=== PATIENT | female | born 1955 | race Caucasian/White ===

== ENCOUNTER 2024-05-06 12:58 | Inpatient (IN) | payer BC, MEDICARE, SELFPAY ==
--- NOTE | 2024-05-06 13:06 | HMH.PHAINT1 ---
Pharmacy Intervention Comments: MEDICATION RECONCILIATION COMPLETED ON PATIENT USING EXTERNAL FILL HISTORY FROM PHARMACY. -KARIE LUGO, STEPHANYD
[2024-05-06 13:08] VITALS: BP 187/74; PULSE 75; RESP 18; TEMP 36.5; O2SAT 98; BMI 35.5
--- NOTE | 2024-05-06 13:08 | ECG_ITS ---
APPROVED REPORT Exam: Resting ECG HR:74 bpm ECG Measurements Heart Rate 74 AXES NV 166 P 22 QRSd 88 QRS 24 QT 392 T 15 QTc 419 Conclusion SINUS RHYTHM LOW QRS VOLTAGE IN PRECORDIAL LEADS [QRS DEFLECTION < 1.0 mV IN CHEST LEADS] BORDERLINE ECG UNCONFIRMED REPORT Electronically signed by : Steve Husain MD 05/06/2024 21:12:06
--- NOTE | 2024-05-06 13:12 | P.HP_ITS ---
History of Present Illness *Admission Date: 05/06/24 *Reason for visit:: chf exacerbation *History of present illness: Ms. Reyes is a 68-year-old female with history of diabetes and hypertension who originally presented to [facility] with shortness of breath that is worsened over the past week. States she has been having increased swelling in her legs over the past few months. Increased dyspnea with exertion. Recently saw cardiology in [place] and had an echo that showed a leaky valve but she does not know any further results. She has had weight gain of at least 20 pounds in the past few months. Denies nausea, vomiting, diarrhea. Feels like her belly has been a little bit more bloated. Normally has stable blood pressure and stable on room air. On arrival to the hospital at [place] her sats were in the 70s. Necessitated supplemental oxygen. Kidney function slightly abnormal with creatinine of 1.5. Reportedly her diabetes is well-controlled with normal A1c and medications have been discontinued over the past year. Troponin with no delta on the labs. Chest x-ray was obtained showing large effusion on the right side. Medicine was consulted for admission and transfer for cardiology evaluation and workup. On arrival to our facility. Patient sats are in the mid 90s on 4 L oxygen. She has 3+ edema in her legs all the way up to her lower abdomen. She is alert and oriented x 4. Remains mildly hypertensive. Received 10 mg of hydralazine and 5 mg of Lopressor at [facility] along with 40 mg IV once of Lasix. Has voided once but unknown exact volume. Denies chest pain at this time. Currently has Nitropaste on her chest. EKG obtained on arrival showing low voltage sinus rhythm. [facility] Disclaimer: The information contained in this section may have been updated after the patient was seen, as this information can be updated by other users. Medical History (Updated 05/06/24 @ 16:00 by Jaziel Hancock MD) Edema Asthma Pneumonia Blind right eye Hyperlipidemia Diabetes mellitus CHF (congestive heart failure) Hypertension Surgical History History of tubal ligation History of ERCP H/O: History of left knee replacement Family History Other AD (Alzheimer's disease) Colorectal cancer Social History (Updated 05/06/24 @ 16:06 by Jaziel Hancock MD) Smoking Status: Never smoker alcohol intake: never current occupational status: employed Travel in the last 8 weeks: None Review of Systems Review of Systems Review of systems (narrative): 14 point review of systems performed, pertinent positives and negatives as per HPI Meds Home Medications and Allergies Home Medications ?Medication ?Instructions ?Recorded ?Confirmed ?Type atorvastatin 40 mg tablet 40 mg PO HS 05/06/24 05/06/24 History bumetanide 1 mg tablet 1 mg PO DAILY 05/06/24 05/06/24 History potassium chloride 10 mEq 10 meq PO DAILY 05/06/24 05/06/24 History tablet,extended release triamterene 37.5 1 tab PO DAILY 05/06/24 05/06/24 History mg-hydrochlorothiazide 25 mg tablet New Prescriptions to Start Prescriptions: Allergies Allergy/AdvReac Type Severity Reaction Status Date / Time pentazocine (From [employer]) Allergy Dizziness Verified 05/06/24 13:39 Exam Constitutional Constitutional: mild distress, obese, chronically ill appearing and cooperative *Routine HEENT Exam Head: Present normocephalic Eye: Present EOMI and PERRL ENT: Present mucous membranes moist *Routine Neck Exam Neck: Present supple; Absent lymphadenopathy *Routine Respiratory Exam Respiratory: Present prolonged expiratory phase, crackles and diminished air movement (in right lower lung field); Absent rhonchi or wheezes *Routine Cardiovascular Exam Cardiovascular: Present RRR *Routine Abdominal Exam Abdominal: Present soft and normoactive bowel sounds; Absent tenderness *Routine Rectal Exam Rectal:: deferred *Routine Genitalia Exam Genitalia:: deferred *Routine Extremities Exam Extremities: Present edema (3+ to lower abdomen); Absent cyanosis or clubbing *Routine Skin Exam Skin: Present warm; Absent rash *Routine Neurological Exam Neurological: Present alert, oriented X3 and moving all extremities; Absent altered mental status Assessment and Plan *Assessment and plan (1) Acute heart failure: Status: Acute Category: Medical Code(s): I50.9 - Heart failure, unspecified (2) Diabetes mellitus: Status: Chronic Category: Medical Code(s): E11.9 - Type 2 diabetes mellitus without complications (3) Hyperlipidemia: Status: Acute Category: Medical Code(s): E78.5 - Hyperlipidemia, unspecified (4) Hypertension: Status: Acute Category: Medical Code(s): I10 - Essential (primary) hypertension (5) Obesity (BMI 30-39.9): Status: Chronic Category: Medical Code(s): E66.9 - Obesity, unspecified Plan 68-year-old female admitted as transfer from [facility] due to acute CHF with development of effusion. Discussed case with ER physician at [facility], request admission for cardiology evaluation and further treatment of her effusion and volume overload. I agreed to admit for further care. Admitted to [facility] with telemetry due to unstable suspected heart failure that is acute and poses significant threat to function. Initiating aggressive diuresis. Given 2 mg Bumex on arrival, if not responding well will initiate Bumex drip. Continue supplemental oxygen as needed for goal sats greater 90%. Currently on 4 L. Remains hypertensive, will administer 37.5 mg once of irbesartan, Mr. Home medications today. Will initiate 75 mg irbesartan daily in the morning. Bumex 2 mg IV twice daily Initiate spironolactone 25 mg twice daily CBC, CMP, magnesium ordered for the morning Serial troponin pending Repeat BMP this evening to monitor kidney function A1c, TSH pending for the morning CT of the chest without contrast due to unknown kidney function and concern for KRIS. Will evaluate extent of effusion and other thoracic pathology. Echo ordered for the morning Cardiology consulted Reviewed chest x-ray results from [facility], shows effusion on right side. Full code Due to inability to obtain CTA, risk for PE, will therapeutically anticoagulate with 1 mg/kg Lovenox Cardiac diet Surrogate decision maker is her
[2024-05-06 14:09] LABS: NT Pro Brain Natriuretic Pep. 1610 pg/mL (0-125)
[2024-05-06 14:12] LABS: Troponin I < 0.01 ng/ml (0.00-0.034)
[2024-05-06 15:03] LABS: Coronavirus 19, PCR Not Detected (NotDetected); Influenza A, PCR Not Detected (NotDetected); Influenza B, PCR Not Detected (NotDetected)
[2024-05-06] MEDS: SPIRONOLACTONE 25MG TABLET 25 MG PO (15:18)
[2024-05-06] MEDS: BUMETANIDE 1MG/4ML VIAL 2 MG IV ×2 (15:19→21:03)
[2024-05-06] MEDS: humaLOG 100 UNITS/ML 10ML VIAL (SSI) SUBCUT ×2 (15:29→21:02)
[2024-05-06 15:33] LABS: POC Glucose,Bedside 201 (70-110)
--- NOTE | 2024-05-06 15:55 | CT_ITS ---
PROCEDURE INFORMATION: Exam: CT Chest Without Contrast; Diagnostic Exam date and time: 05/06/2024 5:34 PM Age: 68 years old Clinical indication: Dyspnea; Additional info: Effusion, dyspnea TECHNIQUE: Imaging protocol: Diagnostic computed tomography of the chest without contrast. Radiation optimization: All CT scans at this facility use at least one of these dose optimization techniques: automated exposure control; mA and/or kV adjustment per patient size (includes targeted exams where dose is matched to clinical indication); or iterative reconstruction. COMPARISON: No relevant prior studies available. FINDINGS: Lungs: Severe compressive right pulmonary atelectasis. Pleural spaces: Small left pleural effusion. Heart: Tiny pericardial effusion. Coronary arteries: Atherosclerotic calcification of left anterior descending coronary artery. Lymph nodes: Calcified mediastinal and hilar lymph nodes. No enlarged lymph nodes. Vasculature: Mild atherosclerotic calcification of thoracic aorta. No aneurysm. Bones/joints: Unremarkable. No acute fracture. Soft tissues: Unremarkable. Other findings: Near-complete opacification of right chest. IMPRESSION: 1. Very large right pleural effusion with severe compressive atelectasis. Small left pleural effusion. 2. Pericardial effusion.
[2024-05-06 16:00] VITALS: BP 159/76; PULSE 75; PULSE 80; RESP 16; TEMP 36.4; O2SAT 98
[2024-05-06] MEDS: ENOXAPARIN 100MG/ML SYRINGE 100 MG SUBCUT (17:00)
[2024-05-06] MEDS: IRBESARTAN 75MG TABLET 37.5 MG PO (17:00)
[2024-05-06 17:11] LABS: Troponin I < 0.01 ng/ml (0.00-0.034)
[2024-05-06 19:31] LABS: Troponin I 0.02 ng/ml (0.00-0.034)
[2024-05-06 19:37] LABS: Chloride 102 mmol/L (98-107); Potassium 4.4 mmoL/L (3.5-5.1); Sodium 133 mmol/L (136-145)
[2024-05-06 19:40] LABS: Anion Gap 6.4 mEq/L (5-15); Blood Urea Nitrogen 24 mg/dl (7-17); Carbon Dioxide 29 mmol/L (22.0-30.0); Creatinine Clearance Estimated 71 mL/min (50-200); Estimated Glomerular Filt Rate 45 ml/min (>60); GFR (African American) 54 ML/MIN (>60)
[2024-05-06 19:41] LABS: Calcium 8.3 mg/dl (8.4-10.2); Glucose 192 mg/dl (74-100)
[2024-05-06 20:00] VITALS: BP 160/82; PULSE 80; PULSE 82; RESP 18; TEMP 36.8; O2SAT 99
[2024-05-06 20:52] LABS: POC Glucose,Bedside 193 (70-110)
[2024-05-06] MEDS: ATORVASTATIN 40MG TABLET 40 MG PO (21:02)
[2024-05-07] VITALS (8 sets, daily range): BP systolic 148–163; BP diastolic 56–89; PULSE 60–86; RESP 16–20; TEMP 36.6–36.7; O2SAT 96–100; BMI 34.7
[2024-05-07] MEDS: ENOXAPARIN 100MG/ML SYRINGE 100 MG SUBCUT (04:00)
--- NOTE | 2024-05-07 05:06 | PC.NURSE ---
V/s, ox4. NPO at midnight for Echo in AM. Pt denied SOB, tolerating 4LNC satting in the 90's. No acute events to report, plan of care ongoing.
[2024-05-07 05:30] LABS: POC Glucose,Bedside 125 (70-110)
[2024-05-07 06:36] LABS: Basophils % 0.7 % (0.1-2.0); Eosinophils % 0.5 % (0.1-12.0); Hematocrit 33.2 % (37.0-47.0); Hemoglobin 11.1 g/dL (12.2-16.2); Lymphocytes % 18.1 % (10-50); Mean Corpuscular HGB Conc 33.4 g/dL (31.8-35.4); Mean Corpuscular Hemoglobin 29.6 pg (27.0-31.2); Mean Corpuscular Volume 88.5 fl (81-99); Mean Platelet Volume 11.5 fl (7.4-10.4); Monocytes # 0.5 K/mm3 (0.1-1.0); Monocytes % 8.3 % (1.7-9.3); Neutrophils # 4.1 K/mm3 (1.8-7.8); Neutrophils % 72.2 % (37.0-80.0); Platelet Count 99 K/mm3 (142-424); Red Blood Count 3.75 M/mm3 (4.20-5.40); Red Cell Distribution Width 12.7 % (11.5-17.5); White Blood Count 5.7 K/mm3 (4.8-10.8)
[2024-05-07 06:42] LABS: Alanine Aminotransferase 19 U/L (12-78); Albumin Level 3.2 g/dl (3.5-5.0); Albumin/Globulin Ratio 1.3 (1.1-1.8); Alkaline Phosphatase 117 U/L (38-126); Aspartate Amino Transferase 42 U/L (14-36); Bilirubin,Total 0.7 mg/dl (0.2-1.3); Blood Urea Nitrogen 23 mg/dl (7-17); Calcium 9.3 mg/dl (8.4-10.2); Carbon Dioxide 30 mmol/L (22.0-30.0); Chloride 104 mmol/L (98-107); Chol/HDL Ratio 2.7 (1-3.5); Cholesterol 156 mg/dl (140-200); Creatinine Clearance Estimated 70 mL/min (50-200); Estimated Glomerular Filt Rate 45 ml/min (>60); GFR (African American) 54 ML/MIN (>60); Globulin 2.5 g/dL (1.3-3.2); Glucose 127 mg/dl (74-100); HDL Cholesterol 57 mg/dl (40-60); Magnesium 1.6 mg/dl (1.6-2.3); Sodium 137 mmol/L (136-145); Total Protein,Serum 5.7 g/dl (6.3-8.2); Triglycerides 72 mg/dl (30-150); VLDL Cholesterol 14 mg/dL (0-40)
[2024-05-07 06:43] LABS: Hemoglobin A1C 5.4 % (4.0-6.0)
[2024-05-07 07:04] LABS: Anion Gap 7.1 mEq/L (5-15); Potassium 4.1 mmoL/L (3.5-5.1)
[2024-05-07 07:49] LABS: Thyroid Stimulating Hormone 2.69 uIU/mL (0.465-4.68)
--- NOTE | 2024-05-07 07:49 | P.PN_ITS ---
Subjective *Date: 05/07/24 *Time: 22:04 Interval history: Responding to diuretic but slowly. Still on 4 L oxygen on morning rounds. Pulmonology to see today. -1 L since admission. Afebrile. Reports feeling comfortable. Complains of right chest/lung pain when she takes a deep breath. No nausea or vomiting. Medical Exam Vital signs and Labs for Last 24 Hours: Vital Signs Temp Pulse Pulse Resp BP Pulse Ox O2 Del Method 05/07/24 06:32 Nasal Cannula 05/07/24 04:54 Nasal Cannula 05/07/24 04:00 98.0 F 84 16 162/89 H 98 Nasal Cannula 05/07/24 04:00 80 05/07/24 03:00 Nasal Cannula 05/07/24 01:00 Nasal Cannula 05/07/24 00:00 60 05/07/24 00:00 98.0 F 82 16 161/80 H 98 Nasal Cannula 05/06/24 23:00 Nasal Cannula 05/06/24 21:00 Nasal Cannula 05/06/24 20:00 Nasal Cannula 05/06/24 20:00 98.2 F 82 18 160/82 H 99 Room Air 05/06/24 20:00 80 05/06/24 18:31 Nasal Cannula 05/06/24 18:22 Nasal Cannula 05/06/24 17:00 Nasal Cannula 05/06/24 16:00 80 05/06/24 16:00 97.5 F L 75 16 159/76 H 98 Nasal Cannula 05/06/24 15:00 Nasal Cannula 05/06/24 13:08 97.7 F 75 18 187/74 H 98 Nasal Cannula 05/06/24 13:04 Nasal Cannula O2 Flow Rate 05/07/24 06:32 4 05/07/24 04:54 4 05/07/24 04:00 4 05/07/24 04:00 05/07/24 03:00 4 05/07/24 01:00 4 05/07/24 00:00 05/07/24 00:00 4 05/06/24 23:00 4 05/06/24 21:00 4 05/06/24 20:00 4 05/06/24 20:00 05/06/24 20:00 05/06/24 18:31 4 05/06/24 18:22 4 05/06/24 17:00 4 05/06/24 16:00 05/06/24 16:00 4 05/06/24 15:00 4 05/06/24 13:08 4 05/06/24 13:04 4 Intake and Output 05/06/24 05/06/24 05/07/24 15:59 23:59 07:59 Intake Total 270 / 270 0 / 0 Output Total 500 / 900 775 / 775 Balance -230 / -630 -775 / -775 Intake: Intake, Oral Amount 270 / 270 0 / 0 Output: Output, Urine Amount 500 / 900 775 / 775 Other: Weight 99.932 kg 98.203 kg Patient Weight 05/07/24 23:59 Weight 98.203 kg Laboratory Results - last 24 hr 05/06/24 13:45: Troponin I < 0.01, NT-Pro-B Natriuret Pep 1610 H 05/06/24 13:57: SARS-CoV-2 (PCR) Not detected, Influenza A Untype (PCR) Not detected, Influenza Type B (PCR) Not detected 05/06/24 15:26: POC Glucose 201 H 05/06/24 16:20: Troponin I < 0.01 05/06/24 19:02: Sodium 133 L, Potassium 4.4, Chloride 102, Carbon Dioxide 29, Anion Gap 6.4, BUN 24 H, Creatinine 1.20 H, Estimated Creat Clear 71, Estimated GFR 45 L, Est GFR ( Amer) 54 L, Glucose 192 H, Calcium 8.3 L, Troponin I 0.02 05/06/24 20:46: POC Glucose 193 H 05/07/24 05:22: POC Glucose 125 H 05/07/24 05:49: WBC 5.7, RBC 3.75 L, Hgb 11.1 L, Hct 33.2 L, MCV 88.5, MCH 29.6, MCHC 33.4, RDW 12.7, Plt Count 99 L, MPV 11.5 H, Neut % (Auto) 72.2, Lymph % (Auto) 18.1, [place] % (Auto) 8.3, Eos % (Auto) 0.5, Baso % (Auto) 0.7, Neut # (Auto) 4.1, Lymph # (Auto) 1.0, [place] # (Auto) 0.5, Eos # (Auto) 0.0, Baso # (Auto) 0.0, Sodium 137, Potassium 4.1, Chloride 104, Carbon Dioxide 30, Anion Gap 7.1, BUN 23 H, Creatinine 1.20 H, Estimated Creat Clear 70, Estimated GFR 45 L, Est GFR ( Amer) 54 L, Glucose 127 H D, Hemoglobin A1c 5.4, Calcium 9.3, Magnesium 1.6, Total Bilirubin 0.7, AST 42 H, ALT 19, Alkaline Phosphatase 117, Total Protein 5.7 L, Albumin 3.2 L, Globulin 2.5, Albumin/Globulin Ratio 1.3, Triglycerides 72, Cholesterol 156, LDL Cholesterol Direct 62.50 L, VLDL Cholesterol 14, HDL Cholesterol 57, Cholesterol/HDL Ratio 2.7, TSH 2.69 I & O for Labs for Last 24 Hours: Intake & Output 05/04/24 05/05/24 05/06/24 05/07/24 23:59 23:59 23:59 23:59 Intake Total 270 / 270 0 / 0 Output Total 500 / 900 775 / 775 Balance -230 / -630 -775 / -775 Weight 99.932 kg 98.203 kg Constitutional: Present mild distress, obese, chronically ill appearing and cooperative Head: Present atraumatic and normocephalic ENT: Present normal exam Respiratory: Present accessory muscle use and diminished air movement (Right lung field); Absent rhonchi, wheezes or crackles Cardiac: Present Reg Rate and Rhythm GI: Present soft and normal bowel sounds; Absent distention or tenderness Extremities: Present normal inspection, full ROM and edema (3+ to thighs) Skin: Present intact; Absent erythema Neuro: Present Grossly Intact, alert, awake, oriented x 3 and moves all extremities Assessment and Plan *Assessment and plan (1) Acute heart failure: Status: Acute Qualifiers: Heart failure type: unspecified Qualified Code(s): I50.9 - Heart failure, unspecified Category: Medical Code(s): I50.9 - Heart failure, unspecified (2) Diabetes mellitus: Status: Chronic Qualifiers: Diabetes mellitus complication status: without complication Diabetes mellitus intermission coordinator insulin use: without intermission coordinator use Diabetes mellitus type: type 2 Qualified Code(s): E11.9 - Type 2 diabetes mellitus without complications Category: Medical Code(s): E11.9 - Type 2 diabetes mellitus without complications (3) Hyperlipidemia: Status: Acute Qualifiers: Hyperlipidemia type: mixed hyperlipidemia Qualified Code(s): E78.2 - Mixed hyperlipidemia Category: Medical Code(s): E78.5 - Hyperlipidemia, unspecified (4) Hypertension: Status: Acute Qualifiers: Hypertension type: primary hypertension Qualified Code(s): I10 - Essential (primary) hypertension Category: Medical Code(s): I10 - Essential (primary) hypertension (5) Obesity (BMI 30-39.9): Status: Chronic Category: Medical Code(s): E66.9 - Obesity, unspecified Plan 68-year-old female admitted as transfer from [facility] due to acute CHF with development of effusion. Discussed case with ER physician at [facility], request admission for cardiology evaluation and further treatment of her effusion and volume overload. I agreed to admit for further care. Admitted to [facility] with telemetry due to unstable suspected heart failure that is acute and poses significant threat to function. Initiating aggressive diuresis. Given 2 mg Bumex on arrival. Response inadequate. Initiate Bumex drip today. Cardiology evaluating. Pulmonology consulted for thoracentesis. Continue supplemental oxygen as needed for goal sats greater 90%. Currently on 4 L. Continues to require inpatient management. Acute HFpEF Pleural effusion -Continue irbesartan 75 mg daily. Continue diuretics with Bumex drip. Strict I's and O's. -Echo obtained showing preserved EF, elevated RVSP. Consistent with HFpEF. -White count normal at 5.7, BUN 23, creatinine 1.2, magnesium 1.6 and potassium 4.1. Repeat CBC, CMP, magnesium ordered for the morning. Close monitoring of electrolytes with diuresis. -Continue spironolactone 25 mg twice daily -Discussed case with pulmonology, plan for thoracentesis today and will leave pigtail in place for drainage of large effusion. Wean oxygen as tolerated for goal sats greater 90%. Anticipate improvement as effusion drains and lung expands. -Serial troponins were negative. A1c obtained at 5.4. -Reviewed CT chest from yesterday, per my review has very large right sided pleural effusion, small pericardial effusion. Compressive atelectasis of right middle and lower lobe -Will consider further ischemic eval pending response to diuresis and medical optimization of her heart failure; cardiology assisting with care. Full code Cardiac diet Lovenox 40 mg subcu daily Surrogate decision maker is her
[2024-05-07] MEDS: POTASSIUM CHLORIDE 10MEQ CAPSULE.ER 10 MEQ PO (08:36)
[2024-05-07] MEDS: BUMETANIDE 10 MG in 0.9 % SODIUM CHLORIDE 60 ML 5 MG IV (08:36)
[2024-05-07] MEDS: IRBESARTAN 75MG TABLET 75 MG PO (08:36)
[2024-05-07] MEDS: SPIRONOLACTONE 25MG TABLET 25 MG PO ×2 (08:36→16:21)
--- NOTE | 2024-05-07 08:45 | P.CONCA_ITS ---
History of Present Illness History of Present Illness Consult date: 05/07/24 Requesting physician: Jaziel Hancock Consult reason: congestive heart failure Chief complaint: CHF, Right Pleural Effusion Additional Medical History:: 1. Left surgery, 2023 2. HTN 3. DM, treated for years A. 50-60 lb wt loss due to dental work in 2023 B. DM meds stopped due to hypoglycemia, 02/2024 4. Obesity 5. CHF with large right pleural effusion and partial lung collapse, 04/2024 History of present illness: Ms. Reyes is a 68-year-old female with history of diabetes and hypertension who originally presented to [facility] with shortness of breath that is worsened over the past week. States she has been having increased swelling in her legs over the past few months. Increased dyspnea with exertion. Recently saw cardiology in [place] and had an echo that showed a leaky valve but she does not know any further results. She has had weight gain of at least 20 pounds in the past few months. Denies nausea, vomiting, diarrhea. Feels like her belly has been a little bit more bloated. Normally has stable blood pressure and stable on room air. On arrival to the hospital at [place] her sats were in the 70s. Necessitated supplemental oxygen. Kidney function slightly abnormal with creatinine of 1.5. Reportedly her diabetes is well-controlled with normal A1c and medications have been discontinued over the past year. Troponin with no delta on the labs. Chest x-ray was obtained showing large effusion on the right side. Medicine was consulted for admission and transfer for cardiology evaluation and workup. On arrival to our facility. Patient sats are in the mid 90s on 4 L oxygen. She has 3+ edema in her legs all the way up to her lower abdomen. She is alert and oriented x 4. Remains mildly hypertensive. Received 10 mg of hydralazine and 5 mg of Lopressor at [facility] along with 40 mg IV once of Lasix. Has voided once but unknown exact volume. Denies chest pain at this time. Currently has Nitropaste on her chest. EKG obtained on arrival showing low voltage sinus rhythm. The above per Dr. Hancock H&P. Events above confirmed with the patient. She denies any prior cardiac issues except for the aforementioned leaky valve on recent echo in [place]. Hypertension has been treated for many years. Diabetes mellitus, treated for many years but recently due to 50 to 60 pound weight loss related to inability to eat from dental work resulted in hypoglycemic episodes and subsequent discontinuation of diabetes medications in the last few months. Non-smoker [facility] Disclaimer: The information contained in this section may have been updated after the patient was seen, as this information can be updated by other users. Medical History (Updated 05/07/24 @ 12:59 by GEOVANNY Bush) Pleural effusion, bilateral Acute respiratory failure with hypoxia Edema Asthma Pneumonia Blind right eye Hyperlipidemia Diabetes mellitus CHF (congestive heart failure) Hypertension Surgical History History of tubal ligation History of ERCP H/O: History of left knee replacement Family History Other AD (Alzheimer's disease) Colorectal cancer Social History (Updated 05/06/24 @ 16:06 by Jaziel Hancock MD) Smoking Status: Never smoker alcohol intake: never current occupational status: employed Travel in the last 8 weeks: None Have you lived/traveled outside US in past 30 days?: No Contact w/someone who lives/traveled outside US past 30 days?: No Exposure to someone with infectious disease in past 14 days?: No Do you have a fever (greater than 100.4 F or 38 C)?: No Have you tested positive for COVID-19: No Exposed to someone with COVID-19 in past 14 days?: No Do you have a sore throat?: No Do you have a cough?: No Do you have any weakness?: No Do you have any diarrhea?: No Are you experiencing any unusual bleeding?: No Do you have any muscle aches/pain?: No Do you have any abdominal pain?: No Are you experiencing loss of taste or smell?: No Review of Systems Review of Systems Review of systems:: pertinent systems reviewed and negative unless documented below *Cardiovascular Cardiovascular: Denies chest pain, Reports dyspnea, Reports dyspnea on exertion and Reports leg edema *Respiratory Respiratory: Reports dyspnea and Reports dyspnea on exertion Exam Data for Last 24 hours Vital signs and Labs for Last 24 Hours: Temp Pulse Resp BP Pulse Ox O2 Del Method O2 Flow Rate 98.0 F 86 20 163/72 H 97 Nasal Cannula 4 05/07/24 08:00 05/07/24 08:00 05/07/24 08:00 05/07/24 08:00 05/07/24 08:00 05/07/24 08:00 05/07/24 08:00 Laboratory Results - last 24 hr 05/06/24 13:45: Troponin I < 0.01, NT-Pro-B Natriuret Pep 1610 H 05/06/24 13:57: SARS-CoV-2 (PCR) Not detected, Influenza A Untype (PCR) Not detected, Influenza Type B (PCR) Not detected 05/06/24 15:26: POC Glucose 201 H 05/06/24 16:20: Troponin I < 0.01 05/06/24 19:02: Sodium 133 L, Potassium 4.4, Chloride 102, Carbon Dioxide 29, Anion Gap 6.4, BUN 24 H, Creatinine 1.20 H, Estimated Creat Clear 71, Estimated GFR 45 L, Est GFR ( Amer) 54 L, Glucose 192 H, Calcium 8.3 L, Troponin I 0.02 05/06/24 20:46: POC Glucose 193 H 05/07/24 05:22: POC Glucose 125 H 05/07/24 05:49: WBC 5.7, RBC 3.75 L, Hgb 11.1 L, Hct 33.2 L, MCV 88.5, MCH 29.6, MCHC 33.4, RDW 12.7, Plt Count 99 L, MPV 11.5 H, Neut % (Auto) 72.2, Lymph % (Auto) 18.1, [place] % (Auto) 8.3, Eos % (Auto) 0.5, Baso % (Auto) 0.7, Neut # (Auto) 4.1, Lymph # (Auto) 1.0, [place] # (Auto) 0.5, Eos # (Auto) 0.0, Baso # (Auto) 0.0, Sodium 137, Potassium 4.1, Chloride 104, Carbon Dioxide 30, Anion Gap 7.1, BUN 23 H, Creatinine 1.20 H, Estimated Creat Clear 70, Estimated GFR 45 L, Est GFR ( Amer) 54 L, Glucose 127 H D, Hemoglobin A1c 5.4, Calcium 9.3, Magnesium 1.6, Total Bilirubin 0.7, AST 42 H, ALT 19, Alkaline Phosphatase 117, Total Protein 5.7 L, Albumin 3.2 L, Globulin 2.5, Albumin/Globulin Ratio 1.3, Triglycerides 72, Cholesterol 156, LDL Cholesterol Direct 62.50 L, VLDL Cholesterol 14, HDL Cholesterol 57, Cholesterol/HDL Ratio 2.7, TSH 2.69 I & O for Last 24 hours: Intake & Output 05/04/24 05/05/24 05/06/24 05/07/24 11:59 11:59 11:59 11:59 Intake Total 270 / 270 Output Total 1275 / 1275 Balance -1005 / -1005 Weight 216 lb 8 oz Constitutional Constitutional: mild distress *Routine Respiratory Exam Respiratory: Present decreased breath sounds (Right lung two thirds of the way up with tight expiration/wheezing noted) and wheezes *Routine Cardiovascular Exam Cardiovascular: Present RRR, murmur and tachycardia; Absent gallop or rubs *Routine Extremities Exam Extremities: Present edema *Routine Neurological Exam Neurological: Present alert, oriented X3 and CN II-XII intact Meds Home Medications and Allergies Home Medications ?Medication ?Instructions ?Recorded ?Confirmed ?Type atorvastatin 40 mg tablet 40 mg PO HS 05/06/24 05/06/24 History bumetanide 1 mg tablet 1 mg PO DAILY 05/06/24 05/06/24 History potassium chloride 10 mEq 10 meq PO DAILY 05/06/24 05/06/24 History tablet,extended release triamterene 37.5 1 tab PO DAILY 05/06/24 05/06/24 History mg-hydrochlorothiazide 25 mg tablet New Prescriptions to Start Prescriptions: Allergies Allergy/AdvReac Type Severity Reaction Status Date / Time pentazocine (From Shilpi) Allergy Dizziness Verified 05/06/24 13:39 Assessment and Plan *Assessment and plan (1) Acute heart failure: Status: Acute Qualifiers: Heart failure type: unspecified Qualified Code(s): I50.9 - Heart failure, unspecified Category: Medical Code(s): I50.9 - Heart failure, unspecified (2) Pleural effusion, right: Status: Acute Category: Medical Code(s): J90 - Pleural effusion, not elsewhere classified (3) Hypoxemia: Status: Acute Category: Medical Code(s): R09.02 - Hypoxemia (4) Diabetes mellitus: Status: Chronic Qualifiers: Diabetes mellitus complication status: without complication Diabetes mellitus mcc insulin use: without lobsterman use Diabetes mellitus type: type 2 Qualified Code(s): E11.9 - Type 2 diabetes mellitus without complication s Category: Medical Code(s): E11.9 - Type 2 diabetes mellitus without complications (5) Hyperlipidemia: Status: Acute Qualifiers: Hyperlipidemia type: mixed hyperlipidemia Qualified Code(s): E78.2 - Mixed hyperlipidemia Category: Medical Code(s): E78.5 - Hyperlipidemia, unspecified (6) Hypertension: Status: Acute Qualifiers: Hypertension type: primary hypertension Qualified Code(s): I10 - Essential (primary) hypertension Category: Medical Code(s): I10 - Essential (primary) hypertension (7) Obesity (BMI 30-39.9): Status: Chronic Category: Medical Code(s): E66.9 - Obesity, unspecified (8) Acute kidney injury: Status: Acute Category: Medical Code(s): N17.9 - Acute kidney failure, unspecified (9) Pericardial effusion without cardiac tamponade: Status: Acute Category: Medical Code(s): I31.39 - Other pericardial effusion (noninflammatory) (10) Pleural effusion, bilateral: Status: Acute Category: Medical Code(s): J90 - Pleural effusion, not elsewhere classified (11) Acute respiratory failure with hypoxia: Status: Acute Category: Medical Code(s): J96.01 - Acute respiratory failure with hypoxia (12) Coronary artery calcification seen on CT scan: Status: Acute Category: Medical Code(s): I25.10 - Atherosclerotic heart disease of [place] coronary artery without angina pectoris Plan 1. Large right pleural effusion with hypoxemia -Supplemental oxygen in place -Pulmonary consult pending -? need for thoracentesis 2. Acute diastolic heart failure with 3+ lower extremity edema -Bumex drip and oral spironolactone started -Echocardiogram shows normal LVEF -Troponins within normal limits 3. Diabetes mellitus -Defer to Dr. Hancock -Hemoglobin A1c 5.4 4. Hypertension -Patient has been started on irbesartan 5. Hyperlipidemia -Atorvastatin continued 6. Obesity -Prophylactic Lovenox therapy started for possible PE 7. Acute kidney injury -Follow with diuresis 8. Coronary artery calcification on CT -will need workup as outpatient -continue statin 9. Pericardial effusion without tamponade -follow clinically and with PRN echo Echo results: Technically difficult study due to poor acoustic windows. Normal biventricular systolic function. Grade 2 diastolic dysfunction. Mild RV dilation. Biatrial dilation. Systolic anterior motion (MARLEY) of the MV leaflets is present, without septal contact. Mild MR, mild TR. Elevated RVSP is 45-50 mmHg. Small sized, circumferential pericardial effusion present. The largest pocket measures 0.5 cm in diastole. No echo indications of tamponade. Pleural effusion and ascites are also present. Continue diuresis. Thoracentesis per Pulmonary.
[2024-05-07] MEDS: BUMETANIDE 1MG/4ML VIAL 2 MG IV (08:47)
--- NOTE | 2024-05-07 09:57 | P.CONS_ITS ---
History of Present Illness History of present illness: Ms. Malik is a 68-year-old female history of diabetes mellitus hypertension presented to the ER with worsening respiratory distress and pulmonary was called for further evaluation and management. Patient also admits worsening swelling in her lower extremities and weight gain. Patient admits she is a never smoker. Not using any oxygen supplementation or inhalers at baseline [facility] Disclaimer: The information contained in this section may have been updated after the patient was seen, as this information can be updated by other users. Medical History (Updated 05/07/24 @ 11:22 by Alexandre Arellano MD) Pleural effusion, bilateral Acute respiratory failure with hypoxia Edema Asthma Pneumonia Blind right eye Hyperlipidemia Diabetes mellitus CHF (congestive heart failure) Hypertension Surgical History History of tubal ligation History of ERCP H/O: History of left knee replacement Family History Other AD (Alzheimer's disease) Colorectal cancer Social History (Updated 05/06/24 @ 16:06 by Jaziel Hancock MD) Smoking Status: Never smoker alcohol intake: never current occupational status: employed Travel in the last 8 weeks: None Have you lived/traveled outside US in past 30 days?: No Contact w/someone who lives/traveled outside US past 30 days?: No Exposure to someone with infectious disease in past 14 days?: No Do you have a fever (greater than 100.4 F or 38 C)?: No Have you tested positive for COVID-19: No Exposed to someone with COVID-19 in past 14 days?: No Do you have a sore throat?: No Do you have a cough?: No Do you have any weakness?: No Do you have any diarrhea?: No Are you experiencing any unusual bleeding?: No Do you have any muscle aches/pain?: No Do you have any abdominal pain?: No Are you experiencing loss of taste or smell?: No Review of Systems Constitutional Constitutional: Reports anorexia, Reports body ache(s) and Reports fatigue Eyes Eyes: Denies eye discharge, Denies dry eyes, Denies irritation and Denies itchy eyes ENT Ears, Nose, Mouth, and Throat: Denies epistaxis, Denies facial pain, Denies lip swelling and Denies throat swelling *Cardiovascular Cardiovascular: Reports dyspnea, Reports dyspnea on exertion, Reports leg edema and Reports orthopnea *Respiratory Respiratory: Denies change in phlegm color, Reports chest congestion, Reports cough, Reports dyspnea, Reports dyspnea on exertion, Denies excessive phlegm production, Denies hemoptysis, Denies pain on inspiration, Denies pain with cough and Denies wheezing *Gastrointestinal Gastrointestinal: Denies abdominal pain, Denies belching and Denies cramping *Musculoskeletal Musculoskeletal: Reports back pain, Reports myalgias and Reports other (No small joint swelling or Pain) Psychiatric Psychiatric: Denies homicidal ideation and Denies suicidal ideation Endocrine Endocrine: Reports fatigue and Denies heat intolerance Hematologic/Lymphatic Hematologic/Lymphatic: Denies easy bleeding and Denies lymphadenopathy Allergic/Immunologic Allergic/Immunologic: Denies itchy eyes, Denies lip swelling, Denies throat swelling and Denies wheezing Pulmonology Exam Inpatient Vital signs and Labs for Last 24 Hours: Temp Pulse Resp BP Pulse Ox O2 Del Method O2 Flow Rate 98.0 F 86 20 163/72 H 97 Nasal Cannula 4 05/07/24 08:00 05/07/24 08:00 05/07/24 08:00 05/07/24 08:00 05/07/24 08:00 05/07/24 09:00 05/07/24 09:00 Laboratory Results - last 24 hr 05/06/24 13:45: Troponin I < 0.01, NT-Pro-B Natriuret Pep 1610 H 05/06/24 13:57: SARS-CoV-2 (PCR) Not detected, Influenza A Untype (PCR) Not detected, Influenza Type B (PCR) Not detected 05/06/24 15:26: POC Glucose 201 H 05/06/24 16:20: Troponin I < 0.01 05/06/24 19:02: Sodium 133 L, Potassium 4.4, Chloride 102, Carbon Dioxide 29, Anion Gap 6.4, BUN 24 H, Creatinine 1.20 H, Estimated Creat Clear 71, Estimated GFR 45 L, Est GFR ( Amer) 54 L, Glucose 192 H, Calcium 8.3 L, Troponin I 0.02 05/06/24 20:46: POC Glucose 193 H 05/07/24 05:22: POC Glucose 125 H 05/07/24 05:49: WBC 5.7, RBC 3.75 L, Hgb 11.1 L, Hct 33.2 L, MCV 88.5, MCH 29.6, MCHC 33.4, RDW 12.7, Plt Count 99 L, MPV 11.5 H, Neut % (Auto) 72.2, Lymph % (Auto) 18.1, [place] % (Auto) 8.3, Eos % (Auto) 0.5, Baso % (Auto) 0.7, Neut # (Auto) 4.1, Lymph # (Auto) 1.0, [place] # (Auto) 0.5, Eos # (Auto) 0.0, Baso # (Auto) 0.0, Sodium 137, Potassium 4.1, Chloride 104, Carbon Dioxide 30, Anion Gap 7.1, BUN 23 H, Creatinine 1.20 H, Estimated Creat Clear 70, Estimated GFR 45 L, Est GFR ( Amer) 54 L, Glucose 127 H D, Hemoglobin A1c 5.4, Calcium 9.3, Magnesium 1.6, Total Bilirubin 0.7, AST 42 H, ALT 19, Alkaline Phosphatase 117, Total Protein 5.7 L, Albumin 3.2 L, Globulin 2.5, Albumin/Globulin Ratio 1.3, Triglycerides 72, Cholesterol 156, LDL Cholesterol Direct 62.50 L, VLDL Cholesterol 14, HDL Cholesterol 57, Cholesterol/HDL Ratio 2.7, TSH 2.69 I & O for Labs for Last 24 Hours: Intake & Output 05/04/24 05/05/24 05/06/24 05/07/24 23:59 23:59 23:59 23:59 Intake Total 270 / 270 0 / 0 Output Total 500 / 900 925 / 925 Balance -230 / -630 -925 / -925 Weight 220 lb 5 oz 216 lb 8 oz Constitutional: Present moderate distress Head: Present normocephalic and atraumatic ENT: Present normal exam, normal oropharynx and mucous membranes moist Neck: Present normal inspection and full ROM Respiratory: Present respiratory distress, crackles, diminished air movement and able to speak in complete sentences; Absent prolonged expiratory phase, rhonchi or wheezes Cardiac: Present S1/S2, Tachycardia and radial pulses present GI: Present soft and distention; Absent tenderness or guarding Rectal (female): Present deferred (female): Present deferred Skin: Present intact; Absent cyanosis or jaundice Neuro: Present alert, awake and oriented x 3 Extremities: Present normal inspection and edema; Absent clubbing or cyanosis Psychiatric: Present normal affect and cooperative Meds Home Medications and Allergies Home Medications ?Medication ?Instructions ?Recorded ?Confirmed ?Type atorvastatin 40 mg tablet 40 mg PO HS 05/06/24 05/06/24 History bumetanide 1 mg tablet 1 mg PO DAILY 05/06/24 05/06/24 History potassium chloride 10 mEq 10 meq PO DAILY 05/06/24 05/06/24 History tablet,extended release triamterene 37.5 1 tab PO DAILY 05/06/24 05/06/24 History mg-hydrochlorothiazide 25 mg tablet New Prescriptions to Start Prescriptions: Allergies Allergy/AdvReac Type Severity Reaction Status Date / Time pentazocine (From Shilpi) Allergy Dizziness Verified 05/06/24 13:39 Results Laboratory Findings 05/07/24 05:49 05/07/24 05:49 Abnormal lab findings: Abnormal Labs 05/06/24 05/06/24 05/06/24 13:45 15:26 19:02 RBC Hgb Hct Plt Count MPV Sodium 133 L BUN 24 H Creatinine 1.20 H Estimated GFR 45 L Est GFR ( Amer) 54 L Glucose 192 H POC Glucose 201 H Calcium 8.3 L AST NT-Pro-B Natriuret Pep 1610 H Total Protein Albumin LDL Cholesterol Direct 05/06/24 05/07/24 05/07/24 20:46 05:22 05:49 RBC 3.75 L Hgb 11.1 L Hct 33.2 L Plt Count 99 L MPV 11.5 H Sodium BUN 23 H Creatinine 1.20 H Estimated GFR 45 L Est GFR ( Amer) 54 L Glucose 127 H D POC Glucose 193 H 125 H Calcium AST 42 H NT-Pro-B Natriuret Pep Total Protein 5.7 L Albumin 3.2 L LDL Cholesterol Direct 62.50 L Assessment and Plan *Assessment and plan (1) Acute respiratory failure with hypoxia: Status: Acute Category: Medical Code(s): J96.01 - Acute respiratory failure with hypoxia (2) Pleural effusion, bilateral: Status: Acute Category: Medical Code(s): J90 - Pleural effusion, not elsewhere classified Plan Ms. Malik is a 68-year-old female history of diabetes mellitus hypertension presented to the ER with worsening respiratory distress and pulmonary was called for further evaluation and management. Patient also admits worsening swelling in her lower extremities and weight gain. Patient admits she is a never smoker. Not using any oxygen supplementation or inhalers at baseline CT chest upon admission with large right pleural effusion along with adjacent atelectasis. Small left pleural effusion noted. No other airspace disease/consolidative changes noted Afebrile. Hemodynamically stable. No evidence of leukocytosis. Flu and COVID- 19 PCR panel negative Plan: Plan for right-sided thoracentesis Continue oxygen supplementation to maintain O2 saturation goal of 90% and above No need for antibiotics or steroids at this point of time. # Thank you for involving pulmonary in this patient care. Will continue to follow.
[2024-05-07] MEDS: SODIUM CHLORIDE 3% 15ML NEB 3 ML IH (10:04)
--- NOTE | 2024-05-07 10:06 | US_ITS ---
FINAL REPORT CLINICAL HISTORY: Pleural effusion - 1085 ml removed - rt side FINDINGS: ULTRASOUND-GUIDED THORACENTESIS HISTORY: Pleural effusion. TECHNIQUE: . Ultrasound was provided for the clinical service and performance of a thoracentesis. 1.08 L of fluid were reportedly obtained. IMPRESSION: Technically successful sonographic guided left-sided thoracentesis performed by clinical service. Reviewed, Interpreted and Dictated by Samantha Mckeon MD Transcribed by GEOVANNY Matos Authenticated and [facility]
[2024-05-07 10:24] LABS: Lactate Dehydrogenase 263 U/L (313-618)
[2024-05-07 12:01] LABS: POC Glucose,Bedside 147 (70-110)
--- NOTE | 2024-05-07 12:30 | PC.NURSE ---
mae and paul at bs for thoracentesis
--- NOTE | 2024-05-07 13:11 | CA_ITS ---
APPROVED REPORT EXAM: Comprehensive 2D, Doppler, and color-flow Echocardiogram Treasury Specialist: Debbi Laughlin CRT Ht: 5 ft 6 in Wt: 216lbs BSA: 2.07 BP: 122/78 mmHg Indications: Congestive Heart Failure, Shortness of Breath, Peripheral Edema, Hyperlipidemia, Pleural Effusion, Hypertension/HDD, 20 lb weight gain in few months M-Mode Dimensions RVDd 2.97 cm (0.9-2.6) LA Diam 3.80 cm (1.9-4.0) LVDd 4.72 cm (3.5-5.7) LVDs 2.04 cm (3.5-5.7) IVSd 1.32 cm (0.6-1.1) PWd 1.14 cm (0.6-1.1) EF (Teich) 87.00% FS 56.80% EDV (Teich) 103.40 mL TAPSE 3.07 (<1.7) ESV (Teich) 13.40 mL LV Diastology E Decel Time 130 (160-240 msec) E/A Ratio 1.18 MED A' 11.10 cm/s LAT A' 13.40 cm/s Aortic Valve HARINI Index 0.94 cm2/m2 AoV Peak Chivo. 210.0 (50-130 cm/s) AO Peak GR. 17.70 mmHg AO Mean GR. 8.10 (<5 mmHg) AO VTI 42.4 (18-25 cm) HARINI (VTI) 1.99 (2.5-4.5 cm2) Mitral Valve MV A Velocity 117.0 (40-130 cm/s) E/A Ratio 1.18 Pulmonary Valve PV Peak Velocity 189.0 (50-150 cm/s) Tricuspid Valve TR P. Velocity 378.00 cm/s RAP Estimate 10.00 mmHg RVSP 67.10 mmHg Left Ventricle The left ventricle is normal size. The left ventricular systolic function is normal. The left ventricular ejection fraction is within the normal range. There is increased LV wall thickness. There is normal LV segmental wall motion. Grade 2 diastolic dysfunction present. LVEF is 60%. Right Ventricle The right ventricle is not very well-visualized, but grossly appears at least mildly dilated with likely normal RV function. Atria The left atrium is moderately dilated. Right atrium is mildly dilated. There is no Doppler evidence of interatrial shunt. Aortic Valve The aortic valve is normal in structure. There is no hemodynamically significant aortic valvular stenosis. Trace aortic regurgitation. Mitral Valve Systolic anterior motion (MARLEY) is present, with no evidence of septal contact. The mitral valve leaflets are mildly thickened. Mild mitral regurgitation. No evidence of mitral valve stenosis. Tricuspid Valve Tricuspid valve is grossly normal in structure and function. Mild tricuspid regurgitation. RVSP is 45-50 mmHg. Pulmonic Valve The pulmonary valve is normal in structure. Mild pulmonic regurgitation. Great Vessels The aortic root is normal in size. IVC is normal in size and collapses >50% with inspiration. Pericardium There is a small sized, circumferential pericardial effusion present. The largest pocket measures 0.5 cm in diastole. No echo indications of tamponade. Pleural effusion is present. Hepatic ascites is also present. Other Information Study Quality: Technically Difficult Conclusion Technically difficult study due to poor acoustic windows. Normal biventricular systolic function. Grade 2 diastolic dysfunction. Mild RV dilation. Biatrial dilation. Systolic anterior motion (MARLEY) of the MV leaflets is present, without septal contact. Mild MR, mild TR. Elevated RVSP is 45-50 mmHg. Small sized, circumferential pericardial effusion present. The largest pocket measures 0.5 cm in diastole. No echo indications of tamponade. Pleural effusion and ascites are also present. Electronically signed by : Rima Sellers MD 05/07/2024 12:21:14
--- NOTE | 2024-05-07 13:19 | HMH.PROCNOTE ---
[facility] Procedure Note Date: 05/07/24 Time: 13:19 Procedure Note:: Procedure: Right Thoracentesis Indication for procedure: Pleural Effusion, Hypoxic Respiratory failure A time out was performed, and the chest x-ray was reviewed, the appropriate side was confirmed and marked. My hands were washed immediately prior to the procedure. I wore a surgical cap, mask with protective eyewear, sterile gown, and sterile gloves throughout the procedure. The patient was prepped and draped in a sterile manner using chlorhexidine scrub after the appropriate level was percussed and confirmed by ultrasound. 1% lidocaine was used to anesthetize the skin, ?subcutaneous tissue, superior aspect of the rib periosteum and parietal pleura.? A finder needle was then introduced at the seventh intercoastal space posteriorly?to locate the pleural fluid; straw colored fluid was aspirated. A 10-blade scalpel was used to lois the skin at the insertion site. The Ewan-h-Zbknwose needle was then introduced through the skin incision into the pleural space using negative aspiration pressure and the red colorimetric indicator to confirm appropriate positioning of the needle. The thoracentesis catheter was then threaded without difficulty.? 1085 ml of straw-colored?fluid was removed without difficulty. The catheter was then left in place and connected to Pleur-evac to drain the rest of the fluid. Chest tube was connected to -20 cm water suction pressure. No immediate complications were noted during the procedure. A post-procedure chest X-ray is pending at the time of this note. The fluid will be sent for routine pleural studies, cultures along with cytopathology.? Patient tolerated the procedure well? Estimated blood loss is 5cc.
[2024-05-07 14:52] LABS: Appearance,Body Fld. Normal; Source, Body Fld. Thoracentesis Fluid; Volume,Body Fld. 1085 mL
[2024-05-07 14:53] LABS: TNC,Body Fluid 1413 cells/uL (< 1000)
[2024-05-07 14:55] LABS: RBC,Body Fluid < 10 cells/uL (< 10 X 10^3)
[2024-05-07 15:10] LABS: Mononuclear WBCs,Body Fluid 90 %; Polynuclear WBC,Body Fluid 10 %
--- NOTE | 2024-05-07 15:51 | XR_ITS ---
FINAL REPORT TECHNIQUE: Single view chest CLINICAL HISTORY: post thoracentesis FINDINGS: A single view of the chest was obtained. Heart is normal in size. There is right perihilar and right base airspace disease which is likely related to atelectasis or pneumonia with a small pleural effusion. There is no pneumothorax. IMPRESSION: Right perihilar and right base airspace disease likely related to atelectasis or pneumonia with small pleural effusion. Reviewed, Interpreted and Dictated by Samantha Mckeon MD Transcribed by Shahla Gregorio Authenticated and [facility]
[2024-05-07 17:03] LABS: POC Glucose,Bedside 132 (70-110)
[2024-05-07] MEDS: ATORVASTATIN 40MG TABLET 40 MG PO (21:57)
[2024-05-07 22:06] LABS: POC Glucose,Bedside 144 (70-110)
[2024-05-08] VITALS (8 sets, daily range): BP systolic 145–168; BP diastolic 62–77; PULSE 70–100; RESP 14–16; TEMP 36.7–36.9; O2SAT 93–98; BMI 34.7
[2024-05-08] MEDS: BUMETANIDE 10 MG in 0.9 % SODIUM CHLORIDE 60 ML 5 MG IV (04:13)
--- NOTE | 2024-05-08 05:18 | PC.NURSE ---
V/s, ox4, at bedside. RA tolerated. Thoracenthesis site clean, dry and intact. Drainage monitored. Plan of care ongoing.
[2024-05-08 05:58] LABS: POC Glucose,Bedside 113 (70-110)
--- NOTE | 2024-05-08 06:00 | XR_ITS ---
PROCEDURE INFORMATION: Exam: XR Chest Exam date and time: 05/08/2024 5:29 AM Age: 68 years old Clinical indication: Other: Eval pleural effusion TECHNIQUE: Imaging protocol: Radiologic exam of the chest. Views: 1 view. COMPARISON: CR XR CHEST PORTABLE 05/07/2024 3:54 PM FINDINGS: Lungs: Right basilar atelectasis.. No consolidation. Pleural spaces: Unremarkable. No pleural effusion. No pneumothorax. Stable elevation of the right hemidiaphragm. Heart/Mediastinum: Unremarkable. No cardiomegaly. Bones/joints: Unremarkable. IMPRESSION: Stable right basilar atelectasis. Elevated right hemidiaphragm unchanged.
[2024-05-08 06:34] LABS: Basophils % 0.9 % (0.1-2.0); Eosinophils % 1.2 % (0.1-12.0); Hematocrit 30.3 % (37.0-47.0); Hemoglobin 10.2 g/dL (12.2-16.2); Lymphocytes # 0.8 K/mm3 (0.7-4.5); Lymphocytes % 23.1 % (10-50); Mean Corpuscular HGB Conc 33.7 g/dL (31.8-35.4); Mean Corpuscular Hemoglobin 29.7 pg (27.0-31.2); Mean Corpuscular Volume 88.1 fl (81-99); Mean Platelet Volume 11.7 fl (7.4-10.4); Monocytes # 0.3 K/mm3 (0.1-1.0); Monocytes % 8.5 % (1.7-9.3); Neutrophils # 2.2 K/mm3 (1.8-7.8); Neutrophils % 66.3 % (37.0-80.0); Platelet Count 86 K/mm3 (142-424); Red Blood Count 3.44 M/mm3 (4.20-5.40); Red Cell Distribution Width 12.9 % (11.5-17.5); White Blood Count 3.3 K/mm3 (4.8-10.8)
[2024-05-08 06:39] LABS: Alanine Aminotransferase 16 U/L (12-78); Albumin Level 2.7 g/dl (3.5-5.0); Albumin/Globulin Ratio 1.2 (1.1-1.8); Alkaline Phosphatase 98 U/L (38-126); Anion Gap 2.9 mEq/L (5-15); Aspartate Amino Transferase 36 U/L (14-36); Bilirubin,Total 0.7 mg/dl (0.2-1.3); Blood Urea Nitrogen 25 mg/dl (7-17); Calcium 8.4 mg/dl (8.4-10.2); Carbon Dioxide 33 mmol/L (22.0-30.0); Chloride 103 mmol/L (98-107); Creatinine Clearance Estimated 60 mL/min (50-200); Estimated Glomerular Filt Rate 37 ml/min (>60); GFR (African American) 45 ML/MIN (>60); Globulin 2.3 g/dL (1.3-3.2); Glucose 108 mg/dl (74-100); Magnesium 1.4 mg/dl (1.6-2.3); Potassium 3.9 mmoL/L (3.5-5.1); Sodium 135 mmol/L (136-145)
[2024-05-08] MEDS: SPIRONOLACTONE 25MG TABLET 25 MG PO ×2 (08:57→16:50)
[2024-05-08] MEDS: ENOXAPARIN 40MG/0.4ML SYRINGE 40 MG SUBCUT (08:57)
[2024-05-08] MEDS: POTASSIUM CHLORIDE 10MEQ CAPSULE.ER 10 MEQ PO (08:57)
[2024-05-08] MEDS: IRBESARTAN 75MG TABLET 75 MG PO (08:57)
[2024-05-08 09:15] LABS: INR 1.09 (0.9-1.1); Prothrombin Time 12.1 seconds (10.1-12.5)
--- NOTE | 2024-05-08 09:45 | EXP.CARD.PN ---
Subjective Subjective Date: 05/08/24 Time: 09:45 Principal diagnosis: SOA, pleural effusion, pericardial effusion Interval history: 68-year-old white female lying in bed in no acute distress. States breathing has significantly improved after thoracentesis yesterday with 1085 mL of fluid removed. She has diuresed 3-1/2 L since yesterday. Exam Data for Last 24 hours Vital signs and Labs for Last 24 Hours: Temp Pulse Resp BP Pulse Ox O2 Del Method O2 Flow Rate 98.0 F 89 16 157/77 H 96 Room Air 4 05/08/24 08:00 05/08/24 08:00 05/08/24 08:00 05/08/24 08:00 05/08/24 08:00 05/08/24 08:00 05/07/24 13:00 Laboratory Results - last 24 hr 05/07/24 05:49: Lactate Dehydrogenase 263 L 05/07/24 11:54: POC Glucose 147 H 05/07/24 16:12: POC Glucose 132 H 05/07/24 21:58: POC Glucose 144 H 05/07/24 : Fluid Source Thoracentesis fluid, Fluid Volume 1085, Fluid Appearance Normal, Fluid RBC (Auto) < 10, Fld Tot Nucleated Cell 1413, Fld Polynuclear WBCs % 10, Fld Mononuclear WBCs % 90 05/08/24 05:30: WBC 3.3 L D, RBC 3.44 L, Hgb 10.2 L, Hct 30.3 L, MCV 88.1, MCH 29.7, MCHC 33.7, RDW 12.9, Plt Count 86 L, MPV 11.7 H, Neut % (Auto) 66.3, Lymph % (Auto) 23.1, [place] % (Auto) 8.5, Eos % (Auto) 1.2, Baso % (Auto) 0.9, Neut # (Auto) 2.2, Lymph # (Auto) 0.8, [place] # (Auto) 0.3, Eos # (Auto) 0.0, Baso # (Auto) 0.0, Sodium 135 L, Potassium 3.9, Chloride 103, Carbon Dioxide 33 H, Anion Gap 2.9 L, BUN 25 H, Creatinine 1.40 H, Estimated Creat Clear 60, Estimated GFR 37 L, Est GFR ( Amer) 45 L, Glucose 108 H, Calcium 8.4, Magnesium 1.4 L D, Total Bilirubin 0.7, AST 36, ALT 16, Alkaline Phosphatase 98, Total Protein 5.0 L, Albumin 2.7 L D, Globulin 2.3, Albumin/Globulin Ratio 1.2 05/08/24 05:46: POC Glucose 113 H 05/08/24 08:35: PT 12.1, INR 1.09 I & O for Last 24 hours: Intake & Output 05/05/24 05/06/24 05/07/24 05/08/24 11:59 11:59 11:59 11:59 Intake Total 270 / 270 818.083 / 818.083 Output Total 1625 / 1625 3030 / 3030 Balance -1355 / -1355 -2211.917 / -2211.917 Weight 216 lb 8 oz 216 lb 7.903 oz Microbiology Reports for the Last 24 Hours: Microbiology 05/07/24 Unknown Pleural Fluid Gram Stain - Final Constitutional Constitutional: no acute distress *Routine Respiratory Exam Comments: Improving breath sounds on the right side *Routine Cardiovascular Exam Cardiovascular: Present RRR; Absent murmur, gallop or rubs Progress Note: A&P Assessment and plan (1) Acute heart failure: Status: Acute (2) Pleural effusion, right: Status: Acute (3) Pericardial effusion without cardiac tamponade: Status: Acute (4) Coronary artery calcification seen on CT scan: Status: Acute (5) Diabetes mellitus: Status: Chronic (6) Hyperlipidemia: Status: Acute (7) Hypertension: Status: Acute (8) Obesity (BMI 30-39.9): Status: Chronic Assessment and Plan Assessment and Plan for All Diagnoses:: 1. Large right pleural effusion with hypoxemia -Supplemental oxygen in place -Pulmonary consulted with resultant thoracentesis removal of 1085 ml 2. Acute diastolic heart failure with 3+ lower extremity edema -Bumex drip and oral spironolactone, diuresing well -Echocardiogram shows normal LVEF -Troponins within normal limits -ARB started -Add Farxiga and monitor glucose 3. Diabetes mellitus -Defer to Dr. Hancock/Gretchen -Hemoglobin A1c 5.4 4. Hypertension -Patient has been started on irbesartan 5. Hyperlipidemia -Atorvastatin continued -LDL 62 6. Obesity -Prophylactic Lovenox 7. Acute kidney injury -Follow with diuresis -BUN 25, Cr 1.4 8. Coronary artery calcification on CT -will need workup as outpatient -continue statin 9. Pericardial effusion without tamponade -follow clinically and with PRN echo 10. Hypomagnesemia at 1.4 -replace 11. Pancytopenia -Hgb 11.1 on admission -plt 99K -WBC 3.3 Monitor renal functions while diuresis continues. Consider limited echo prior to discharge if symptoms worsen. Try adding Farxiga for both CHF and DM.
[2024-05-08] MEDS: DAPAGLIFLOZIN PROPANEDIOL 10 MG TABLET PO (10:45)
[2024-05-08] MEDS: MAGNESIUM SULFATE IN WATER 2 GM/50 ML PIGGYBACK IV (10:47)
[2024-05-08 11:01] LABS: POC Glucose,Bedside 120 (70-110)
--- NOTE | 2024-05-08 11:42 | US_ITS ---
FINAL REPORT TECHNIQUE: Sonographic images of the right upper quadrant were obtained. CLINICAL HISTORY: Suspected FERNANDO COMPARISON: None FINDINGS: PANCREAS: Not well-visualized. LIVER: Homogeneous. No focal hepatic lesion. No intrahepatic biliary ductal dilatation. The portal vein is patent. GALLBLADDER: The gallbladder has been surgically resected. COMMON DUCT: 3 mm. Normal for age. There may be a calcified stone in the common bile duct. RIGHT KIDNEY: The right kidney measures 10.6 cm. There is no hydronephrosis, mass, or stone. A right pleural effusion is present. IMPRESSION: Gallbladder surgically absent, and no biliary ductal dilatation is identified. There is a questionable hyperechoic focus that may represent a nonobstructing retained gallbladder stone. Would consider MRCP for further evaluation if clinically indicated. K right pleural effusion remains present. Reviewed, Interpreted and Dictated by Samantha Mckeon MD Transcribed by Minerva Santacruz Authenticated and [facility]
--- NOTE | 2024-05-08 12:21 | EXP.PULM.PN ---
Subjective *Date: 05/08/24 *Time: 15:48 Interval history: No acute respiratory vents overnight. Patient admits significant improvement in her respiratory symptoms. Pulmonology Exam Inpatient Vital signs and Labs for Last 24 Hours: Temp Pulse Resp BP Pulse Ox O2 Del Method O2 Flow Rate 98.0 F 89 16 157/77 H 96 Room Air 4 05/08/24 08:00 05/08/24 08:00 05/08/24 08:00 05/08/24 08:00 05/08/24 08:00 05/08/24 11:00 05/07/24 13:00 Laboratory Results - last 24 hr 05/07/24 16:12: POC Glucose 132 H 05/07/24 21:58: POC Glucose 144 H 05/07/24 : Fluid Source Thoracentesis fluid, Fluid Volume 1085, Fluid Appearance Normal, Fluid RBC (Auto) < 10, Fld Tot Nucleated Cell 1413, Fld Polynuclear WBCs % 10, Fld Mononuclear WBCs % 90 05/08/24 05:30: WBC 3.3 L D, RBC 3.44 L, Hgb 10.2 L, Hct 30.3 L, MCV 88.1, MCH 29.7, MCHC 33.7, RDW 12.9, Plt Count 86 L, MPV 11.7 H, Neut % (Auto) 66.3, Lymph % (Auto) 23.1, [place] % (Auto) 8.5, Eos % (Auto) 1.2, Baso % (Auto) 0.9, Neut # (Auto) 2.2, Lymph # (Auto) 0.8, [place] # (Auto) 0.3, Eos # (Auto) 0.0, Baso # (Auto) 0.0, Sodium 135 L, Potassium 3.9, Chloride 103, Carbon Dioxide 33 H, Anion Gap 2.9 L, BUN 25 H, Creatinine 1.40 H, Estimated Creat Clear 60, Estimated GFR 37 L, Est GFR ( Amer) 45 L, Glucose 108 H, Calcium 8.4, Magnesium 1.4 L D, Total Bilirubin 0.7, AST 36, ALT 16, Alkaline Phosphatase 98, Total Protein 5.0 L, Albumin 2.7 L D, Globulin 2.3, Albumin/Globulin Ratio 1.2 05/08/24 05:46: POC Glucose 113 H 05/08/24 08:35: PT 12.1, INR 1.09 05/08/24 10:53: POC Glucose 120 H Temp Pulse Resp BP Pulse Ox O2 Del Method O2 Flow Rate 98.0 F 86 20 163/72 H 97 Nasal Cannula 4 05/07/24 08:00 05/07/24 08:00 05/07/24 08:00 05/07/24 08:00 05/07/24 08:00 05/07/24 09:00 05/07/24 09:00 Laboratory Results - last 24 hr 05/06/24 13:45: Troponin I < 0.01, NT-Pro-B Natriuret Pep 1610 H 05/06/24 13:57: SARS-CoV-2 (PCR) Not detected, Influenza A Untype (PCR) Not detected, Influenza Type B (PCR) Not detected 05/06/24 15:26: POC Glucose 201 H 05/06/24 16:20: Troponin I < 0.01 05/06/24 19:02: Sodium 133 L, Potassium 4.4, Chloride 102, Carbon Dioxide 29, Anion Gap 6.4, BUN 24 H, Creatinine 1.20 H, Estimated Creat Clear 71, Estimated GFR 45 L, Est GFR ( Amer) 54 L, Glucose 192 H, Calcium 8.3 L, Troponin I 0.02 05/06/24 20:46: POC Glucose 193 H 05/07/24 05:22: POC Glucose 125 H 05/07/24 05:49: WBC 5.7, RBC 3.75 L, Hgb 11.1 L, Hct 33.2 L, MCV 88.5, MCH 29.6, MCHC 33.4, RDW 12.7, Plt Count 99 L, MPV 11.5 H, Neut % (Auto) 72.2, Lymph % (Auto) 18.1, [place] % (Auto) 8.3, Eos % (Auto) 0.5, Baso % (Auto) 0.7, Neut # (Auto) 4.1, Lymph # (Auto) 1.0, [place] # (Auto) 0.5, Eos # (Auto) 0.0, Baso # (Auto) 0.0, Sodium 137, Potassium 4.1, Chloride 104, Carbon Dioxide 30, Anion Gap 7.1, BUN 23 H, Creatinine 1.20 H, Estimated Creat Clear 70, Estimated GFR 45 L, Est GFR ( Amer) 54 L, Glucose 127 H D, Hemoglobin A1c 5.4, Calcium 9.3, Magnesium 1.6, Total Bilirubin 0.7, AST 42 H, ALT 19, Alkaline Phosphatase 117, Total Protein 5.7 L, Albumin 3.2 L, Globulin 2.5, Albumin/Globulin Ratio 1.3, Triglycerides 72, Cholesterol 156, LDL Cholesterol Direct 62.50 L, VLDL Cholesterol 14, HDL Cholesterol 57, Cholesterol/HDL Ratio 2.7, TSH 2.69 I & O for Labs for Last 24 Hours: Intake & Output 05/05/24 05/06/24 05/07/24 05/08/24 23:59 23:59 23:59 23:59 Intake Total 270 / 270 480 / 480 338.083 / 338.083 Output Total 500 / 900 2805 / 3405 1350 / 1350 Balance -230 / -630 -2325 / -2925 -1011.917 / -1011.917 Weight 220 lb 5 oz 216 lb 7.903 oz 216 lb 7.903 oz Intake & Output 05/04/24 05/05/24 05/06/24 05/07/24 23:59 23:59 23:59 23:59 Intake Total 270 / 270 0 / 0 Output Total 500 / 900 925 / 925 Balance -230 / -630 -925 / -925 Weight 220 lb 5 oz 216 lb 8 oz Microbiology Reports for the Last 24 Hours: Microbiology 05/07/24 Unknown Pleural Fluid Gram Stain - Final Constitutional: Present moderate distress Head: Present normocephalic and atraumatic ENT: Present normal exam, normal oropharynx and mucous membranes moist Neck: Present normal inspection and full ROM Respiratory: Present able to speak in complete sentences; Absent prolonged expiratory phase, respiratory distress, rhonchi, wheezes or diminished air movement Cardiac: Present S1/S2, Tachycardia and radial pulses present GI: Present soft and distention; Absent tenderness or guarding Rectal (female): Present deferred (female): Present deferred Skin: Present intact; Absent cyanosis or jaundice Neuro: Present alert, awake and oriented x 3 Extremities: Present normal inspection and edema; Absent clubbing or cyanosis Psychiatric: Present normal affect and cooperative Assessment and Plan *Assessment and plan (1) Acute respiratory failure with hypoxia: Status: Acute Category: Medical Code(s): J96.01 - Acute respiratory failure with hypoxia (2) Pleural effusion, bilateral: Status: Acute Category: Medical Code(s): J90 - Pleural effusion, not elsewhere classified Plan Ms. Malik is a 68-year-old female history of diabetes mellitus hypertension presented to the ER with worsening respiratory distress and pulmonary was called for further evaluation and management. Patient also admits worsening swelling in her lower extremities and weight gain. Patient admits she is a never smoker. Not using any oxygen supplementation or inhalers at baseline CT chest upon admission with large right pleural effusion along with adjacent atelectasis. Small left pleural effusion noted. No other airspace disease/consolidative changes noted Afebrile. Hemodynamically stable. No evidence of leukocytosis. Flu and COVID-19 PCR panel negative. Interval update: No acute respiratory vents overnight. Improving oxygen requirements, weaned to room air Chest x-ray from this morning near complete resolution of the noted right pleural effusion. Elevated right hemidiaphragm noted. Continue to show right lower lobe atelectasis. Chest tube removed today. Total of 750 output since yesterday, pleural fluid studies transudative effusion. Plan: Incentive spirometry and flutter valve Follow with final pleural fluid studies # Thank you for involving pulmonary in this patient care. Will continue to follow.
[2024-05-08 14:11] LABS: Albumin, Body Fluid 1.2 g/dL (Not Estab.); Glucose, Body Fluid 155 mg/dL (.); LD, Body Fluid 156 IU/L (.)
[2024-05-08 17:43] LABS: POC Glucose,Bedside 137 (70-110)
--- NOTE | 2024-05-08 17:49 | PC.NURSE ---
Addendum entered by Dinorah Goldsmith RN 05/08/24 17:59: unable to collect sputum from patient. Original Note: patient is a/ox4 remains on RA, tolerating well. chest tube removed today per MD. no c/o pain this shift. Bumex drip infusing. call light within reach, family at bedside.
[2024-05-08 20:45] LABS: POC Glucose,Bedside 153 (70-110)
--- NOTE | 2024-05-08 21:15 | EXP.PN ---
Subjective *Date: 05/08/24 *Time: 21:15 Interval history: Patient doing much better today. Pulmonology remove chest tube, patient on room air with appropriate saturations. Creatinine bumped, will transition IV Bumex drip to p.o. Bumex as edema at this time seems to be more lymphedema rather than volume overload. Will consult wound care to establish care with lymphedema clinic. Exam Data for Last 24 hours Vital signs and Labs for Last 24 Hours: Temp Pulse Resp BP Pulse Ox O2 Del Method O2 Flow Rate 98.5 F 80 16 150/69 H 97 Room Air 4 05/08/24 19:35 05/08/24 20:00 05/08/24 19:35 05/08/24 19:35 05/08/24 19:35 05/08/24 19:35 05/07/24 13:00 Laboratory Results - last 24 hr 05/07/24 21:58: POC Glucose 144 H 05/07/24 : Fluid Glucose 155, Fluid Albumin 1.2, Fluid LDH 156 05/08/24 05:30: WBC 3.3 L D, RBC 3.44 L, Hgb 10.2 L, Hct 30.3 L, MCV 88.1, MCH 29.7, MCHC 33.7, RDW 12.9, Plt Count 86 L, MPV 11.7 H, Neut % (Auto) 66.3, Lymph % (Auto) 23.1, [place] % (Auto) 8.5, Eos % (Auto) 1.2, Baso % (Auto) 0.9, Neut # (Auto) 2.2, Lymph # (Auto) 0.8, [place] # (Auto) 0.3, Eos # (Auto) 0.0, Baso # (Auto) 0.0, Sodium 135 L, Potassium 3.9, Chloride 103, Carbon Dioxide 33 H, Anion Gap 2.9 L, BUN 25 H, Creatinine 1.40 H, Estimated Creat Clear 60, Estimated GFR 37 L, Est GFR ( Amer) 45 L, Glucose 108 H, Calcium 8.4, Magnesium 1.4 L D, Total Bilirubin 0.7, AST 36, ALT 16, Alkaline Phosphatase 98, Total Protein 5.0 L, Albumin 2.7 L D, Globulin 2.3, Albumin/Globulin Ratio 1.2 05/08/24 05:46: POC Glucose 113 H 05/08/24 08:35: PT 12.1, INR 1.09 05/08/24 10:53: POC Glucose 120 H 05/08/24 16:51: POC Glucose 137 H 05/08/24 20:21: POC Glucose 153 H I & O for Last 24 hours: Intake & Output 05/05/24 05/06/24 05/07/24 05/08/24 23:59 23:59 23:59 23:59 Intake Total 270 / 270 480 / 480 938.083 / 938.083 Output Total 500 / 900 2805 / 3405 2350 / 2350 Balance -230 / -630 -2325 / -2925 -1411.917 / -1411.917 Weight 99.932 kg 98.2 kg 98.2 kg Microbiology Reports for the Last 24 Hours: Microbiology 05/07/24 Unknown Pleural Fluid Gram Stain - Final Constitutional Constitutional: no acute distress *Routine HEENT Exam Head: Present normocephalic Eye: Present EOMI and PERRL ENT: Present mucous membranes moist *Routine Neck Exam Neck: Present supple; Absent lymphadenopathy *Routine Respiratory Exam Respiratory: Present CTA bilaterally *Routine Cardiovascular Exam Cardiovascular: Present RRR *Routine Abdominal Exam Abdominal: Present soft and normoactive bowel sounds; Absent tenderness *Routine Extremities Exam Extremities: Present edema; Absent cyanosis or clubbing *Routine Skin Exam Skin: Present warm; Absent rash *Routine Neurological Exam Neurological: Present alert and oriented X3 Assessment and Plan *Assessment and plan (1) Acute heart failure: Status: Acute Qualifiers: Heart failure type: unspecified Qualified Code(s): I50.9 - Heart failure, unspecified Category: Medical Code(s): I50.9 - Heart failure, unspecified (2) Diabetes mellitus: Status: Chronic Qualifiers: Diabetes mellitus type: type 2 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 Diabetes mellitus complication status: without complication Qualified Code(s): E11.9 - Type 2 diabetes mellitus without complications Category: Medical Code(s): E11.9 - Type 2 diabetes mellitus without complications (3) Hyperlipidemia: Status: Acute Qualifiers: Hyperlipidemia type: mixed hyperlipidemia Qualified Code(s): E78.2 - Mixed hyperlipidemia Category: Medical Code(s): E78.5 - Hyperlipidemia, unspecified (4) Hypertension: Status: Acute Qualifiers: Hypertension type: primary hypertension Qualified Code(s): I10 - Essential (primary) hypertension Category: Medical Code(s): I10 - Essential (primary) hypertension (5) Obesity (BMI 30-39.9): Status: Chronic Category: Medical Code(s): E66.9 - Obesity, unspecified Plan Frances Reyes 68-year-old female admitted as transfer from [facility] due to acute CHF with development of effusion. Acute HFpEF Pleural effusion #Lymphedema - Echo obtained showing preserved EF, elevated RVSP. Consistent with HFpEF. Diuresed well with IV Bumex, approximately net -4 L output. ? Patient seems euvolemic this afternoon, on room air. Lower extremity edema seems to be lymphedema at this time. Will consult wound care to establish care. ? Transitioned IV Bumex drip to oral Bumex 1 mg daily, creatinine bumped today. Pending further cardiology recommendations in regards to dosing. - Continue spironolactone 25 mg twice daily - Following, removed right-sided chest tube. On room air. Saturating appropriately. Will follow-up on pleural studies. - Serial troponins were negative. A1c obtained at 5.4. Full code Cardiac diet Lovenox 40 mg subcu daily Surrogate decision maker is her
[2024-05-08] MEDS: ATORVASTATIN 40MG TABLET 40 MG PO (21:58)
[2024-05-08 22:06] LABS: Chloride 100 mmol/L (98-107)
[2024-05-08 22:07] LABS: Sodium 135 mmol/L (136-145)
[2024-05-08 22:10] LABS: Blood Urea Nitrogen 27 mg/dl (7-17); Calcium 8.2 mg/dl (8.4-10.2); Carbon Dioxide 36 mmol/L (22.0-30.0); Creatinine Clearance Estimated 52 mL/min (50-200); Estimated Glomerular Filt Rate 32 ml/min (>60); GFR (African American) 39 ML/MIN (>60); Glucose 130 mg/dl (74-100)
[2024-05-09] VITALS: BP 159/82; PULSE 87; PULSE 90; RESP 14; TEMP 36.9; O2SAT 93
[2024-05-09 04:00] VITALS: BP 160/69; PULSE 70; PULSE 80; RESP 16; TEMP 36.5; O2SAT 94; BMI 32.1
--- NOTE | 2024-05-09 04:19 | PC.NURSE ---
V/s, Ox4, RA. pt denies sob and pain. No acute events to report. Plan of care ongoing.
[2024-05-09 06:15] LABS: POC Glucose,Bedside 108 (70-110)
[2024-05-09 07:52] VITALS: BP 163/83; PULSE 79; RESP 16; TEMP 36.8; O2SAT 98
[2024-05-09 08:00] VITALS: PULSE 80
[2024-05-09] MEDS: BUMETANIDE 1 MG TABLET PO (08:53)
[2024-05-09] MEDS: IRBESARTAN 75MG TABLET 75 MG PO (08:53)
[2024-05-09] MEDS: SPIRONOLACTONE 25MG TABLET 25 MG PO (08:53)
[2024-05-09] MEDS: POTASSIUM CHLORIDE 10MEQ CAPSULE.ER 10 MEQ PO (08:53)
[2024-05-09] MEDS: DAPAGLIFLOZIN PROPANEDIOL 10 MG TABLET PO (08:53)
[2024-05-09 09:00] LABS: Basophils % 0.6 % (0.1-2.0); Eosinophils % 1.3 % (0.1-12.0); Hematocrit 31.8 % (37.0-47.0); Hemoglobin 10.8 g/dL (12.2-16.2); Lymphocytes # 0.9 K/mm3 (0.7-4.5); Mean Corpuscular Volume 88.3 fl (81-99); Mean Platelet Volume 11.1 fl (7.4-10.4); Monocytes # 0.4 K/mm3 (0.1-1.0); Monocytes % 11.3 % (1.7-9.3); Neutrophils # 1.9 K/mm3 (1.8-7.8); Neutrophils % 58.5 % (37.0-80.0); Platelet Count 86 K/mm3 (142-424); Red Cell Distribution Width 12.8 % (11.5-17.5); White Blood Count 3.2 K/mm3 (4.8-10.8)
[2024-05-09 09:16] LABS: Alanine Aminotransferase 22 U/L (12-78); Albumin Level 2.8 g/dl (3.5-5.0); Albumin/Globulin Ratio 1.2 (1.1-1.8); Alkaline Phosphatase 105 U/L (38-126); Anion Gap 6.8 mEq/L (5-15); Aspartate Amino Transferase 42 U/L (14-36); Bilirubin,Total 0.7 mg/dl (0.2-1.3); Blood Urea Nitrogen 25 mg/dl (7-17); Calcium 8.7 mg/dl (8.4-10.2); Carbon Dioxide 35 mmol/L (22.0-30.0); Chloride 101 mmol/L (98-107); Creatinine Clearance Estimated 51 mL/min (50-200); Estimated Glomerular Filt Rate 35 ml/min (>60); GFR (African American) 42 ML/MIN (>60); Globulin 2.4 g/dL (1.3-3.2); Glucose 147 mg/dl (74-100); Potassium 3.8 mmoL/L (3.5-5.1); Sodium 139 mmol/L (136-145); Total Protein,Serum 5.2 g/dl (6.3-8.2)
[2024-05-09 09:48] LABS: Magnesium 1.8 mg/dl (1.6-2.3)
--- NOTE | 2024-05-09 10:42 | EXP.CARD.PN ---
Subjective Subjective Date: 05/09/24 Time: 10:42 Principal diagnosis: SOA, pleural effusion, pericardial effusion Interval history: 68 yo WF in chair in NAD. Feeling much better and is ready to go home. Results of echo reviewed. Recommend repeating in 2-4 wks to see if pericardial effusion, RV dilation has improved with thoracentesis and diuresis. Technically difficult study due to poor acoustic windows. Normal biventricular systolic function. Grade 2 diastolic dysfunction. Mild RV dilation. Biatrial dilation. Systolic anterior motion (MAR[place]) of the MV leaflets is present, without septal contact. Mild MR, mild TR. Elevated RVSP is 45-50 mmHg. Small sized, circumferential pericardial effusion present. The largest pocket measures 0.5 cm in diastole. No echo indications of tamponade. Pleural effusion and ascites are also present. Electronically signed by : Rima Sellers MD 05/07/2024 12:21:14 Exam Data for Last 24 hours Vital signs and Labs for Last 24 Hours: Temp Pulse Resp BP Pulse Ox O2 Del Method O2 Flow Rate 98.2 F 80 16 163/83 H 98 Room Air 4 05/09/24 07:52 05/09/24 08:00 05/09/24 07:52 05/09/24 07:52 05/09/24 07:52 05/09/24 08:00 05/07/24 13:00 Laboratory Results - last 24 hr 05/07/24 : Fluid Glucose 155, Fluid Albumin 1.2, Fluid LDH 156 05/08/24 10:53: POC Glucose 120 H 05/08/24 16:51: POC Glucose 137 H 05/08/24 20:21: POC Glucose 153 H 05/08/24 21:55: Sodium 135 L, Potassium 4.0, Chloride 100, Carbon Dioxide 36 H, Anion Gap 3.0 L, BUN 27 H, Creatinine 1.60 H, Estimated Creat Clear 52, Estimated GFR 32 L, Est GFR ( Amer) 39 L, Glucose 130 H D, Calcium 8.2 L 05/09/24 06:08: POC Glucose 108 05/09/24 08:40: WBC 3.2 L, RBC 3.60 L, Hgb 10.8 L, Hct 31.8 L, MCV 88.3, MCH 30.0, MCHC 34.0, RDW 12.8, Plt Count 86 L, MPV 11.1 H, Neut % (Auto) 58.5, Lymph % (Auto) 28.0, [place] % (Auto) 11.3 H, Eos % (Auto) 1.3, Baso % (Auto) 0.6, Neut # (Auto) 1.9, Lymph # (Auto) 0.9, [place] # (Auto) 0.4, Eos # (Auto) 0.0, Baso # (Auto) 0.0, Sodium 139, Potassium 3.8, Chloride 101, Carbon Dioxide 35 H, Anion Gap 6.8, BUN 25 H, Creatinine 1.50 H, Estimated Creat Clear 51, Estimated GFR 35 L, Est GFR ( Amer) 42 L, Glucose 147 H, Calcium 8.7, Magnesium 1.8 D, Total Bilirubin 0.7, AST 42 H, ALT 22 D, Alkaline Phosphatase 105, Total Protein 5.2 L, Albumin 2.8 L, Globulin 2.4, Albumin/Globulin Ratio 1.2 I & O for Last 24 hours: Intake & Output 05/06/24 05/07/24 05/08/24 05/09/24 11:59 11:59 11:59 11:59 Intake Total 270 / 270 818.083 / 673.184 4397 / 1080 Output Total 1625 / 1625 3030 / 3030 5000 / 5000 Balance -1355 / -1355 -2211.917 / -2211.917 -3920 / -3920 Weight 216 lb 8 oz 216 lb 7.903 oz 199 lb 8 oz Microbiology Reports for the Last 24 Hours: Microbiology 05/07/24 Unknown Pleural Fluid Gram Stain - Final 05/07/24 Unknown Pleural Fluid Body Fluid Culture - Preliminary NO GROWTH AFTER 24 HOURS Constitutional Constitutional: no acute distress *Routine Respiratory Exam Respiratory: Present CTA bilaterally *Routine Cardiovascular Exam Cardiovascular: Present RRR Progress Note: A&P Assessment and plan (1) Acute heart failure: Status: Acute (2) Diabetes mellitus: Status: Chronic (3) Hyperlipidemia: Status: Acute (4) Hypertension: Status: Acute (5) Obesity (BMI 30-39.9): Status: Chronic (6) Pleural effusion, right: Status: Acute (7) Pericardial effusion without cardiac tamponade: Status: Acute (8) Coronary artery calcification seen on CT scan: Status: Acute Assessment and Plan Assessment and Plan for All Diagnoses:: 1. Large right pleural effusion with hypoxemia, s/p thoracentesis -now on room air -pleural drain removed yesterday (total fluid removed about [id number]) -gram stain negative, remaining results pending 2. Acute diastolic heart failure with 3+ lower extremity edema -Bumex and oral spironolactone, diuresing well -Echocardiogram shows normal LVEF -Troponins within normal limits -ARB started -Add Farxiga and monitor glucose 3. Diabetes mellitus -Defer to Dr. Hancock/Gretchen -Hemoglobin A1c 5.4 4. Hypertension -Patient has been started on irbesartan 5. Hyperlipidemia -Atorvastatin continued -LDL 62 6. Obesity -Prophylactic Lovenox 7. Acute kidney injury -Follow with diuresis -BUN 25, Cr 1.5 8. Coronary artery calcification on CT -will need workup as outpatient -continue statin 9. Pericardial effusion without tamponade -follow clinically and with PRN echo 10. Hypomagnesemia at 1.4 -replace 11. Pancytopenia -Hgb 11.1 on admission -plt 99K -WBC 3.3 Clinically stable from cardiac standpoint for discharge. Follow up in 2 wks with echo prior to visit to follow up on RV size, pericardial effusion and mitral valve Home med recs: Atorvastatin 40 mg daily Spironolactone 25 mg twice daily Bumex 1 mg daily Avapro 75 mg daily Farxiga 10 mg daily Stop triamterene and potassium
--- NOTE | 2024-05-09 10:59 | HMH.PTWOUND ---
Rehab Inpt Wound Evaluation Rehab IP Wound Evaluation Start: 05/08/24 21:21 Freq: ONCE Status: Active Protocol: Document 05/09/24 10:53 ROSEMARY (Rec: 05/09/24 10:59 ROSEMARY [id number]) Rehab PT Wound Assessment Subjective Subjective 68-year-old female with history of diabetes and hypertension who originally presented to [facility] with shortness of breath that is worsened over the past week. States she has been having increased swelling in her legs over the past few months. Increased dyspnea with exertion. Recently saw cardiology in [place] and had an echo that showed a leaky valve but she does not know any further results. She has had weight gain of at least 20 pounds in the past few months. Denies nausea, vomiting, diarrhea. Feels like her belly has been a little bit more bloated. Normally has stable blood pressure and stable on room air. On arrival to the hospital at [facility] her sats were in the 70s. Necessitated supplemental oxygen. Kidney function slightly abnormal with creatinine of 1.5. Reportedly her diabetes is well-controlled with normal A1c and medications have been discontinued over the past year. Troponin with no delta on the labs. Chest x-ray was obtained showing large effusion on the right side. Medicine was consulted for admission and transfer for cardiology evaluation and workup. Pt reports she lives with , 2-3 DOMINGO the home , and she is generally independent with all mobility without an AD. She reports increased B LE edema for ~ 3 mos with insidious onset of symptoms. She presents with 3+ pitting edema to L foot and 2 + pitting edema throughout the rest of B lower legs. MILD fibrotic edema noted to B lower legs from the knees distally. She also reports she works from home and remains seated throughout most of the day. Plan/Recommendation Comment No current wounds noted to B LE. Edema has pitting and fibrotic component which is likely worsened by increasingly sedentary lifestyle. Pt wound benefit from outpatient lymphedema treatment and home compression garment use. No current acute inpatient therapy needs at this time. Eval Complexity Eval Charge Codes 65367 - High Complexity PHYSICIAN CERTIFICATION: I certify the specified therapy services for Frances Reyes are required, authorized, and reviewed every 30 days.
[2024-05-09 11:02] LABS: POC Glucose,Bedside 121 (70-110)
[2024-05-09 12:00] VITALS: BP 167/76; PULSE 70; PULSE 78; RESP 16; TEMP 36.6; O2SAT 99
--- NOTE | 2024-05-09 12:13 | EXP.DC.SUM ---
General Admission date:: 05/06/24 HPI HPI HPI: Ms. Reyes is a 68-year-old female with history of diabetes and hypertension who originally presented to [facility] with shortness of breath that is worsened over the past week. States she has been having increased swelling in her legs over the past few months. Increased dyspnea with exertion. Recently saw cardiology in [place] and had an echo that showed a leaky valve but she does not know any further results. She has had weight gain of at least 20 pounds in the past few months. Denies nausea, vomiting, diarrhea. Feels like her belly has been a little bit more bloated. Normally has stable blood pressure and stable on room air. On arrival to the hospital at [place] her sats were in the 70s. Necessitated supplemental oxygen. Kidney function slightly abnormal with creatinine of 1.5. Reportedly her diabetes is well-controlled with normal A1c and medications have been discontinued over the past year. Troponin with no delta on the labs. Chest x-ray was obtained showing large effusion on the right side. Medicine was consulted for admission and transfer for cardiology evaluation and workup. On arrival to our facility. Patient sats are in the mid 90s on 4 L oxygen. She has 3+ edema in her legs all the way up to her lower abdomen. She is alert and oriented x 4. Remains mildly hypertensive. Received 10 mg of hydralazine and 5 mg of Lopressor at [facility] along with 40 mg IV once of Lasix. Has voided once but unknown exact volume. Denies chest pain at this time. Currently has Nitropaste on her chest. EKG obtained on arrival showing low voltage sinus rhythm. Hospital Course Hospital Course Hospital Course: Frances Reyes is a 68-year-old female admitted as transfer from [facility] due to new acute CHF with development of right-sided pleural effusion. #Acute HFpEF, new diagnosis #Right pleural effusion #Lymphedema #Hypertension - ECHO obtained showing preserved EF, elevated RVSP. Consistent with HFpEF. Diuresed well with IV Bumex drip, approximately net -7.2 L output. ? Pulmonology consulted for right-sided pleural effusion, s/p chest tube with resolution of effusion. Chest tube removed. ? Lower extremity edema seems to be early lymphedema as well at this time. Referred to wound care for further management of lymphedema. ? Cardiology consulted, transitioned to Bumex 1 mg, spironolactone 25 mg twice daily, Farxiga 10 mg, irbesartan 75 mg. - Serial troponins were negative. A1c obtained at 5.4. - Will follow-up with cardiology and pulmonary within 2 weeks. Exam Data for Last 24 hours Vital signs and Labs for Last 24 Hours: Temp Pulse Resp BP Pulse Ox O2 Del Method O2 Flow Rate 98.2 F 80 16 163/83 H 98 Room Air 4 05/09/24 07:52 05/09/24 08:00 05/09/24 07:52 05/09/24 07:52 05/09/24 07:52 05/09/24 08:00 05/07/24 13:00 Laboratory Results - last 24 hr 05/07/24 : Fluid Glucose 155, Fluid Albumin 1.2, Fluid LDH 156 05/08/24 16:51: POC Glucose 137 H 05/08/24 20:21: POC Glucose 153 H 05/08/24 21:55: Sodium 135 L, Potassium 4.0, Chloride 100, Carbon Dioxide 36 H, Anion Gap 3.0 L, BUN 27 H, Creatinine 1.60 H, Estimated Creat Clear 52, Estimated GFR 32 L, Est GFR ( Amer) 39 L, Glucose 130 H D, Calcium 8.2 L 05/09/24 06:08: POC Glucose 108 05/09/24 08:40: WBC 3.2 L, RBC 3.60 L, Hgb 10.8 L, Hct 31.8 L, MCV 88.3, MCH 30.0, MCHC 34.0, RDW 12.8, Plt Count 86 L, MPV 11.1 H, Neut % (Auto) 58.5, Lymph % (Auto) 28.0, [place] % (Auto) 11.3 H, Eos % (Auto) 1.3, Baso % (Auto) 0.6, Neut # (Auto) 1.9, Lymph # (Auto) 0.9, [place] # (Auto) 0.4, Eos # (Auto) 0.0, Baso # (Auto) 0.0, Sodium 139, Potassium 3.8, Chloride 101, Carbon Dioxide 35 H, Anion Gap 6.8, BUN 25 H, Creatinine 1.50 H, Estimated Creat Clear 51, Estimated GFR 35 L, Est GFR ( Amer) 42 L, Glucose 147 H, Calcium 8.7, Magnesium 1.8 D, Total Bilirubin 0.7, AST 42 H, ALT 22 D, Alkaline Phosphatase 105, Total Protein 5.2 L, Albumin 2.8 L, Globulin 2.4, Albumin/Globulin Ratio 1.2 05/09/24 10:54: POC Glucose 121 H I & O for Last 24 hours: Intake & Output 05/06/24 05/07/24 05/08/24 05/09/24 23:59 23:59 23:59 23:59 Intake Total 270 / 270 480 / 480 938.083 / 1058.083 480 / 480 Output Total 500 / 900 2805 / 3405 4350 / 5350 1999 Balance -230 / -630 -2325 / -2925 -3411.917 / -4291.917 -1520 / -1520 Weight 99.932 kg 98.2 kg 98.2 kg 90.492 kg Microbiology Reports for the Last 24 Hours: Microbiology 05/07/24 Unknown Pleural Fluid Gram Stain - Final 05/07/24 Unknown Pleural Fluid Body Fluid Culture - Preliminary NO GROWTH AFTER 24 HOURS Constitutional Constitutional: no acute distress and obese *Routine HEENT Exam Head: Present normocephalic Eye: Present EOMI and PERRL ENT: Present mucous membranes moist *Routine Neck Exam Neck: Present supple; Absent lymphadenopathy *Routine Respiratory Exam Respiratory: Present CTA bilaterally *Routine Cardiovascular Exam Cardiovascular: Present RRR *Routine Abdominal Exam Abdominal: Present soft and normoactive bowel sounds; Absent tenderness *Routine Extremities Exam Extremities: Present edema; Absent cyanosis or clubbing *Routine Skin Exam Skin: Present warm; Absent rash *Routine Neurological Exam Neurological: Present alert and oriented X3 Results Data Completed and Pending Labs on day of discharge: Labs from last 24 hours 05/09/24 05/09/24 05/09/24 10:54 08:40 06:08 WBC 3.2 L RBC 3.60 L Hgb 10.8 L Hct 31.8 L MCV 88.3 MCH 30.0 MCHC 34.0 RDW 12.8 Plt Count 86 L MPV 11.1 H Neut % (Auto) 58.5 Lymph % (Auto) 28.0 [place] % (Auto) 11.3 H Eos % (Auto) 1.3 Baso % (Auto) 0.6 Neut # (Auto) 1.9 Lymph # (Auto) 0.9 [place] # (Auto) 0.4 Eos # (Auto) 0.0 Baso # (Auto) 0.0 Sodium 139 Potassium 3.8 Chloride 101 Carbon Dioxide 35 H Anion Gap 6.8 BUN 25 H Creatinine 1.50 H Estimated Creat Clear 51 Estimated GFR 35 L Est GFR ( Amer) 42 L Glucose 147 H POC Glucose 121 H 108 Calcium 8.7 Magnesium 1.8 D Total Bilirubin 0.7 AST 42 H ALT 22 D Alkaline Phosphatase 105 Total Protein 5.2 L Albumin 2.8 L Globulin 2.4 Albumin/Globulin Ratio 1.2 Fluid Glucose Fluid Albumin Fluid LDH 05/08/24 05/08/24 05/08/24 21:55 20:21 16:51 WBC RBC Hgb Hct MCV MCH MCHC RDW Plt Count MPV Neut % (Auto) Lymph % (Auto) [place] % (Auto) Eos % (Auto) Baso % (Auto) Neut # (Auto) Lymph # (Auto) [place] # (Auto) Eos # (Auto) Baso # (Auto) Sodium 135 L Potassium 4.0 Chloride 100 Carbon Dioxide 36 H Anion Gap 3.0 L BUN 27 H Creatinine 1.60 H Estimated Creat Clear 52 Estimated GFR 32 L Est GFR ( Amer) 39 L Glucose 130 H D POC Glucose 153 H 137 H Calcium 8.2 L Magnesium Total Bilirubin AST ALT Alkaline Phosphatase Total Protein Albumin Globulin Albumin/Globulin Ratio Fluid Glucose Fluid Albumin Fluid LDH 05/07/24 Unknown WBC RBC Hgb Hct MCV MCH MCHC RDW Plt Count MPV Neut % (Auto) Lymph % (Auto) [place] % (Auto) Eos % (Auto) Baso % (Auto) Neut # (Auto) Lymph # (Auto) [place] # (Auto) Eos # (Auto) Baso # (Auto) Sodium Potassium Chloride Carbon Dioxide Anion Gap BUN Creatinine Estimated Creat Clear Estimated GFR Est GFR ( Amer) Glucose POC Glucose Calcium Magnesium Total Bilirubin AST ALT Alkaline Phosphatase Total Protein Albumin Globulin Albumin/Globulin Ratio Fluid Glucose 155 Fluid Albumin 1.2 Fluid LDH 156 Preliminary micro results at discharge 05/07/24 Unknown Body Fluid Culture - Preliminary Pleural Fluid NO GROWTH AFTER 24 HOURS DS: Diagnosis Discharge Diagnosis (1) Acute heart failure: Status: Acute Code(s): I50.9 - Heart failure, unspecified Qualifiers: Heart failure type: unspecified Qualified Code(s): I50.9 - Heart failure, unspecified (2) Diabetes mellitus: Status: Chronic Code(s): E11.9 - Type 2 diabetes mellitus without complications Qualifiers: Diabetes mellitus complication status: without complication 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 use: without penitentiary use Diabetes mellitus type: type 2 Qualified Code(s): E11.9 - Type 2 diabetes mellitus without complications (3) Hyperlipidemia: Status: Acute Code(s): E78.5 - Hyperlipidemia, unspecified Qualifiers: Hyperlipidemia type: mixed hyperlipidemia Qualified Code(s): E78.2 - Mixed hyperlipidemia (4) Hypertension: Status: Acute Code(s): I10 - Essential (primary) hypertension Qualifiers: Hypertension type: primary hypertension Qualified Code(s): I10 - Essential (primary) hypertension (5) Obesity (BMI 30-39.9): Status: Chronic Code(s): E66.9 - Obesity, unspecified (6) Pleural effusion, right: Status: Acute Code(s): J90 - Pleural effusion, not elsewhere classified (7) Pericardial effusion without cardiac tamponade: Status: Acute Code(s): I31.39 - Other pericardial effusion (noninflammatory) (8) Coronary artery calcification seen on CT scan: Status: Acute Code(s): I25.10 - Atherosclerotic heart disease of [place] coronary artery without angina pectoris Meds Home Medications and Allergies Home Medications ?Medication ?Instructions ?Recorded ?Confirmed ?Type atorvastatin 40 mg tablet 40 mg PO HS 05/06/24 05/06/24 History bumetanide 1 mg tablet 1 mg PO DAILY 05/06/24 05/06/24 History dapagliflozin propanediol 10 mg 10 mg PO DAILY 30 days #30 tabs 05/09/24 Rx tablet (Farxiga) irbesartan 75 mg tablet 75 mg PO DAILY 30 days #30 tabs 05/09/24 Rx spironolactone 25 mg tablet 25 mg PO BIDL 30 days #60 tabs 05/09/24 Rx New Prescriptions to Start Prescriptions: dapagliflozin propanediol [Farxiga] Kel Godinez irbesartan Kel Godinez spironolactone Kel Godinez Allergies Allergy/AdvReac Type Severity Reaction Status Date / Time pentazocine (From [place]) Allergy Dizziness Verified 05/06/24 13:39 Discharge Plan Disposition Patient Disposition: Home, Self-Care Condition: Fair Discharge Order Discharge Orders: Discharge Order (Routine); Ordered 05/09/24 Ordered By: Kel Godinez Follow up Plan Follow up with: Prashanth Rocha PA [Physician Plasma Specialist] - 05/21/24 10:30 am Alexandre Arellano MD [Physician] - 06/20/24 1:00 pm Prescriptions/Medication Reconciliation: New spironolactone 25 mg Tablet 25 mg PO BIDL 30 Days Qty: 60 0RF dapagliflozin propanediol [Farxiga] 10 mg Tablet 10 mg PO DAILY 30 Days Qty: 30 0RF irbesartan 75 mg Tablet 75 mg PO DAILY 30 Days Qty: 30 0RF Continued atorvastatin 40 mg tablet 40 mg PO HS Patient Comments: TAKE 1 TABLET BY MOUTH EVERYDAY AT BEDTIME bumetanide 1 mg tablet 1 mg PO DAILY Patient Comments: TAKE 1 TABLET BY MOUTH EVERY DAY . TAKE 1 EXTRA TABLET IF WEIGHT GAIN OF 3 POUNDS IN 24 HOURS Discontinued potassium chloride 10 mEq tablet extended release 10 meq PO DAILY Patient Comments: TAKE 1 TABLET BY MOUTH TAKE DIRECTED. TAKE POTASSIUM ONLY WHEN TAKING BUMEX (BUMETANIDE) triamterene-hydrochlorothiazid 37.5-25 mg tablet 1 tab PO DAILY Patient Comments: TAKE 1 TABLET BY MOUTH EVERY DAY Other Ambulatory Orders: Rehab Eval, OP (Routine) Timeframe: 1 Month Facility: [facility] - Location: Physical Therapy Ordered By: Kel Godinez Problem Reconciliation Problems Reviewed?: Yes Patient Discharge Instructions Patient Instructions: Heart-Healthy Diet, DI for Thoracentesis, DI for Pleural Effusion Print Language: Bel[place]ian Providers Primary Care Provider: Catherine Morales Admit Provider: Jaziel Hancock Attending Provider: Jaziel Hancock
--- NOTE | 2024-05-10 15:18 | SW/DCPLANNER ---
Spoke with patient on the phone. Patient stated that she is doing great. Patient stated that she is aware of her upcoming appointments. Patient stated that she was able to get her medicine from clinic pharmacy. Patient stated that she got excellent care while she was here. She said everyone was great and the nurse sure did answer her questions. Patient stated that she has no concerns or questions at this time. Cheryle Lima
== END 2024-05-09 14:37 | disposition home or self-care (01) | DRG 291 ==
PROVIDERS: Internal Medicine Pulmonary Disease; Student in an Organized Health Care Education/Training Program; Admitting Provider Internal Medicine Adolescent Medicine; PCP Nurse Practitioner; Visit Provider Internal Medicine Adolescent Medicine
DX: I11.0 Hypertensive heart disease with heart failure (principal); I50.31 Acute diastolic (congestive) heart failure; J96.01 Acute respiratory failure with hypoxia; J91.8 Pleural effusion in other conditions classified elsewhere; I31.39 Other pericardial effusion (noninflammatory); D61.818 Other pancytopenia; N17.9 Acute kidney failure, unspecified; R18.8 Other ascites; Z80.0 Family history of malignant neoplasm of digestive organs; Z84.89 Family history of other specified conditions; Z96.652 Presence of left artificial knee joint; Z98.890 Other specified postprocedural states; E11.649 Type 2 diabetes mellitus with hypoglycemia without coma; E78.5 Hyperlipidemia, unspecified; H54.61 Unqualified visual loss, right eye, normal vision left eye; Z79.899 Other long term (current) drug therapy; Z88.6 Allergy status to analgesic agent; I89.0 Lymphedema, not elsewhere classified; E83.42 Hypomagnesemia; J45.909 Unspecified asthma, uncomplicated; E66.9 Obesity, unspecified; Z68.32 Body mass index [BMI] 32.0-32.9, adult; I25.10 Atherosclerotic heart disease of native coronary artery without angina pectoris
CPT/HCPCS: 32555; 36415; 71045; 71250; 76705; 80048; 80053; 80061; 82042; 82945; 82962; 83036; 83615; 83735; 83880; 84443; 84484; 85025; 85610; 87070; 87205; 87636; 89051; 93005; 93306; 94760; J1650; J1939; J3475

== ENCOUNTER 2024-05-21 11:00 | Outpatient (CLI) | payer BC, MEDICARE, SELFPAY ==
[2024-05-21 11:28] LABS: Basophils # 0.1 K/mm3 (0-0.2); Basophils % 0.8 % (0.1-2.0); Eosinophils # 0.1 K/mm3 (0.0-0.4); Eosinophils % 1.5 % (0.1-12.0); Hematocrit 41.9 % (37.0-47.0); Hemoglobin 13.7 g/dL (12.2-16.2); Lymphocytes # 1.6 K/mm3 (0.7-4.5); Lymphocytes % 21.8 % (10-50); Mean Corpuscular HGB Conc 32.7 g/dL (31.8-35.4); Mean Corpuscular Hemoglobin 29.4 pg (27.0-31.2); Mean Corpuscular Volume 89.9 fl (81-99); Mean Platelet Volume 12.3 fl (7.4-10.4); Monocytes # 0.6 K/mm3 (0.1-1.0); Monocytes % 7.3 % (1.7-9.3); Neutrophils # 5.1 K/mm3 (1.8-7.8); Neutrophils % 68.5 % (37.0-80.0); Platelet Count 116 K/mm3 (142-424); Red Blood Count 4.66 M/mm3 (4.20-5.40); Red Cell Distribution Width 13.3 % (11.5-17.5); White Blood Count 7.5 K/mm3 (4.8-10.8)
[2024-05-21 12:14] LABS: Alanine Aminotransferase 23 U/L (12-78); Albumin Level 3.6 g/dl (3.5-5.0); Alkaline Phosphatase 153 U/L (38-126); Anion Gap 12.3 mEq/L (5-15); Aspartate Amino Transferase 38 U/L (14-36); Bilirubin,Direct 0.3 mg/dl (0.0-0.4); Bilirubin,Indirect 0.8 mg/dL (0.0-0.9); Bilirubin,Total 1.1 mg/dl (0.2-1.3); Bilirubin,Unconjugated 0.8 mg/dL (0.0-1.1); Blood Urea Nitrogen 26 mg/dl (7-17); Calcium 9.2 mg/dl (8.4-10.2); Carbon Dioxide 31 mmol/L (22.0-30.0); Chloride 102 mmol/L (98-107); Chol/HDL Ratio 2.6 (1-3.5); Cholesterol 179 mg/dl (140-200); Estimated Glomerular Filt Rate 30 ml/min (>60); GFR (African American) 36 ML/MIN (>60); Glucose 112 mg/dl (74-100); HDL Cholesterol 68 mg/dl (40-60); Magnesium 1.4 mg/dl (1.6-2.3); Potassium 4.3 mmoL/L (3.5-5.1); Sodium 141 mmol/L (136-145); Total Protein,Serum 6.5 g/dl (6.3-8.2); Triglycerides 106 mg/dl (30-150); VLDL Cholesterol 21 mg/dL (0-40)
[2024-05-21 12:24] LABS: Direct LDL Cholesterol 68.62 mg/dL (100-129)
[2024-05-21 12:29] LABS: Free T4 (Free Thyroxine) 1.44 ng/dl (0.78-2.19)
[2024-05-21 12:47] LABS: Thyroid Stimulating Hormone 5.48 uIU/mL (0.465-4.68)
== END 2024-05-21 23:59 | disposition home or self-care (01) ==
PROVIDERS: PCP Nurse Practitioner; Visit Provider Physician Assistant
DX: I07.1 Rheumatic tricuspid insufficiency (principal); I34.0 Nonrheumatic mitral (valve) insufficiency; I10 Essential (primary) hypertension; E78.2 Mixed hyperlipidemia; E11.9 Type 2 diabetes mellitus without complications
CPT/HCPCS: 36415; 80048; 80061; 80076; 83735; 84439; 84443; 85025

== ENCOUNTER 2024-06-11 08:26 | Outpatient (CLI) | payer BC, MEDICARE, SELFPAY ==
--- OUTSIDE RECORDS SUMMARY | 2024-06-11 08:29 | XMS_ITS | Continuity of Care Document ---
Author Organization [facility] Phone Care Team Providers Care Arranger Assembler Name Role Phone THOMAS, AMY Mazariegos Primary Care KINGSLEY ALEGRE Unavailable KINGSLEY ALEGRE Admitting KINGSLEY ALEGRE Primary Attending ALLERGIES AND ADVERSE REACTIONS ALLERGIES AND ADVERSE REACTIONS Code System Allergy Substance Adverse Reaction Date Reaction (Severity) Comment Status Reported By Updated By Shilpi (Free Text Allergy) Adverse reaction to substance Not Specified active [id number] on May 06, 2024 1:26:46 PM UT FAMILY HISTORY RELATION: Father Status: Cause of : Multiple malignancy Age at : 84 SNOMED-CT Diagnosis Age At Onset Information not available RELATION: Mother Status: Cause of : Transient cerebral ischemia Age at : 77 SNOMED-CT Diagnosis Age At Onset [id number] Alzheimer's disease RESULTS Patient: SONIA AGN Date of : [birth year] LABORATORY RESULTS ORDER 200: COMP METABOLIC PA ALYSSA (LOINC: 21711-8) ORDER DATE: May 06, 2024 1:20:00 PM UT Specimen Source: Plasma Specimen Type: Plasma specim en PERFORMING LAB: [address] [id number] Result Comment: Final Result Date: May 06, 2024 1:59:00 PM UT (TECH: KSM) LOINC TEST FLAG RESULT REFERENCE RANGE UPDA DARLEEN BY 2951-2 Sodium [Moles/volume ] in Serum or Plasma N 138 mmol/L 136 mmol/L - 145 mmol/L May 06, 2024 1:59:00 PM UTC (TECH: KSM) 2823-3 Potassium [Moles/volume] in Serum or Plasma N 3.7 mmol/L 3.5 mmol/L - 5.1 mmol/L May 06, 2024 1:59:00 PM UTC (TECH: Replise) 5-0 Chloride [Moles/volu me] in Serum or Plasma N 104 mmol/L 98 mmol/L - 107 mmol/L May 06, 2024 1:59:00 PM UTC (TECH: Replise) 8-9 Carbon dioxide, tota l [Moles/volume] in Serum or Plasma N 27 mmol/L 21 mmol/L - 32 mmol/L May 06, 2024 1:59:00 PM UTC (TECH: Replise) 12130-9 Anion gap 3 in Serum or Plasma N 7.0 May 06, 2024 1:59:00 PM UTC (TECH: Replise) 2345-7 Glucose [Mass/volume ] in Serum or Plasma H 167 mg/dL 70 mg/dL - 110 mg/dL May 06, 2024 1:59:00 PM UTC (TECH: Replise) 3094-0 Urea nitrogen [Mass/volume] in Serum or Plasma H 23 mg/dL 7 mg/dL - 18 mg/dL May 06, 2024 1:59:00 PM UTC (TECH: Replise) 2160-0 Creatinine [Mass/volume] in Serum or Plasma H 1.5 mg/dL 0.6 mg/dL - 1.0 mg/dL May 06, 2024 1:59:00 PM UTC (TECH: Replise) 3097-3 Urea nitrogen/Creatinine [Mass Ratio] in Serum or Plasma N 15.3 9 - May 06, 2024 1:59:00 PM UTC (TECH: Replise) 28757-0 Glomerular filtratio n rate/1.73 sq M.predicted by Creatinine-based formula (MDRD) L 38 mL/min >60 May 06, 2024 1:59:00 PM UTC (TECH: Replise) 35686-2 Osmolality of Serum or Plasma by calculated by sum of electrolytes N 295 mosm/kg 275 mosm/kg - 301 mosm/kg May 06, 2024 1:59:00 PM UTC (TECH: Replise) 4275-2 Protein [Mass/volume ] in Serum or Plasma N 6.9 g/dL 6.4 g/dL - 8.2 g/dL May 06, 2024 1:59:00 PM UT (TECH: Replise) 1751-7 Albumin [Mass/volume ] in Serum or Plasma L 3.1 g/dL 3.4 g/dL - 5.0 g/dL May 06, 2024 1:59:00 PM UT (FanChatter: Replise) 36799-9 Calcium [Mass/volume ] in Serum or Plasma N 8.7 mg/dL 8.5 mg/dL - 10.1 mg/dL May 06, 2024 1:59:00 PM UT (TECH: Replise) 10041-3 Calcium [Mass/volume ] corrected for total protein in Serum or Plasma N 9.4 mg/dL 8.5 mg/dL - 10.1 mg/dL May 06, 2024 1:59:00 PM UT (TECH: Replise) 1975-2 Bilirubin.total [Mass/volume] in Serum or Plasma N 0.7 mg/dL 0.4 mg/dL - 1.5 mg/dL May 06, 2024 1:59:00 PM UT (TECH: Replise) 1920-8 Aspartate aminotransferase [Enzymatic activity/volume] in Serum or Plasma N 37 U/L 15 U/L - 37 U/L May 06, 2024 1:59:00 PM UT (TECH: Replise) 1742-6 Alanine aminotransferase [Enzymatic activity/volume] in Serum or Plasma N 20 U/L 12 U/L - 78 U/L May 06, 2024 1:59:00 PM UT (TECH: Replise) 6768-6 Alkaline phosphatase [Enzymatic activity/volume] in Serum or Plasma H 191 U/L 53 U/L - 141 U/L May 06, 2024 1:59:00 PM UT (TECH: Replise) ORDER 300: CBC AUTO W DIFF ( LOINC: 12327-6) ORDER DATE: May 06, 2024 1:20:00 PM UT Specimen Source: Whole Blood Specimen Type: Whole blood s ample PERFORMING LAB: [address] [id number] Result Comment: Final Result Date: May 06, 2024 1:35:00 PM UT (TECH: Replise) LOINC TEST FLAG RESULT REFERENCE RANGE UPDA DARLEEN BY 6690-2 Leukocytes [#/volume] in Blood by Automated count N 6.4 10^3/uL 4.5 10^3/uL - 11.5 10^3/uL May 06, 2024 1:35:00 PM UTC (TECH: Replise) 789-8 Erythrocytes [#/volume] in Blood by Automated count N 4.40 10^6/uL 4.25 10^6/uL - 5.57 10^6/uL May 06, 2024 1:35:00 PM UTC (TECH: Replise) 718-7 Hemoglobin [Mass/volume] in Blood N 12.9 g/dL 12.0 g/dL - 15.7 g/dL May 06, 2024 1:35:00 PM UTC (TECH: Replise) 87209-7 Hematocrit [Volume Fraction] of Blood N 39.4 % 36.0 % - 47.0 % May 06 1:35:00 PM UTC (TECH: Replise) 787-2 Erythrocyte mean corpuscular volume [Entitic volume] by Automated count N 89.5 fl 80 fl - 95 fl May 06, 2024 1:35:00 PM UTC (TECH: Replise) 35390-2 Erythrocyte mean corpuscular hemoglobin [Entitic mass] in Blood from [place]etus by Automated count N 29.3 pg 27.0 pg - 34.0 pg May 06, 2024 1:35:00 PM UTC (TECH: Replise) 87128-4 Erythrocyte mean corpuscular hemoglobin concentration [Mass/volume] in Blood from Fetus by Automated count N 32.7 g/dL 32.0 g/dL - 36.0 g/dL May 06, 2024 1:35:00 PM UTC (TECH: Replise) 86498-3 Platelets [#/volume] in Blood L 117 10^3/uL 150 10^3/uL - 450 10^3/uL May 06, 2024 1:35:00 PM UTC (TECH: Replise) 81465-4 Erythrocyte distribution width [Ratio] N 12.9 % 12.3 % - 15.1 % May 06, 2024 1:35:00 PM UTC (TECH: Replise) 96170-2 Platelet mean volume [Entitic volume] in Blood by Automated count H 11.5 fl 7.4 fl - 10.4 fl May 06, 2024 1:35:00 PM UTC (TECH: Replise) 99661-1 Granulocytes/100 leukocytes in Blood by Automated count N 66.5 % 40 % - 75 % May 06 1:35:00 PM UTC (TECH: Replise) 736-9 Lymphocytes/100 leukocytes in Blood by Automated count N 23.8 % 15 % - 57 % May 06 1:35:00 PM UTC (TECH: Replise) 5905-5 Monocytes/100 leukocytes in Blood by Automated count N 7.0 % 4.0 % - 12.0 % May 06 1:35:00 PM UTC (TECH: Replise) 713-8 Eosinophils/100 leukocytes in Blood by Automated count N 1.7 % 0.0 % - 4.0 % May 06 1:35:00 PM UTC (TECH: Replise) 706-2 Basophils/100 leukocytes in Blood by Automated count N 0.5 % 0.0 % - 1.0 % May 06 1:35:00 PM UTC (TECH: Replise) 41559-5 Immature granulocytes [#/volume] in Blood N 0.5 % 0.0 % - 0.8 % May 06 1:35:00 PM UTC (TECH: Replise) 57101-9 Granulocytes [#/volume] in Blood by Automated count N 4.25 10^3/uL May 06 1:35:00 PM UTC (TECH: Replise) 731-0 Lymphocytes [#/volume] in Blood by Automated count N 1.52 10^3/uL May 06 1:35:00 PM UTC (TECH: Replise) 742-7 Monocytes [#/volume] in Blood by Automated count N 0.45 10^3/uL May 06, 2024 1:35:00 PM UTC (TECH: Replise) 711-2 Eosinophils [#/volume] in Blood by Automated count N 0.11 10^3/uL May 06 1:35:00 PM UTC (TECH: Replise) 704-7 Basophils [#/volume] in Blood by Automated count N 0.03 10^3/uL May 06, 2024 1:35:00 PM UTC (TECH: Replise) 85618-6 Immature granulocytes [#/volume] in Blood N 0.03 10^3/uL May 06 1:35:00 PM UTC (TECH: [email or web address]) 73566-4 Manual differential performed [Presence] in Blood N NO May 06, 2024 1:35:00 PM UTC (TECH: KSM) ORDER 700: TROPONIN I 1 HOUR PROTOCOL (LOINC: 79928-0) ORDER DATE: May 06, 2024 1:20:00 PM UTC Specimen Source: Plasma Specimen Type: Plasma specim en PERFORMING LAB: [place] [id number] Result Comment: Final Result Date: May 06, 2024 2:51:00 PM UTC (TECH: [email or web address]) LOINC TEST FLAG [place] [address]-7 Troponin I.cardiac panel - Serum or Plasma by High sensitivity method N 32 ng/L 0 ng/L - 51 ng/L May 06 2:51:00 PM UTC (TECH: [email or web address]) ORDER 800: TROPONIN QUANT (L OINC: 23461-6) ORDER DATE: May 06, 2024 1:20:00 PM UTC Specimen Source: Plasma Specimen Type: Plasma specim en PERFORMING LAB: [address] [id number] Result Comment: Final Result Date: May 06, 2024 1:59:00 PM UTC (TECH: KSM) LOINC TEST FLAG RESULT [place] [address]-4 Troponin I.cardiac panel - Serum or Plasma by High sensitivity method N 33 ng/L 0 ng/L - 51 ng/L May 06 1:59:00 PM UTC (TECH: KSM) ORDER 900: B-TYPE NATRIURETI C PEPTIDE BNP (LOINC: 60314-8) ORDER DATE: May 06, 2024 1:20:00 PM UTC Specimen Source: Whole Blood Specimen Type: Whole blood s ample PERFORMING LAB: [address] [id number] Result Comment: Final Result Date: May 06, 2024 1:59:00 PM UTC (TECH: KSM) LOINC TEST FLAG RESULT [place] [address]-0 Natriuretic peptide B [Mass/volume] in Serum or Plasma N 96.4 pg/mL 0.0 pg/mL - 100 pg/mL May 06, 2024 1:59:00 PM UTC (TECH: KSM) ORDER 1200: MAGNESIUM (LOINC : 68011-9) ORDER DATE: May 06, 2024 1:21:00 PM UTC Specimen Source: Serum/Plasm a Specimen Type: Acellular blo od (serum or plasma) specimen PERFORMING LAB: [address] [id number] Result Comment: Final Result Date: May 06, 2024 2:06:00 PM UTC (TECH: KSM) LOINC TEST FLAG RESULT [place] [address]-3 Magnesium [Mass/volume] in Serum or Plasma L 1.4 mg/dL 1.8 mg/dL - 2.4 mg/dL May 06, 2024 2:06:00 PM UTC (TECH: KSM) ORDER 1300: PT PROTHROMBIN T ALEXANDRO W INR (LOINC: 65632-5) ORDER DATE: May 06, 2024 1:30:00 PM UTC Specimen Source: Plasma Specimen Type: Plasma specim en PERFORMING LAB: [address] [id number] Result Comment: Final Result Date: May 06, 2024 2:01:00 PM UTC (TECH: KSM) LOINC TEST FLAG RESULT [place] [address]-2 INR in Platelet poor plasma or blood by Coagulation assay N 11.3 seconds 9.1 seconds - 12.0 seconds May 06, 2024 2:01:00 PM UTC (TECH: KSM) 6301-6 INR in Platelet poor plasma by Coagulation assay N 1.04 0.9 - 1.1 May 06, 2024 2:01:00 PM UTC (TECH: KSM) ORDER 1400: PTT PARTIAL THRO MB TIME (LOINC: 39088-1) ORDER DATE: May 06, 2024 1:30:00 PM UTC Specimen Source: Plasma Specimen Type: Plasma specim en PERFORMING LAB: [address] [id number] Result Comment: Final Result Date: May 06, 2024 2:01:00 PM UTC (TECH: KSM) LOINC TEST FLAG RESULT [place] [address]-0 Activated partial thromboplastin time (aPTT) in Platelet poor plasma by Coagulation assay L 22.7 seconds 24.5 seconds - 32.8 seconds May 06, 2024 2:01:00 PM UT (TECH: KSM) ORDER 1500: D-DIMER QUANTITA TIVE (LOINC: 7799-0) ORDER DATE: May 06, 2024 1:30:00 PM UTC Specimen Source: Plasma Specimen Type: Plasma specim en PERFORMING LAB: [address] [id number] Result Comment: Final Result Date: May 06, 2024 2:07:00 PM UTC (TECH: KSM) LOINC TEST FLAG RESULT REFERENCE RANGE UPDA DARLEEN BY 7799-0 Fibrin D-dimer [Units/volume] in Platelet poor plasma HH 1560 ng/mL 0 ng/mL - 500 ng/mL April 152024 2:07:00 PM UT (TECH: KSM) LABORATORY NARRATIVE RESULTS Information is not available RADIOLOGY RESULTS ORDER 1000: CHEST SINGLE VIE W/PORTABLE (LOINC: 22939-7) ORDER DATE: May 06, 2024 1:20:00 PM UT PERFORMING LAB: [address] [id number] Final Result Date: May 06, 2024 1:41:[address] [place] [address] Name: DONNA SCOTT Exam Date: 05/06/2024 : 1955 Age 68 years Gender: F Physician: Facility: [facility] Facility HSV: Outpatient Exam: CHEST SINGLE VIEW/PORTABLE EXAMINATION: XR CHEST 1 VIEW PORTABLE CLINICAL INDICATION: Female, 68 years old. Patient presents with chest pain, shortness of breath for 1 day. COMPARISON: XR Chest 08/29/2023. FINDINGS: 1 view. Support Devices: None. Heart: Cardiac silhouette is normal in size. Mediastinum: Mediastinal contours are normal. Lungs/Pleura: Large right pleural effusion and diffuse right lung airspace opacity with aeration of the right lung apex. Left lung is clear. No pneumothorax is present. Osseous Structures: Stable appearance of the osseous structures. IMPRESSION: Large right pleural effusion with right lung atelectasis and/or airspace opacity. Electronically signed by: Jose Rodriguez MD 05/06/2024 11:08 AM EDT RP Dictated By: Jose Rodriguez Transcribed By: Transcribed On: 05/06/2024 9:41 AM Electronically signed by: Jose Rodriguez 05/06/2024 Thank you for referring DONNA SCOTT to [facility]. Legally authenticated by LUIS ACUÑA MD 2024-05-06 09:41:17 PATHOLOGY NARRATIVE RESULTS Information is not available MICROBIOLOGY RESULTS No Micro Labs/Results Exist for Patient BLOOD ADMIN RESULTS Information is not available TREATMENT PLAN DISCHARGE MEDICATIONS Status RXNORM Medication Dose Route Frequency Dates Comments U pdated By Patient discharge medication information is not available. PATIENT OPEN ORDERS Code System Description Frequency Occurrences Priority [place] [address]-2 [facility] EKG study ONE TIME 0 Stat May 06, 2024 1:20:00 PM UT SIS Bolden MD [id number] on May 06, 2024 1:20:00 PM [facility] SCHEDULED PROCEDURES Code System Description Status Scheduled Date Upd ated By Patient scheduled procedure information is not available. MEDICATIONS HOME MEDICATIONS Status RXNORM NDC Medication Dose Route Frequency Dates Comments Reported By Updated By Drug Treatment Unknown DISCHARGE MEDICATIONS Status RXNORM NDC Medication Dose Route Frequency Dates Comments Physician Updated By No Discharge Medication Info rmation Available INPATIENT MEDICATIONS Status RXNORM NDC Medication Dose Route Frequency Rat e Quantity Dates Comments Physician Updated By Discont inued [id number] 4622 1032 608 nitroglycer in oint (NITRO-BID) 2 % OINT 1.0 IN ENTERA L ONE TIME ONLY Start: May 06, 2024 1:25:0 0 PM UTC End: May 06, 2024 1:25:0 0 PM UTC SIS Bolden MD INTERFAC ED on May 06, 2024 1:24:00 PM UT Discont inued [id number] 0040 9610 204 furosemide 40mg vial (LASIX) 10 MG/ML SOLN 40.0 MG INTRAV ENOUS ONE TIME ONLY Start: May 06, 2024 1:25:0 0 PM UTC End: May 06, 2024 1:25:0 0 PM UTC SIS Bolden MD INTERFAC ED on May 06, 2024 1:24:00 PM UT Discont inued 034162 3452 0003 310 metoprolol tartrate(LO PRESSOR) 1 MG/ML SOLN 5.0 MG INTRAV ENOUS ONE TIME ONLY Start: May 06, 2024 1:25:0 0 PM UTC End: May 06, 2024 1:25:0 0 PM UTC SIS Bolden MD INTERFAC ED on May 06, 2024 1:24:00 PM UT Discont inued 6498 0033 990 MAGNESIUM-O XIDE 400 (240 Mg) MG TABS 400.0 MG ORAL ONE TIME ONLY Start: May 06, 2024 2:54:0 0 PM UTC End: May 06, 2024 2:54:0 0 PM UTC SIS Bolden MD INTERFAC ED on May 06, 2024 2:52:00 PM UT Discont inued 058027 8474 3061 400 hydrALAZINE (APRESOLINE ) 20 MG/ML SOLN 20.0 MG INTRAV ENOUS ONE TIME ONLY Start: May 06, 2024 3:02:0 0 PM UTC End: May 06, 2024 3:02:0 0 PM UTC SIS Bolden MD INTERFAC ED on May 06, 2024 3:00:00 PM UT SOCIAL HISTORY SOCIAL HISTORY SNOMED-CT Social History Element Description Effective Dates Offered Cessation Comment UpdatedBy [id number] Current Tobacco smoking status Never Smoked [id number] on May 06, 2024 1:27:05 PM UT SOCIAL HISTORY - Gender Sex: Female SOCIAL HISTORY - Status : status i nformation is not available Intention in Next Year: intention information is not available SOCIAL HISTORY - Sexual Behavior Sexual Orientation Gender Identity SNOMED-CT Description SNO MED -CT Description Activity Level No of Partners Partner Type UpdatedBy Information is not available VITAL SIGNS PATIENT VITAL SIGNS This section displays the mo st recent value for each vital sign as of May 08, 2024 2:09:52 AM [facility] Loinc Code Vital Sign [place] [address]-1 Body weight Measured May 06 1:24:49 PM UT 95.5 kg (211.0 lb) [id number] on May 06, 2024 1:24:49 PM [facility] 8867-4 Heart rate May 06, 2024 4:16:00 PM UT 76 /min [id number] on May 06, 2024 4:35:36 PM [facility] 78094-6 Oxygen saturation in Arterial blood by Pulse oximetry May 06, 2024 4:16:00 PM UT 97.0 % [id number] on May 06, 2024 4:35:36 PM [facility] 8462-4 Diastolic blood pressure May 06, 2024 4:15:00 PM UTC 67.0 mm[Hg] [id number] on May 06, 2024 4:35:35 PM [facility] 9279-1 Respiratory rate May 06, 2024 1:18:00 PM UT 26 /min [id number] on May 06, 2024 1:24:49 PM [facility] 8480-6 Systolic blood pressure May 06, 2024 4:15:00 PM UT 151.0 mm[Hg] [id number] on May 06, 2024 4:35:35 PM [facility] PEDIATRIC GROWTH CHART - VITAL SIGNS This section displays Head C ircumference Percentile, Weight for Length Percentile and BMI Percentile Loinc Code Pediatric Measure Age (Months) Result Updat ed By No Pediatric Growth Chart Pe rcentile Information Available. HEALTH CONCERNS Problems Concern Status Health Concern problem infor mation not available. Smoking Status Status Years Used Consumed packs p er day Health Concern smoking histo ry information not available. Family History Concern Status Health Concern family histor y information not available. ENCOUNTERS ENCOUNTER INFORMATION Reason for Visit SHORTNESS OF BREATH Admission May 06, 2024 1:06:[address] [id number] Discharge May 06, 2024 4:37:00 PM [facility] AN OTHER [facility] ENCOUNTER DIAGNOSES Notes information is not queta ilable. Code System Diagnosis Onset Date Diagnosis information is not available. ABSTRACT DIAGNOSES Code System Diagnosis Updated By R06.02 ICD10 SHORTNESS OF BREATH [id number] on May 08, 2024 2:09:11 AM [facility] R07.89 ICD10 OTHER CHEST PAIN [id number] on May 08, 2024 2:09:11 AM [facility] R07.1 ICD10 CHEST PAIN ON BREATHING [id number] on May 08, 2024 2:09:11 AM [facility] I11.0 ICD10 HYPERTENSIVE HEA RT DISEASE WITH HEART FAILURE [id number] on May 08, 2024 2:09:11 AM [facility] I50.21 ICD10 ACUTE SYSTOLIC ( CONGESTIVE) HEART FAILURE [id number] on May 08, 2024 2:09:11 AM UT I16.0 ICD10 HYPERTENSIVE URGENCY [id number] on May 08, 2024 2:09:11 AM UT J90 ICD10 PLEURAL EFFUSION , NOT ELSEWHERE CLASSIFIED [id number] on May 08, 2024 2:09:11 AM UT R60.1 ICD10 GENERALIZED EDEMA [id number] on May 08, 2024 2:09:11 AM UTC E66.01 ICD10 MORBID (SEVERE) OBESITY DUE TO EXCESS CALORIES [id number] on May 08, 2024 2:09:11 AM UT Z68.33 ICD10 BODY MASS INDEX [BMI] 33.0-3 3.9, ADULT [id number] on May 08, 2024 2:09:11 AM UT Z90.49 ICD10 ACQUIRED ABSENCE OF OTHER SPECIFIED PARTS OF DIGESTIVE TRACT [id number] on May 08, 2024 2:09:11 AM UT Z88.5 ICD10 ALLERGY STATUS TO NARCOTIC A GENT [id number] on May 08, 2024 2:09:11 AM [facility] CARE TEAM Care Arranger Assembler Role AMY GUZMAN Primary Care KINGSLEY ALEGRE Referring KINGSLEY ALEGRE Admitting KINGSLEY ALEGRE Primary Attending CARE TEAM CARE maintainer central office Role on Team Status Start Date End Date Update d By SIS Bolden MD Referring normal May 06, 2024 1:43:47 PM UT May 06, 2024 4:37:00 PM UTC [id number] on May 06, 2024 1:43:47 PM UT SIS Bolden MD Attending normal May 06, 2024 1:43:47 PM UTC May 06, 2024 4:37:00 PM UTC [id number] on May 06, 2024 1:43:47 PM UT SIS Bolden MD Admitting normal May 06, 2024 1:43:47 PM UTC May 06, 2024 4:37:00 PM UTC [id number] on May 06, 2024 1:43:47 PM [facility] THOMAS REYES APRN PCP normal May 06, 2024 1:06:45 PM UTC May 06, 2024 4:37:00 PM UTC [id number] on May 06, 2024 1:43:47 PM UTC
--- OUTSIDE RECORDS SUMMARY | 2024-06-11 08:29 | XMS_ITS | Continuity of Care Document ---
Author Organization [facility] Phone Care Team Providers Care Freelance Writer Name Role Phone AMY GUZMAN Primary Care AMY GUZMAN Unavailable AMY GUZMAN Primary Attending AMY GUZMAN Admitting ALLERGIES AND ADVERSE REACTIONS ALLERGIES AND ADVERSE REACTIONS Code System Allergy Substance Adverse Reaction Date Reaction (Severity) Comment Status Reported By Updated By Shilpi (Free Text Allergy) Adverse reaction to substance Not Specified active [id number] on August 26, 2023 5:24:26 PM [facility] FAMILY HISTORY RELATION: Father Status: Cause of : Multiple malignancy Age at : 84 SNOMED-CT Diagnosis Age At Onset Information not available RELATION: Mother Status: Cause of : Transient cerebral ischemia Age at : 77 SNOMED-CT Diagnosis Age At Onset [id number] Alzheimer's disease RESULTS Patient: SONIA GAN Date of : November [birth year] LABORATORY RESULTS Information is not available LABORATORY NARRATIVE RESULTS Information is not available RADIOLOGY RESULTS ORDER 100: VENOUS DUPLEX LOW ER LEFT (LOINC: 26156-9) ORDER DATE: February 16, 2024 2:42:00 PM [facility] PERFORMING LAB: [address] [id number] Final Result Date: February 3:04:[address] [place] [address] Name: DONNA SCOTT Exam Date: 02/16/2024 : 1955 Age 68 years Gender: F Physician: AMY GUZMAN Facility: [facility] Facility HSV: Outpatient Exam: VENOUS DUPLEX LOWER LEFT EXAMINATION: US LOWER EXTREMITY VEINS LIMITED FOLLOW UP LEFT INDICATION: Diagnosed: Localized edema. TECHNIQUE: High resolution grayscale and venous duplex sonographic imaging of the deep veins of the left lower extremity was performed. Transverse imaging performed without and with compression. COMPARISON: None FINDINGS: Normal patency flow and compressibility of interrogated lower extremity deep veins. Nonspecific subcutaneous edema. IMPRESSION: 1. No sonographic evidence for deep venous thrombosis. 2. Nonspecific subcutaneous edema. Electronically signed by: Ridge Nicholson DO 02/16/2024 03:22 PM [facility] Dictated By: RIDGE NICHOLSON Transcribed By: Transcribed On: 02/16/2024 10:04 AM Electronically signed by: RIDGE NICHOLSON 02/16/2024 Thank you for referring DONNA SCOTT to [facility]. Legally authenticated by ALEJANDRO SABILLON DO 2024-02-16 10:04:57 PATHOLOGY NARRATIVE RESULTS Information is not available MICROBIOLOGY RESULTS No Micro Labs/Results Exist for Patient BLOOD ADMIN RESULTS Information is not available MEDICATIONS HOME MEDICATIONS Status RXNORM NDC Medication Dose Route Frequency Dates Comments Reported By Updated By Drug Treatment Unknown DISCHARGE MEDICATIONS Status RXNORM NDC Medication Dose Route Frequency Dates Comments Physician Updated By No Discharge Medication Info rmation Available INPATIENT MEDICATIONS Status RXNORM NDC Medication Dose Route Frequency Rat e Quantity Dates Comments Physician Updated By No Inpatient Medication Info rmation Available SOCIAL HISTORY SOCIAL HISTORY SNOMED-CT Social History Element Description Effective Dates Offered Cessation Comment UpdatedBy [id number] Historical Tobacco smoking status Never Smoked [id number] on September 01, 2023 8:51:49 PM [facility] SOCIAL HISTORY - Gender Sex: Female SOCIAL HISTORY - Status : status i nformation is not available Intention in Next Year: intention information is not available SOCIAL HISTORY - Sexual Behavior Sexual Orientation Gender Identity SNOMED-CT Description SNO MED -CT Description Activity Level No of Partners Partner Type UpdatedBy Information is not available HEALTH CONCERNS Problems Concern Status Health Concern problem infor mation not available. Smoking Status Status Years Used Consumed packs p er day Health Concern smoking histo ry information not available. Family History Concern Status Health Concern family histor y information not available. ENCOUNTERS ENCOUNTER INFORMATION Reason for Visit R60.0 Admission February 16, 2024 2:31:00 PM UTC B [facility] [address] [facility] [id number] Discharge February 16, 2024 2:31:00 PM UTC D ISCHARGED TO HOME OR SELF CARE ENCOUNTER DIAGNOSES Notes information is not queta ilable. Code System Diagnosis Onset Date Diagnosis information is not available. ABSTRACT DIAGNOSES Code System Diagnosis Updated By R60.0 ICD10 LOCALIZED EDEMA [id number] on D ecember 2023 4:07:44 PM UTC R60.0 ICD10 LOCALIZED EDEMA [id number] on J anuary 2024 9:18:45 AM UTC CARE TEAM Care Freelance Writer Role AMY GUZMAN Primary Care AMY GUZMAN Referring AMY GUZMAN Primary Attending AMY GUZMAN Admitting CARE TEAM CARE talent rep Role on Team Status Start Date End Date Update d By THOMAS REYES APRN PCP normal February 13, 2024 4:07:44 PM UTC February 16, 2024 2:31:00 PM UTC [id number] on February 13, 2024 4:07:44 PM UTC THOMAS REYES APRN Referring normal February 13, 2024 4:07:44 PM UTC February 16, 2024 2:31:00 PM UTC [id number] on February 13, 2024 4:07:44 PM UTC THOMAS REYES APRN Attending normal February 13, 2024 4:07:44 PM UTC February 16, 2024 2:31:00 PM UTC [id number] on February 13, 2024 4:07:44 PM UTC THOMAS REYES APRN Admitting normal February 13, 2024 4:07:44 PM UTC February 16, 2024 2:31:00 PM UTC [id number] on February 13, 2024 4:07:44 PM UTC
--- NOTE | 2024-06-11 08:45 | CA_ITS ---
APPROVED REPORT EXAM: Limited 2D and color flow Echocardiogram [employer] Manager: RT Giuliano(R) Ht: 5 ft 7 in Wt: 182lbs BSA: 1.94 BP: 189/76 mmHg Indications: RV dilation, mild MR, mild TR echo done 05/06/24. edema, HTN, DM, hyperlipidemia, CHF. Ordered as a limited to reassess MR and TR 2D Dimensions EF AP4 64.00 % GL Strain -20.0 % LV Diastology E Decel Time 250 (160-240 msec) E/A Ratio 1.1 Mitral Valve MV E Max Chivo. 112.0 (40-130 cm/s) MV A Velocity 103.0 (40-130 cm/s) E/A Ratio 1.09 MV PHT 73.0 ms Tricuspid Valve TR P. Velocity 258.00 cm/s Other Information Study Quality: Fair Conclusion This is a limited TTE to evaluate for MR and TR. Limited windows are obtained. The left ventricle is normal in size. There is increased LV wall thickness. There is normal global LV systolic function. LVEF is 55%. Mild MARLEY is noted, with no evidence of septal contact. Mild MR is present Mild TR is present. RVSP is 30-35 mmHg. Electronically signed by : Rima Sellers MD 06/12/2024 23:20:28
== END 2024-06-11 23:59 | disposition home or self-care (01) ==
LOC: RT 08:27
PROVIDERS: PCP Nurse Practitioner; Visit Provider Physician Assistant
DX: I42.2 Other hypertrophic cardiomyopathy (principal); I34.0 Nonrheumatic mitral (valve) insufficiency; I36.1 Nonrheumatic tricuspid (valve) insufficiency
CPT/HCPCS: 93308

== ENCOUNTER 2024-06-15 13:58 | Outpatient (CLI) | payer BC, MEDICARE, SELFPAY ==
--- NOTE | 2024-06-15 14:01 | XR_ITS ---
FINAL REPORT TECHNIQUE: Chest PA & Lateral CLINICAL HISTORY: Pleural effusion COMPARISON: 05/08/2024 FINDINGS: 2 views of the chest were performed. The heart size is normal. The mediastinum is within normal limits. The lungs are better inflated than on the prior exam. There is minimal scarring in the right lung base. There are no pleural effusions. There is no pneumothorax. The bony thorax appears intact. IMPRESSION: No acute cardiopulmonary process. Reviewed, Interpreted and Dictated by Anish Gutierrez MD Transcribed by Tawanna Lima Authenticated and [facility]
== END 2024-06-15 23:59 | disposition home or self-care (01) ==
LOC: RAD 14:00
PROVIDERS: PCP Nurse Practitioner; Visit Provider Internal Medicine Pulmonary Disease
DX: J90 Pleural effusion, not elsewhere classified (principal)
CPT/HCPCS: 71046

== ENCOUNTER 2024-07-05 12:13 | Outpatient (CLI) | payer BC, MEDICARE, SELFPAY ==
--- NOTE | 2024-07-05 | CA_ITS ---
APPROVED REPORT Exam: Pharmacologic Technologist: Miriam Faria Ht: 5 ft 7 in Wt: 190 lbs BSA: 1.98 m2 HR: 53 bpm BP: 199/71 mmHg Rhythm: Nsr Medical History Medical History: HTN, Hyperlipidemia, Diabetes Medications: Atorvastatin, Bumetanide, Dapagliflozin propanediol, Irbesartan, Spironolactone Allergies: Pentazocine Cardiac Risk Factors: HTN, Hyperlipidemia, Diabetes Stress Test Details Test: Lexiscan HR Resting HR: 53 bpm Max Heart Rate (APMHR): 152 bpm Target HR (85% APMHR): 129 bpm Recovery HR: 68 bpm BP Resting BP: 199.0/71.0 mmHg Max BP: 199.0/71.0 mmHg Recovery BP: 181.0/76.0 mmHg ECG Resting ECG: Nsr Stress ECG Conclusion <1.[address] segment changes Non-diagnostic lexiscan stress Electronically signed by : Rima Sellers MD 07/08/2024 21:26:34
--- OUTSIDE RECORDS SUMMARY | 2024-07-05 12:16 | XMS_ITS | Continuity of Care Document ---
Author Organization [facility] Phone Care Team Providers Care Test Specialist Name Role Phone YAYA KRAUS Unavailable YAYA KRAUS Primary Attending YAYA KRAUS Admitting DECLINED, PCP Primary Care Unavailable ALLERGIES AND ADVERSE REACTIONS ALLERGIES AND ADVERSE REACTIONS Code System Allergy Substance Adverse Reaction Date Reaction (Severity) Comment Status Reported By Updated By Shilpi (Free Text Allergy) Adverse reaction to substance Not Specified active [id number] on May 06, 2024 1:26:46 PM [facility] FAMILY HISTORY RELATION: Father Status: Cause of : Multiple malignancy Age at : 84 SNOMED-CT Diagnosis Age At Onset Information not available RELATION: Mother Status: Cause of : Transient cerebral ischemia Age at : 77 SNOMED-CT Diagnosis Age At Onset [id number] Alzheimer's disease RESULTS Patient: SONIA GAN Date of : November [birth year] LABORATORY RESULTS Information is not available LABORATORY NARRATIVE RESULTS Information is not available RADIOLOGY RESULTS ORDER 100: KNEE 2V LT (LOINC : 59218-0) ORDER DATE: June 16, 2024 3:30:00 PM [facility] PERFORMING LAB: [address] [id number] Final Result Date: June 16 3:38:[address] [place] [address] Name: DONNA SCOTT Exam Date: 06/16/2024 : 1955 Age 68 years Gender: F Physician: YAYA KRAUS Facility: [facility] Facility HSV: Outpatient Exam: KNEE 2V LT XR KNEE 2 VIEWS LEFT Reason For Study: . COMPARISON:11/24/2023 TECHNIQUE: 2 views AP and lateral views of the left knee were obtained. FINDINGS Knee replacement remains intact no surrounding fractures or loosening evident. No significant joint effusion. Alignment remains unchanged with minimal valgus deformity. IMPRESSION: Uncomplicated knee replacement. Electronically signed by: Jihan Sifuentes MD 06/18/2024 04:08 PM EDT Dictated By: JIHAN SIFUENTES Transcribed By: Transcribed On: 06/16/2024 11:38 AM Electronically signed by: JIHAN SIFUENTES 06/16/2024 Thank you for referring DONNA SCOTT to [facility]. Legally authenticated by BEAR BOBO MD 2024-06-16 11:38:50 PATHOLOGY NARRATIVE RESULTS Information is not available [...] Description Effective Dates Offered Cessation Comment UpdatedBy [id number] Historical Tobacco smoking status Never Smoked [id number] on May 06, 2024 1:27:05 PM [facility] SOCIAL HISTORY - Gender Sex: Female SOCIAL [...] available. ENCOUNTERS ENCOUNTER INFORMATION Reason for Visit Z47.1 Admission June 16, 2024 2:56:[address] [id number] Discharge June 16, 2024 2:56:00 PM [facility] DISCH ARGED TO HOME OR SELF CARE ENCOUNTER DIAGNOSES Notes information is not queta ilable. Code System Diagnosis Onset Date Diagnosis information is not available. 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 Role on Team Status Start Date End Date Update d By EFRA JAVIER MD Referring normal June 16, 2024 4:00:00 AM [facility] June 16, 2024 2:56:00 PM [facility] [id number] on June 16, 2024 3:01:13 PM [facility] EFRA JAVIER MD Attending normal June 16, 2024 4:00:00 AM [facility] June 16, 2024 2:56:00 PM [facility] [id number] on June 16, 2024 3:01:13 PM [facility] EFRA JAVIER MD Admitting normal June 16, 2024 4:00:00 AM [facility] June 16, 2024 2:56:00 PM [facility] [id number] on June 16, 2024 3:01:13 PM [facility] DECLINED PCP PCP normal June 16, 2024 4:00:00 AM [facility] June 16, 2024 2:56:00 PM [facility] [id number] on June 16, 2024 3:01:13 PM [facility]
--- NOTE | 2024-07-05 12:30 | NM_ITS ---
APPROVED REPORT Exam: Nuclear Stress Test Indication: Pre op, HTN, DM, High cholesterol Patient Location: Outpatient Stress Tech: Miriam Faria IN Tech:ELAINE Mehta RT(R)(N) Ht: 5 ft 6 in Wt: 172 lbs Bra Size: 40B HR: 54 bpm BP: 199/71 mmHg BSA: 1.88 m2 TID: 1.12 BMI: 27.7 History: Pre op, HTN, DM, High cholesterol Procedure: Patient received 0.4 mg of intravenous Lexiscan, resting heart rate 54 bpm, resting blood pressure 199/71 mmHg, with Lexiscan maximum heart rate achieved was 72 bpm which is % of the maximum predicted heart rate and blood pressure was 178/78 mmHg. With Lexiscan, patient denied any complaint of chest pain. Cardiac Stress and Resting SPECT Images: Cardiac Stress and Resting SPECT images were obtained using technetium 99m Myoview 30.7 mCi stress and 10.78 mCi at rest. Resting and stress imaging in supine and prone positions demonstrate no evidence of fixed or reversible perfusion defects. Gated imaging demonstrates normal global and regional LV systolic function. LVEF is calculated at 63%. Conclusion: No evidence of fixed or reversible perfusion defects. Gated imaging demonstrates normal global and regional LV systolic function. LVEF is calculated at 63%. Electronically signed by : Rima Sellers MD 07/08/2024 21:16:53
[2024-07-05] MEDS: REGADENOSON 0.4MG/5ML SYRINGE 0.4 MG IV (14:10)
[2024-07-05] MEDS: ISOTOPE MYOVIEW (PER STUDY) 1 DOSE IV (14:10)
[2024-07-05] MEDS: SODIUM CHLORIDE 0.9% 10ML SYR (RAD ONLY) 10 ML IV ×2 (14:10→14:11)
== END 2024-07-05 23:59 | disposition home or self-care (01) ==
LOC: RAD 12:14
PROVIDERS: PCP Nurse Practitioner; Visit Provider Physician Assistant
DX: Z01.810 Encounter for preprocedural cardiovascular examination (principal); I25.10 Atherosclerotic heart disease of native coronary artery without angina pectoris; I10 Essential (primary) hypertension; E11.9 Type 2 diabetes mellitus without complications; E78.00 Pure hypercholesterolemia, unspecified; R94.31 Abnormal electrocardiogram [ECG] [EKG]
CPT/HCPCS: 78452; 93017; 93018; A9502; J2785

== ENCOUNTER 2024-09-04 16:22 | Inpatient (IN) | payer BC, MEDICARE, SELFPAY ==
[2024-09-04] VITALS (9 sets, daily range): BP systolic 176–215; BP diastolic 61–131; PULSE 60–71; RESP 14–22; TEMP 36.6–36.8; O2SAT 95–98; BMI 34.0
--- NOTE | 2024-09-04 16:25 | ED_ITS ---
<Statement entered by Magdalene Lowe DO - 09/05/24 20:06> I was consulted by the VALDEMAR, and we discussed the complexity of problems being addressed. I approve the treatment and management plan for this patient's care in the emergency department, thus performing a substantial portion of the medical decision making. Magdalene Lowe DO Discharge Plan Disposition Patient Disposition: Admitted Condition: Fair Clinical Impressions Clinical Impression: CHF exacerbation Qualifiers: Heart failure type: diastolic Qualified Code(s): I50.33 - Acute on chronic diastolic (congestive) heart failure Discharge ED Provider: Magdalene Lowe HPI General Chief Complaint: Chest Pain Stated Complaint: blood pressure is high Time Seen by Provider: 09/04/24 16:25 History of Present Illness HPI narrative: Patient presents from cardiology clinic for chest pain headache and elevated blood pressure. Patient has a past medical history of morbid obesity with a BMI of 34, diastolic heart failure, hypertension hyperlipidemia diabetes mellitus. Patient was seen in the cardiology clinic today and was noted to be significantly hypertensive with a systolic blood pressure greater than 200. Patient recently had knee surgery done in [facility] on her left knee. In the perioperative period she was taken off her home medications including Bumex and spironolactone. Patient reports that she has gone from 172 pounds in July when she had her surgery to 211 pounds since. Patient reports dyspnea on exertion prolonged recovery but at baseline does not require oxygen and does not have home oxygen. She denies any fever chills hemoptysis hematochezia melena nausea vomiting diarrhea but reports her legs have been been significantly swollen. She has since restarted all of her home medications however she continues to have elevated blood pressure chest pain daily and a headache. Related Data Previous Rx's ?Medication ?Instructions ?Recorded atorvastatin 40 mg tablet 40 mg PO HS #30 tabs 5 dapagliflozin propanediol 10 mg 10 mg PO DAILY #30 tab s 08/30/24 tablet (Farxiga) spironolactone 25 mg tablet 25 mg PO BIDL #60 tabs bumetanide 1 mg tablet 1 mg PO BID #60 tabs 5 irbesartan 150 mg tablet 150 mg PO BID #60 tabs 09/04 metoprolol succinate 100 mg 100 mg PO DAILY #30 tabs 0 09/04/24 tablet,extended release 24 hr (Toprol XL) Allergies Allergy/AdvReac Type Severity Reaction Status Date / Time pentazocine (From [place]) Allergy Dizziness Verified 09/04/24 16:44 [facility] Disclaimer: The information contained in this section may have been updated after the patient was seen, as this information can be updated by other users. Medical History (Updated 09/04/24 @ 17:39 by GEOVANNY Atwood) Encounter for pre-operative cardiovascular clearance Elevated diaphragm Dyspnea on exertion Pleural effusion, bilateral Right ventricular dilation Tricuspid regurgitation Mitral regurgitation Hypoxemia Acute respiratory failure with hypoxia Edema Asthma Pneumonia Blind right eye Hyperlipidemia Diabetes mellitus CHF (congestive heart failure) Hypertension Surgical History History of tubal ligation History of ERCP H/O: History of left knee replacement Family History Other AD (Alzheimer's disease) Colorectal cancer Social History Smoking Status: Never smoker alcohol intake: never current occupational status: employed Travel in the last 8 weeks?: None Have you lived/traveled outside [place] in past 30 days?: No Contact w/someone who lives/traveled outside US past 30 days?: No Exposure to someone with infectious disease in past 14 days?: No Do you have a fever (greater than 100.4 F or 38 C)?: No Have you tested positive for COVID-19?: No Exposed to someone with COVID-19 in past 14 days?: No Do you have a sore throat?: No Do you have a cough?: No Do you have any weakness?: No Do you have any diarrhea?: No Are you experiencing any unusual bleeding?: No Do you have any muscle aches/pain?: No Do you have any abdominal pain?: No Are you experiencing loss of taste or smell?: No Other Medical History Have you received the Flu Vaccine for this season: No Have you received the Pneumonia Vaccine: Yes ROS Obtained: Yes Systems reviewed as appropriate & no additional complaints except as documented Physical Exam General General appearance: alert and in no apparent distress Respiratory Respiratory exam: Absent respiratory distress Cardiovascular Cardiovascular exam: Present regular rate Neurological Exam Neurological exam: Present alert and oriented X3 HEART Score HEART Score HEART Score assessment performed?: Yes History (anamnesis): Slightly suspicious ECG: Non-specific disturbance Age: >65 years Risk factors: Atherosclerosis history Troponin: </= normal limit HEART Score: 5 Critical Care Critical Care Time Critical Care Time: Yes Attestation: On 09/04/24, the high probability of a clinically significant, sudden or life threatening deterioration of the following system(s) required my full and direct attention, intervention and personal management. The time I documented below is in addition to time spent performing reported procedures but includes the following listed in this critical care notation. Total Time Total Critical Care Time: 30 Medical Decision Making Medical Records Medical records reviewed: Yes I reviewed the patient's medical records. Cole Inquiry Pt receiving controlled substance: No Vital Signs Vital Signs: 09/04/24 16:31 09/04/24 17:00 09/04/24 17:30 Temperature 97.9 F Temperature Source Oral Pulse Rate 63 70 Pulse Rate [Right Brachial] 65 Respiratory Rate 17 14 Blood Pressure 193/74 H 185/131 H Blood Pressure [Right Arm] 215/73 H Blood Pressure Mean [Right Arm] 120 Blood Pressure Source [Right Arm] Automatic Cuff Blood Pressure Position Blood Pressure Position [Right Arm] Sitting 02 Sat by Pulse Oximetry 98 97 95 Oxygen Delivery Method Room Air Room Air Room Air 09/04/24 18:04 09/04/24 19:00 09/04/24 19:31 Temperature Temperature Source Pulse Rate 71 60 62 Pulse Rate [Right Brachial] Respiratory Rate 22 18 20 Blood Pressure 184/64 H 195/74 H 198/76 H Blood Pressure [Right Arm] Blood Pressure Mean [Right Arm] Blood Pressure Source [Right Arm] Blood Pressure Position Blood Pressure Position [Right Arm] 02 Sat by Pulse Oximetry 96 96 96 Oxygen Delivery Method Room Air 09/04/24 20:17 Temperature 97.9 F Temperature Source Oral Pulse Rate 62 Pulse Rate [Right Brachial] Respiratory Rate 20 Blood Pressure 198/76 H Blood Pressure [Right Arm] Blood Pressure Mean [Right Arm] Blood Pressure Source [Right Arm] Blood Pressure Position Sitting Blood Pressure Position [Right Arm] 02 Sat by Pulse Oximetry Oxygen Delivery Method Room Air Lab Data Lab results reviewed: Yes I reviewed the patient's lab results. Labs: Lab Results 09/04/24 16:36: WBC 6.2, RBC 4.08 L, Hgb 12.2, Hct 36.8 L, MCV 90.2, MCH 29.9, MCHC 33.2, RDW 13.1, Plt Count 113 L, MPV 10.9 H, Neut % (Auto) 61.5, Lymph % (Auto) 28.0, [facility] % (Auto) 6.9, Eos % (Auto) 2.7, Baso % (Auto) 0.6, Neut # (Auto) 3.8, Lymph # (Auto) 1.8, [facility] # (Auto) 0.4, Eos # (Auto) 0.2, Baso # (Auto) 0.0, D-Dimer 1.25 H, Sodium 140, Potassium 3.6, Chloride 105, Carbon Dioxide 30, Anion Gap 8.6, BUN 17, Creatinine 1.50 H, Estimated Creat Clear 54, Estimated GFR 35 L, Est GFR ( Amer) 42 L, Glucose 134 H, Calcium 8.6, Total Bilirubin 1.2, AST 37 H, ALT 17, Alkaline Phosphatase 134 H, Troponin I < 0.01, C-Reactive Protein 1.4, NT-Pro-B Natriuret Pep 5020 H 09/04/24 16:36: NT-Pro-B Natriuret Pep 4820 H, Total Protein 6.4, Albumin 3.6, Globulin 2.8, Albumin/Globulin Ratio 1.3, TSH 5.18 H, Free T4 Index 4.2 L, T hyroxine (T4) 12.1 H, T3 Uptake 35 09/04/24 19:17: Troponin I < 0.01 09/04/24 16:36 09/04/24 16:36 Response Orders (Tests/Meds): ED MEDICATIONS Generic Name Dose Route Start Last Admin Trade Name Freq PRN Reason Stop Dose Admin Acetaminophen 650 mg 09/04/24 19:24 Acetaminophen 325mg Tab PO 10/04/24 19:23 Q4HP PRN Fever or Mild Pain (1-3) Albuterol/Ipratropium 3 ml 09/04/24 20:08 Ipratropium/Albuterol 3 Ml Neb IH 10/04/24 20:07 Q4HP PRN Shortness Of Breath Enoxaparin Sodium 40 mg 09/05/24 09:00 Enoxaparin 40mg/0.4ml Syringe SUBCUT 10/05/24 08:59 DAILY JUANI Bumetanide 10 mg/ Sodium 100 mls @ 5 mls/hr 09/04/24 17:03 09/04/24 17:53 Chloride IV 10/04/24 17:02 5 mls/hr .Q20H JUANI Administration Ondansetron HCl 4 mg 09/04/24 19:24 Ondansetron 4mg/2ml Vial IV 10/04/24 19:23 Q8HP PRN Nausea Pantoprazole Sodium 40 mg 09/04/24 21:00 Pantoprazole 40mg Tablet PO 10/04/24 20:59 HS JUANI Sodium Chloride 10 ml 09/04/24 18:05 09/04/24 18:06 Sodium Chloride 0.9% 10ml Syr (Rad Only) IV 10/04/24 18:04 10 ml NEEDED PRN Administration Maintain IV Site Discontinued Medications Generic Name Dose Route Start Last Admin Trade Name Freq PRN Reason Stop Dose Admin Acetaminophen 1,000 mg 09/04/24 16:29 09/04/24 17:00 Acetaminophen 500mg Tab PO 09/04/24 16:30 1,000 mg ONCE ONE Administration Bumetanide 1 mg 09/04/24 17:03 09/04/24 17:21 Bumetanide 1mg/4ml Vial IV 09/04/24 17:04 1 mg ONCE ONE Administration Dexamethasone Sodium Phosphate 10 mg 09/04/24 16:29 09/04/24 17:01 Dexamethasone 4mg/Ml 5ml Mdv IV 09/04/24 16:30 10 mg ONCE ONE Administration Diphenhydramine HCl 50 mg 09/04/24 16:29 09/04/24 17:02 Diphenhydramine 50mg/Ml Vial IV 09/04/24 16:30 50 mg ONCE ONE Administration Sodium Chloride 1,000 mls @ 999 mls/hr 09/04/24 16:29 09/04/24 16:59 Sod Chlor 0.9% 1000ml Bag IV 09/04/24 17:29 999 mls/hr .Q1H1M ONE Administration Iopamidol 70 ml 09/04/24 18:05 09/04/24 18:07 Iopamidol-370 (76%);100ml Bottle IV 09/04/24 18:06 70 ml ONCE ONE Administration Methocarbamol 500 mg 09/04/24 16:29 09/04/24 17:01 Methocarbamol 500mg Tablet PO 09/04/24 16:30 500 mg ONCE ONE Administration Prochlorperazine Edisylate 2.5 mg 09/04/24 16:29 09/04/24 17:01 Prochlorperazine 10mg/2ml Vial IV 09/04/24 16:30 2.5 mg ONCE ONE Administration Sodium Chloride 50 ml 09/04/24 18:05 09/04/24 18:07 0.9 % Sodium Chloride 50 Ml Vial IV 09/04/24 18:06 50 ml ONCE ONE Administration ORDERS Category Date Time Status CT angio chest PE protocol Stat Cat Scan 09/04/24 17:20 Completed XR chest portable Stat Exams 09/04/24 16:38 Completed BNP [NT Pro Brain Natriuretic Pep.] Routine Lab 09/05/24 06:27 Ordered BNP [NT Pro Brain Natriuretic Pep.] Stat Lab 09/04/24 16:36 Completed BNP [NT Pro Brain Natriuretic Pep.] Stat Lab 09/04/24 16:36 Completed CBC w/Auto Diff [Complete Blood Count Auto Diff] Stat Lab 09/04/24 16:36 Completed CMP [Comprehensive Metabolic Panel] Stat Lab 09/04/24 16:36 Completed CRP [C-Reactive Protein] Stat Lab 09/04/24 16:36 Completed Complete Blood Count Auto Diff AMLAB Lab 09/05/24 06:00 Ordered Comprehensive Metabolic Panel AMLAB Lab 09/05/24 06:00 Ordered D-Dimer Stat Lab 09/04/24 16:36 Completed Magnesium AMLAB Lab 09/05/24 06:00 Ordered Thyroid Panel Stat Lab 09/04/24 16:36 Completed Trop I [Troponin I] Stat Lab 09/04/24 16:36 Completed Troponin I Q3H Lab 09/04/24 19:17 Completed Troponin I Q3H Lab 09/04/24 22:45 Ordered ECG Request Routine Y 09/05/24 06:24 Ordered MDM Narrative Medical Decision Narrative: In summary patient is a 68-year-old female who presents to the emergency department for evaluation of chest pain headache and significant hypertension. Patient is initially hypertensive on arrival with a blood pressure of 215/73 heart rate 65 with sinus rhythm on the bedside monitor breathing 17 times minute satting at 98% on room air upon arrival, afebrile at 97.9. Physical exam is remarkable for a very pleasant well-nourished well-developed 68-year-old female who is currently in no acute distress. BMI is 34. Breath sounds clear in the left lung lewis however there are diminished in the right base without adventitious sounds or increased work of breathing. Chest has no reproducible pain on palpation cardiac is S1 is 2 regular rate and rhythm without murmurs gallops rubs or thrills. Abdomen is obese but soft nontender no rebound or guarding no rigidity. Patient has 3+ pitting edema to the level of her thighs bilaterally. She does however have palpable pulses briskly bilaterally.. Differential diagnosis includes ACS versus CHF versus pulmonary artery hypertension versus pneumonia versus malignant hypertension etc. Initial workup will be conducted with hematologic labs twelve-lead EKG plain film chest x-ray. Initial interventions were considered including supplemental O2 but for now we will order continuous cardiac monitoring and continuous pulse oximetry. Initial workup reviewed by me and her hematologic labs significant for a white count of 6.2 normal H&H with no neutrophilic shift, D-dimer is 1.25, creatinine is 1.5 GFR is 35 AST is 37 and alk phos is 134. Initial troponin is undetectable NT proBNP is 4820 TSH is 5.18 and my informal interpretation of her chest x-ray shows a significant right pleural effusion prior to radiology read. Given her elevated D-dimer and pleural effusion I ordered CTA PE protocol. My informal interpretation of her CTA shows no thrombus but shows moderate to large right pleural effusion with basilar compressive atelectasis and also a smaller left pleural effusion and a small pericardial effusion prior to radiology read. Please see final read form interpretation. Given this I have ordered a Bumex drip and then had a interactive discussion with hospital medicine regarding patient presentation HAZEL and management and she will be admitted for further evaluation and care.
--- OUTSIDE RECORDS SUMMARY | 2024-09-04 16:30 | XMS_ITS | Clinical Summary ---
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 90 tablet 3 01/09/20 24 Active triamterene-hydroc hlorothiazide (MAXZIDE-25) 37.5-25 MG per tabletIndications: Primary hypertension Take 1 tablet by mouth Daily. 90 tablet 3 01/09/20 24 Active bumetanide (BUMEX) 1 MG tabletIndications: Bilateral lower extremity edema Take one tablet by mouth daily and if patient has a weight gain in 24 hours of 3 pounds, she is to take an extra dose 90 tablet 1 04/18/19 25 Active clindamycin 1 % gelIndications:Per ioral dermatitis Apply 1 Application topically to the appropriate area as directed 2 (Two) Times a Day. 30 g 04/18/19 25 Active potassium chloride 10 MEQ CR tabletIndications: Bilateral lower extremity edema Take 1 tablet by mouth Take As Directed. Take potassium only when taking Bumex (bumetanide) 90 tablet 3 04/19/19 25 Active Active Problems Problem Noted Date Diagnosed Date Impaired functional mobility, balance, gait, and endurance 07/04/2024 Perioral dermatitis 04/17/2024 Assessment & Plan (04/17/2024 11:23 AM EST): She recently developed a perioral dermatitis that will not heal. She stopped taking Bumex because she felt like it was drying her out and because the skin lesion. Tricuspid regurgitation 04/17/2024 Assessment & Plan (04/17/2024 11:26 AM EST): Moderate tricuspid regurgitation noted on echocardiogram today. We will need to monitor closely with annual echoes. She denies current cardiac symptoms. - Repeat echo in 1 year Murmur, diastolic 03/09/2024 Assessment & Plan (03/19/2024 10:32 AM EST): Newly identified heart murmur and elevated BNP - Echocardiogram for further evaluation Assessment & Plan (03/09/2024 5:35 PM EST): Patient found to have a new onset murmur in office today, felt to be diastolic, best heard at the apex. Patient has normal EKG, denies any shortness of breath or chest pain. Will refer to cardiology for further evaluation given this newfound murmur is also in the presence of an elevated BNP and bilateral lower extremity edema Elevated brain natriuretic peptide (BNP) level 0 03/09/2024 Assessment & Plan (03/09/2024 5:33 PM EST): Patient noted to have elevated BNP of 1222 on lab draw last week, this was prior to administration of Bumex. Patient's edema has improved but nowhere close to fully resolving. I am going to give her Bumex 1 mg once daily for further improvement of her bilateral lower extremity edema. Patient is advised that she should weigh herself daily and take an extra dose for any weight gain of 3 pounds or greater in 24- hour. Stage 3a chronic kidney disease 03/02/2024 Assessment & Plan (03/05/2024 12:51 PM EST): Patient with longstanding stage IIIa chronic kidney disease with baseline creatinine of 1.2-1.3. Recheck CMP today Bilateral lower extremity edema 02/10/2024 Assessment & Plan (04/17/2024 11:25 AM EST): Echocardiogram shows an LVEF of 61-65% and moderately elevated RVSP. - Recommend restarting Bumex 1 mg daily. Patient agrees to try taking it every other day instead. She is not currently taking a potassium supplement due to also taking triamterene. We will need to monitor labs closely. Assessment & Plan (03/19/2024 10:34 AM EST): Significant edema noted on exam today, patient reports improvement since starting Bumex. - Check echocardiogram - Elevate extremities as much possible - Compression stockings as tolerated - May need to increase Bumex dose after echo Assessment & Plan (03/09/2024 5:34 PM EST): Patient initially presented to my office 3 weeks ago with complaints of left lower extremity edema. On physical exam there was concern for DVT of the left lower extremity due to severe unilateral swelling leading, warmth of calf and pain. Fortunately, her ultrasound was found to be normal. Three days after her initial visit patient contacted the office stating that her left leg had continued to swell but now her right leg had also began to swell. At that time patient was advised to go to the ER but stated she would rather not. Subsequently I called her in a prescription for Lasix 20 mg daily to be initiated for 4 days. Patient endorsed that she did not feel really any urinary response to the Lasix. She had continued to elevate her legs is much as possible without any improvement in her edema, not even at first thing upon awakening in the morning. We conducted an EKG in the office which has been normal. We obtained urinalysis to evaluate for proteinuria as well as CMP to evaluate her renal function. Patient's renal function is stable, she was noted to have some mild proteinuria on urinalysis. Patient was initiated on Bumex 4 days ago, regimen consisted of 2 tablets by mouth once daily for 3 days, followed by 1 tablet by mouth once daily for 3 days. Patient returns today with a 6 pound weight loss, edema has improved but still substantial. -Will implement Bumex 1 mg daily. Patient may utilize second dose for weight gain of greater than 3 pounds in 24 hours Assessment & Plan (03/05/2024 12:49 PM EST): Patient initially presented to my office two weeks ago with complaints of left lower extremity edema. On physical exam there was concern for DVT of the left lower extremity due to severe unilateral swelling, warmth of calf and pain. Fortunately her ultrasound was found to be normal. 3 days after her initial visit patient contacted the office stating that her leg with swelling more in the right leg has started to swell despite elevation. Patient was advised to go to the ER but stated she would rather not. At that time I sent prescription for Lasix 20 mg daily to be initiated for 4 days. Patient states that she did not feel she had hardly any urinary response to the Lasix. Patient continues to elevate her legs is much as possible and notes minimal improvement overnight. -EKG in office normal today -Will obtain urinalysis to evaluate for proteinuria as well as CMP to evaluate renal function. -Initiate patient's on Bumex. Patient is to take 2 tablets by mouth once daily for 3 days followed by 1 tablet by mouth once daily for 3 days. She will follow-up in the office in 1 week for further evaluation Assessment & Plan (02/10/2024 5:34 PM EST): On physical exam concern for DVT of the left lower extremity due to severe unilateral swelling, warmth and calf pain. [facility] unable to schedule patient for outpatient duplex today. Will contact her with first available spot. Patient advised if symptoms worsen or she develops shortness of breath report to the emergency department for immediate attention at which time they can do a Doppler at the bedside. S/P TKR (total knee replacement), left Assessment & Plan (2023 9:45 AM EDT): Patient is 12 weeks postop from left total knee replacement performed by Dr. Armijo. She has had a very uncomplicated postoperative course and states that she is experience full resolution of the knee pain. Annual physical exam 05/10/2023 Medicare annual wellness visit, subsequent 05/09 Bruising 02/09/2023 Assessment & Plan (02/09/2023 7:39 PM EST): Patient voicing concerns in regard to unexplained bruising. Patient reports what she feels is spontaneous bruises on bilateral forearms. She cannot recall any trauma and is not on any type of blood thinner. -Check CBC Chronic diarrhea 02/09/2023 Assessment & Plan (05/10/2023 7:39 PM EDT): Patient presented approximately 3 months ago with complaints of abdominal pain, diarrhea. This was preceded by some dental work a couple of weeks before. She noted initial days after her procedure she did well, however on January 14 she became and able to eat solid foods without getting sick. She noted feelings of constant sinus drainage, intermittent abdominal chest and subscapular pain. She noted the pain was intense but not prolonged. At that point she can only tolerate soft drinks, tea and orange juice. She had been experiencing significant diarrheal stools on average 6 times daily. H pylori was negative as well as stool for ova and parasite, no C. difficile. She was sent to Dr. Gee for routine colonoscopy but states that she improved with use of probiotic. Assessment & Plan (02/09/2023 7:46 PM EST): presents today for complaints of abdominal pain, diarrhea, and left scapular pain. Patient begins by stating she underwent dental work January 10. Patient states she had extensive infection above her top gums with subsequent extraction of all her top teeth. She also required removal of one tooth on the bottom after being told their was a cyst underneath the gum that could cause problems. The procedure was followed a strong course of antibiotics, amoxicillin and azithromycin. Patient reports in the initial days after he procedure she did well, was eating soft food normally and didn't even experience in significant post procedural pain, swelling or bruising. She states on January 14 she became unable to eat solid foods without getting sick. She notes feelings of constant sinus drainage. She says now over the last 1-2 weeks she has began to experience intermittent abdominal, chest, and subscapular pain. She describes the pain as intense but not prolonged. She states while she has not been able to tolerate food, soft drinks, tea, orange juice are fine. Patient has been experiencing significant diarrheal stools, on average six times daily. She denies any bloody stool. -Obtain GI stool panel including Ova, parasite and c-diff -obtain h pylori -Patient due for routine colonoscopy with Dr. Gee, if testing inconclusive will send to Dr. Gee for further evaluation and treatment. Generalized abdominal pain 02/09/2023 Chest pain 02/09/2023 Assessment & Plan (02/09/2023 7:48 PM EST): Patient with complaints of vague, quick, sharp chest pain. No accompanying SOB or edema. Denies any crushing chest pain or pressure. Pain is not constant. EKG showing some sinus tachycardia, likely component of dehydration with GI losses and decreased intake. Controlled type 2 diabetes antwan winslow without complication, without long-term current use of insulin 12/25/2021 Assessment & Plan (03/05/2024 12:50 PM EST): Patient has lost a significant amount of weight after some GI issues in the fall. She had resume checking her glucose at home regularly with readings in the 60s in recent days. She continues to take Janumet 50-1000 mg twice daily with meals. Her A1c in office today is 4.3%. Nory Jefferson Assessment & Plan (2023 9:48 AM EDT): Is losing weight patient is not checking her glucose at home, currently utilizing glipizide 5 mg daily as well as Janumet 50-1000 mg twice daily. Her A1c in office is excellent, 5.4%. Patient advised she can hold glipizide while continuing to monitor her glucose. If notice glucose is increasing may restart glipizide. Will recheck A1c in 3 months. Assessment & Plan (05/10/2023 8:05 PM EDT): Checking glucose one or twice weekly . Getting readings 188 average. She has lost upwards of 30lbs over the last three months. Last A1C three months ago was 6.9%. Rechecking A1C with labs today. Diabetic foot exam performed in office today and satisfactory. Eye exam up to date as well -Continue janumet 50-1000mg tablet BID Assessment & Plan (02/09/2023 7:42 PM EST): Diabetes historically well controlled with last A1c 3 months ago 6.6%. Today, A1C 6.9%. She notes she has not been taking her meds as directed due to not eating. She does not monitor her glucose at home. She is encouraged to do so at least a few times a week. Continue current medication 1. Glipizide ER 5 mg once daily 2. Janumet mg once daily. Assessment & Plan (07/09/2022 12:13 PM EDT): Diabetes historically well controlled with last A1c 3 months ago 6.6%. She does not monitor her glucose at home. She is encouraged to do so at least a few times a week. Continue current medication 1. Glipizide ER 5 mg once daily 2. Janumet mg once daily Assessment & Plan (12/25/2021 3:10 PM EST): Diabetes controlled with A1C 6.6%, goal less than 7.0. She is not checking home glucose. Encouraged to do so at least a few times weekly. Continue current meds: 1. Glipizide ER 5 mg once daily 2. Janumet mg once daily 3. She has appointment with Dr. rAmijo regarding her knee and ankle pain, hopes to get some resolution so she can focus on exercise for weight loss Hyperlipidemia 12/25/2021 Assessment & Plan (2023 9:48 AM EDT): Lysing atorvastatin 40 mg nightly with adequate control of lipids on last check Assessment & Plan (05/10/2023 8:07 PM EDT): Patient utilizing atorvastatin 40mg nightly. Rechecking lipids today Assessment & Plan (02/09/2023 7:42 PM EST): Lipid panel satisfactory on atorvastatin 40mg daily. Assessment & Plan (07/09/2022 12:12 PM EDT): Last lipid panel obtained in May 2021 with satisfactory results. Rechecking lipid panel today. Utilizing Lipitor 40 mg once daily Assessment & Plan (12/25/2021 3:08 PM EST): Lipid panel obtained May 2021 with satisfactory results Continue lipitor 40mg daily for now Hypertension 12/25/2021 Assessment & Plan (03/05/2024 12:51 PM EST): Patient reports blood pressure 112/60 on average. Blood pressure obtained by [employer] on presentation in office today is 180/80, however when rechecked by myself 118/72. Will hold amlodipine 5 mg daily. Continue triamterene/HCTZ 37.5-25 mg daily as well as valsartan 80 mg daily for now. Bring home blood pressure log for review in 1 week Assessment & Plan (02/10/2024 5:35 PM EST): Patient currently utilizing regimen of amlodipine 5 mg daily and triamterene/HCTZ 37.5-25 mg daily. Also using valsartan 80 mg daily. Assessment & Plan (2023 9:47 AM EDT): Patient's blood pressure within acceptable range in office today, 128/82. Continue amlodipine 5 mg daily as well as valsartan 80 mg daily. Patient also utilizing triamterene/HCTZ 37.5-25 mg daily Assessment & Plan (05/10/2023 8:08 PM EDT): 122-128/70s at home. Continue amlodipine 5mg daily and triamterene-HCTZ 37.5,g- 25mg daily, continue valsartan 80mg daily Assessment & Plan (02/09/2023 7:43 PM EST): Recently has been controlled on current medication 1. Continue amlodipine 5 mg once a 2. Continue triamterene HCTZ 37.5-25 mg once daily 3. Continue valsartan 80 mg once daily. Assessment & Plan (07/09/2022 12:11 PM EDT): Recently has been controlled on current medication 1. Continue amlodipine 5 mg once a 2. Continue triamterene HCTZ 37.5-25 mg once daily 3. Continue valsartan 80 mg once daily Assessment & Plan (12/25/2021 3:07 PM EST): Well controlled on current medications. She is not checking her BP at home. Continue current medications. Encouraged to implement home BP monitoring 1. Amlodipine 5 mg daily to be continued 2. Triamterene/HCTZ 37.5/25, to be continued 3. Valsartan 80 mg daily to be continued Morbid (severe) obesity due to excess calories 1 02/24/2021 Assessment & Plan (2023 9:47 AM EDT): Patient's (Body mass index is 33.95 kg/m .) indicates that they are obese (BMI >30) with health conditions that include hypertension and diabetes mellitus . Weight is improving with lifestyle modifications. BMI is above average; BMI management plan is completed. We discussed portion control and increasing exercise. Patient has had a weight loss of approximately 50 pounds over the last several months. Patient's weight loss began after having all of her teeth extracted, just after that she experienced a bout of gastritis causing further weight loss. Patient states after that. She just never really was able to hold as much food as she once did. Assessment & Plan (05/10/2023 8:08 PM EDT): Patient's (Body mass index is 37.61 kg/m .) indicates that they are obese (BMI >30) with health conditions that include hypertension, diabetes mellitus, and dyslipidemias . Weight is improving with lifestyle modifications. BMI is above average; BMI management plan is completed. We discussed portion control and increasing exercise. Assessment & Plan (02/09/2023 7:43 PM EST): Patient's (Body mass index is 41.1 kg/m .) indicates that they are morbidly/severely obese (BMI > 40 or > 35 with obesity - related health condition) with health conditions that include hypertension, diabetes mellitus, and dyslipidemias . Weight is unchanged. BMI is above average; BMI management plan is completed. We discussed portion control and increasing exercise. Assessment & Plan (07/09/2022 12:11 PM EDT): Patient's (Body mass index is 42.33 kg/m .) indicates that they are morbidly/severely obese (BMI > 40 or > 35 with obesity - related health condition) with health conditions that include hypertension and diabetes mellitus . Weight is unchanged. BMI is above average; BMI management plan is completed. We discussed portion control and increasing exercise. Assessment & Plan (12/25/2021 3:08 PM EST): Patient's (There is no height or weight on file to calculate BMI.) indicates that they are morbidly obese (BMI > 40 or > 35 with obesity - related health condition) with health conditions that include hypertension and diabetes mellitus . Weight is unchanged. BMI is is above average; BMI management plan is completed. We discussed portion control and increasing exercise. 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 from Last 3 Months Immunizations Immunization Administration Dates Next Due COVID-19 (PFIZER) Purple Cap Monovalent 05/20/19 21,04/27/2020 COVID-19 (UNSPECIFIED) 12/20/2020 Flublok 18+yrs 12/21/2019 Fluzone High-Dose 65+YRS 01/20/2024 Fluzone High-Dose 65+yrs 12/24/2022,12/25/2021 Influenza Seasonal Injectable 10/26/2016 Influenza, Unspecified 11/06/2020,10/26/2016 Pneumococcal Conjugate 13-Valent (PCV13) 020 Pneumococcal Polysaccharide (PPSV23) 01/28/2017 Zostavax 03/02/2016,02/28/2016 Family History Medical History Relation Name Comments Cancer Father Other Mother Relation Name Status Comments Father Mother Social History Tobacco Use Types Packs/Day Years Used Date Smoking Tobacco: Never Passive Smoke Exposure: Current Smokeless Tobacco: Never Tobacco Cessation:Counseling Given: Not Answered Alcohol Use Standard Drinks/Week Comments Never 0 (1 standard drink = 0.6 oz pur e alcohol) PHQ-2 Answer Date Recorded Retired PHQ-9: Brief Depression Severity Measure Score 0 07/09/2022 PHQ-2 Answer Date Recorded Patient Health Questionnaire-2 Score 0 03/09/2024 Comments No Sex and Gender Information Value Date Recorded Sex Assigned at Not on file Legal Sex Female 11:33 AM EDT Gender Identity Not on file Sexual Orientation Not on file Last Filed Vital Signs Vital Sign Reading Time Taken Comments Blood Pressure 136/66 04/17/2024 9:47 AM EST Pulse 82 04/17/2024 9:47 AM EST Temperature 36.3 C (97.4 F) 03/09/2024 12:55 PM EST Respiratory Rate 16 03/09/2024 12:55 PM EST Oxygen Saturation 99% 04/17/2024 9:47 AM EST Inhaled Oxygen Concentration - - Weight 97.1 kg (214 lb) 04/17/2024 9:47 AM EST Height 165.1 cm (5' 5 ) 04/17/2024 9:47 AM EST Body Mass Index 35.61 04/17/2024 9:47 AM EST Plan of Treatment Health Maintenance Due Date Last Done Comments URINE MICROALBUMIN-CREATININ E RATIO (uACR) 11/27/1965 TDAP/TD VACCINES (1 - Tdap) 11/27/1974 COLOGUARD 11/27/2000 COLON CANCER SCREENING 5 YEA R SIGMOIDOSCOPY 11/27/2000 CT COLONOGRAPHY 11/27/2000 FECAL OCCULT BLOOD TEST 11/27/2000 FIT Testing (1 year) 11/27/2000 ZOSTER VACCINE (2 of 3) 04/27/2016 03/02/2016, 02/27 MAMMOGRAM 11/12/2019 11/11/2017 DXA SCAN 08/04/2020 08/04/2018 COVID-19 Vaccine (4 - 2023-2 5 season) 2023 12/20/2020, 05/19/2020, 04/27/2020 DIABETIC EYE EXAM 02/10/2024 02/09/2023 ANNUAL WELLNESS VISIT 05/08/2024 05/09/2023 DIABETIC FOOT EXAM 05/08/2024 05/09/2023, 05/09/2023 LIPID PANEL 05/15/2024 05/16/2023, 04/0 02/2023, 07/09/2022 HEMOGLOBIN A1C 08/30/2024 03/02/2024, 07/06/2023, 05/16/2023, Additional history exists INFLUENZA VACCINE 11/14/2024 01/20/2024, , 12/24/2022, Additional history exists Pneumococcal Vaccine 50+ (3 of 3 - PCV20 or PCV21) 12/20/2024 12/21/2019, 01/28/2017 COLONOSCOPY 03/23/2028 03/23/2023, 11/17/2017 COLORECTAL CANCER SCREENING 03/23/2028 HEPATITIS C SCREENING Completed 07/09/2022 Procedures Procedure Name Priority Date/Time Associated Diagnosis Comments SCANNED - IMAGING 08/30/2024 SCANNED - IMAGING 08/02/2024 SCANNED - LABS 07/17/2024 SCANNED - IMAGING 07/17/2024 POCT GLYCOSYLATED HEMOGLOBIN (HGB A1C) Routine 03/02/2024 12:59 PM EST Controlled type 2 diabetes mellitus without complication, without long-term current use of insulin LIPID PANEL Routine 05/16/2023 9:57 AM EDT SCANNED - COLONOSCOPY 03/23/2023 HEPATITIS C ANTIBODY Routine 07/09/2022 12:04 PM EDT Hyperlipidemia, unspecified hyperlipidemia type SCANNED - DEXA Routine 08/04/2018 HM MAMMOGRAPHY Routine 11/11/2017 from Last 3 Months or Most Recently Relevant to Health Maintenance Results * IMAGING SCANNED (08/30/2024) Only the most recent of3 resultswithin the time period is included. Anatomical Region Laterality Modality Radiographic Heide ging Catherine Morales APRN IMG DIAGNOSTIC IMAGING ORDE RABLES Final Result * LABS SCANNED (07/17/2024) Catherine Morales APRN LAB BLOOD ORDERABLES Final Result * POC Glycosylated Hemoglobin (Hb A1C) (03/02/2024 12:59 PM EST) Hemoglobin A1C 4.9 4.5 - 5.7 % [facility] Lot Number [id number] [facility] Expiration Date ,196 [facility] Blood 03/02/2024 12:5 9 PM EST Catherine Morales APRN POINT OF CARE TEST ORDERABL ES Final Result [facility]
[address] [place] [address], * Lipid Panel (05/16/2023 9:57 AM EDT) Total Cholesterol 161 100 - 199 mg/dL [facility] Triglycerides 107 0 - 149 mg/dL [facility] HDL Cholesterol 64 >39 mg/dL [facility] VLDL Cholesterol Jerzy 19 5 - 40 mg/dL [facility] LDL Chol Calc (NIH) 78 0 - 99 mg/dL [facility] 05/16/2023 9:57 AM EDT 05/16/2023 Narrative [facility] ([facility]) - 05/17/2023 8:08 AM EDT Performed at: 01 - [facility] [id number] Licensing And Registration Director: Manny Muñoz PhD, Phone: [phone] Catherine Morales APRN LAB BLOOD ORDERABLES Final Result [facility] (AM[facility]ULATORY) [address] [place] [address], [place] [phone] [facility] [address] [place] [address], [place] [phone] * SCANNED - COLONOSCOPY (03/23/2023) us Catherine Morales APRN CHART REVIEW TABS Final Result * Hepatitis C Antibody (07/09/2022 12:04 PM EDT) Hep C Virus Ab Non Reactive Non Reactive [facility] Comment: HCV antibody alone does not differentiate between previously resolved infection and active infection. Equivocal and Reactive HCV antibody results should be followed up with an HCV RNA test to support the diagnosis of active HCV infection. Blood Structure of left upper limb / Unknown 07/09/2022 12:04 PM EDT 07/10/2022 Comment:Blood Release to anurag varela [facility] (AMBULATORY) - 07/10/2022 8:09 AM EDT Performed at: 01 - [facility] [address] [place] [id number] Licensing And Registration Director: Manny Muñoz PhD, Phone: [phone] Catherine Morales APRN LAB BLOOD ORDERABLES Final Result [facility] [address] [place] [address], 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
--- OUTSIDE RECORDS SUMMARY | 2024-09-04 16:30 | XMS_ITS | Encounter Summary ---
Author Organization [facility] Address [address] [place] [address] Care Team Providers Care Profiling Machine Setup Operator Name Role Phone Catherine Morales FANNY Primary Care Provider [phone] Reason for Visit * Reason Onset Date Comments Appointment 07/26/2024 Encounter Details Date Type Department Care Team (Late st Contact Info) Description 07/26/2024 Telephone [facility] [address] [place] [address] [place] [phone] Taylor Pablo Appointment Social History Tobacco Use Types Packs/Day Years Used Date Smoking Tobacco: Never Passive Smoke Exposure: Current Smokeless Tobacco: Never Alcohol Use Standard Drinks/Week Comments Never 0 [...] on file Sexual Orientation Not on file documented as of this encounter Miscellaneous Notes * Telephone Encounter - Taylor Pablo - 08/01/2024 8:51 AM EDTSummary: FOLLOW UP NEEDED PT WAS CALLED TO GET A 6MO FOLLOW UP FOR HER DIABETES, SINCE PT NOT SEEN SINCE 02/2024 AND SHE HAS NOT HAD RECENT LABS/UACR. PT STATED SHE DID NOT WANT TO SCHEDULE A FOLLOW UP. PATIENT MUST HAVE FOLLOW UP PRIOR TO REFILLS BEING SENT IN. documented in this encounter Plan of Treatment Not on file documented as of this encounter Visit Diagnoses Not on filedocumented in this encounter Care Teams Profiling Machine Setup Operator Relationship Specialty Start Date End Date Catherine Morales APRN [address] [phone] PCP - General Family Medicine 11/30/21 documented as of this encounter
--- NOTE | 2024-09-04 16:38 | XR_ITS ---
PROCEDURE INFORMATION: Exam: XR Chest Exam date and time: 09/04/2024 4:52 PM Age: 68 years old Clinical indication: Pain; Other: Cp; Additional info: Chest pain TECHNIQUE: Imaging protocol: Radiologic exam of the chest. Views: 1 view. COMPARISON: CR XR CHEST 2V 06/15/2024 2:03 PM FINDINGS: Lungs: Opacity in the right base may represent atelectasis or pneumonia.. Pleural spaces: There may be mild bilateral pleural effusions.. Heart/Mediastinum: Unremarkable. No cardiomegaly. Bones/joints: Unremarkable. IMPRESSION: 1. Opacity in the right base may represent atelectasis or pneumonia.. 2. There may be mild bilateral pleural effusions..
--- NOTE | 2024-09-04 16:40 | PC.NURSE ---
Attempted IV x 1 without success
[2024-09-04 16:52] LABS: Hematocrit 36.8 % (37.0-47.0); Hemoglobin 12.2 g/dL (12.2-16.2); Immature Granulocytes % 0.3 %; Mean Corpuscular HGB Conc 33.2 g/dL (31.8-35.4); Mean Corpuscular Hemoglobin 29.9 pg (27.0-31.2); Mean Corpuscular Volume 90.2 fl (81-99); Nucleated Red Blood Cells % 0 %; Platelet Count 113 K/mm3 (142-424); Red Blood Count 4.08 M/mm3 (4.20-5.40); Red Cell Distribution Width-SD 42.8 fL; White Blood Count 6.2 K/mm3 (4.8-10.8)
[2024-09-04 16:58] LABS: Alanine Aminotransferase 17 U/L (12-78); Albumin Level 3.6 g/dl (3.5-5.0); Albumin/Globulin Ratio 1.3 (1.1-1.8); Alkaline Phosphatase 134 U/L (38-126); Anion Gap 8.6 mEq/L (5-15); Aspartate Amino Transferase 37 U/L (14-36); Bilirubin,Total 1.2 mg/dl (0.2-1.3); Blood Urea Nitrogen 17 mg/dl (7-17); Calcium 8.6 mg/dl (8.4-10.2); Carbon Dioxide 30 mmol/L (22.0-30.0); Chloride 105 mmol/L (98-107); Creatinine Clearance Estimated 54 mL/min (50-200); Creatinine,Serum 1.50 mg/dl (0.52-1.04); Estimated Glomerular Filt Rate 35 ml/min (>60); GFR (African American) 42 ML/MIN (>60); Globulin 2.8 g/dL (1.3-3.2); Glucose 134 mg/dl (74-100); Potassium 3.6 mmoL/L (3.5-5.1); Sodium 140 mmol/L (136-145); Total Protein,Serum 6.4 g/dl (6.3-8.2)
[2024-09-04] MEDS: 0.9 % SODIUM CHLORIDE 1000ML 1,000 ML 999 ML IV (16:59)
[2024-09-04] MEDS: ACETAMINOPHEN 500MG TAB 1000 MG PO (17:00)
[2024-09-04] MEDS: PROCHLORPERAZINE 10MG/2ML VIAL 2.5 MG IV (17:01)
[2024-09-04] MEDS: DEXAMETHASONE 4MG/ML 5ML MDV 10 MG IV (17:01)
[2024-09-04] MEDS: METHOCARBAMOL 500MG TABLET 500 MG PO (17:01)
[2024-09-04 17:04] LABS: C-Reactive Protein 1.4 mg/L (0-4); D-Dimer 1.25 ug/mL (0.0-0.5)
[2024-09-04 17:13] LABS: NT Pro Brain Natriuretic Pep. 5020 pg/mL (0-125)
[2024-09-04 17:16] LABS: Troponin I < 0.01 ng/ml (0.00-0.034)
--- NOTE | 2024-09-04 17:20 | CT_ITS ---
PROCEDURE INFORMATION: Exam: CTA Chest With Contrast Exam date and time: 09/04/2024 5:57 PM Age: 68 years old Clinical indication: Pain; Other: Cp; Additional info: Chest pain, elevated d-dimer TECHNIQUE: Imaging protocol: Computed tomographic angiography of the chest with contrast. Exam focused on the arteries. 3D rendering (Not supervised by radiologist): MIP and/or 3D reconstructed images were created by the technologist. Radiation optimization: All CT scans at this facility use at least one of these dose optimization techniques: automated exposure control; mA and/or kV adjustment per patient size (includes targeted exams where dose is matched to clinical indication); or iterative reconstruction. Contrast material: ISOVUE; Contrast volume: 70 ml; Contrast route: INTRAVENOUS (IV); COMPARISON: CT CHEST WO CON 05/06/2024 5:34 PM FINDINGS: Pulmonary arteries: No evidence of pulmonary embolus to the segmental level. Aorta: No aneurysm of the aorta. No dissection of the aorta. Lungs: Consolidation in the right lower lobe. Milder consolidation in the left lower lobe. Findings may represent atelectasis or pneumonia.. Pleural spaces: Large right pleural effusion. Moderate left pleural effusion. Heart: Small pericardial effusion Lymph nodes: Unremarkable. No enlarged lymph nodes. Bones/joints: Unremarkable. No acute fracture. Soft tissues: Unremarkable. IMPRESSION: 1. No evidence of pulmonary embolus to the segmental level. 2. Large right pleural effusion. Moderate left pleural effusion. 3. Consolidation in the right lower lobe. Milder consolidation in the left lower lobe. Findings may represent atelectasis or pneumonia..
[2024-09-04] MEDS: BUMETANIDE 1MG/4ML VIAL 1 MG IV (17:21)
[2024-09-04 17:31] LABS: NT Pro Brain Natriuretic Pep. 4820 pg/mL (0-125)
[2024-09-04 17:33] LABS: Triiodothryronine (T3) Uptake 35 % (23.5-40.5)
[2024-09-04 17:34] LABS: Free Thyroxine Index 4.2 ug/dL (5.93-13.13); T4 (Thyroxine) 12.1 ug/dl (5.53-11.0)
[2024-09-04 17:48] LABS: Thyroid Stimulating Hormone 5.18 uIU/mL (0.465-4.68)
--- NOTE | 2024-09-04 17:51 | PC.NURSE ---
pt going for CT at this time via bed with industrial waste treatment technician
[2024-09-04] MEDS: BUMETANIDE 10 MG in 0.9 % SODIUM CHLORIDE 60 ML 5 MG IV (17:53)
--- NOTE | 2024-09-04 18:01 | PC.NURSE ---
pt back from CT at this time
[2024-09-04] MEDS: SODIUM CHLORIDE 0.9% 10ML SYR (RAD ONLY) 10 ML IV (18:06)
[2024-09-04] MEDS: 0.9 % SODIUM CHLORIDE 50 ML VIAL IV (18:07)
[2024-09-04] MEDS: IOPAMIDOL-370 (76%);100ML BOTTLE 70 ML IV (18:07)
--- NOTE | 2024-09-04 19:19 | PC.NURSE ---
Repeat trop drawn and sent to the lab at this time.
--- NOTE | 2024-09-04 19:32 | PC.NURSE ---
bed request placed
--- NOTE | 2024-09-04 19:57 | PC.NURSE ---
attempt to call report with no bed assignment at this time.
[2024-09-04 19:59] LABS: Troponin I < 0.01 ng/ml (0.00-0.034)
--- NOTE | 2024-09-04 20:04 | PC.NURSE ---
pt walked to the restroom and is now back in room and hooked up to all monitors.
--- NOTE | 2024-09-04 20:06 | PC.NURSE ---
attempting to call report at this time with no answer.
--- NOTE | 2024-09-04 20:07 | PC.NURSE ---
No answer for report, this RN to attempt call back.
--- NOTE | 2024-09-04 20:13 | EXP.HP ---
History of Present Illness *Admission Date: 09/04/24 *Reason for visit:: Large right-sided pleural effusion, shortness of breath *History of present illness: Ms. Dsouza, come in due to shortness of breath. Chest x-ray has found a large right pleural effusion smaller 1 on the left., Vital signs are stable ER doctor talked with Dr. Hancock a Bumex drip was started., Plan at this time is to admit to the floor keep on continuous cardiac monitoring and continuous pulse ox. Will monitor fluid out at this time and consult cardiology, and have consulted pulmonology. Patient's past medical history shows that she had a right pleural effusion in April and that they drained off almost 2 L. Pathology showed atypical mesothelial cells. Patient also has a GFR of 35 renal insufficiency. Stress test and other test if showed that she has normal left ejection function at 65%. Physical exam actually remarkable due to the condition of the scans that actually hear breath sounds on the right side without really any Rales or rhonchi. Left is clear despite showing a small pleural effusion. Noting also that the abdomen is soft and nontender lower extremities are extremely large legs but there is no pitting edema they are actually soft, no significant ascites was also found on the chest CT scan. Also labs noting that the patient's protein levels are normal. So at this time does not show obvious signs of congestive heart failure, or any acute infection, has chronically had decreased renal function. Patient is also noted that due to use of antibiotics it made her nausea increased she actually had lost 80 pounds in the last year and a half used to be diabetic but now it is very controlled on Farxiga noting her last hemoglobin A1c was 5.4. Will repeat that lab in the a.m. to make sure that there is no recurrence of elevated blood sugars. Can see the possibility for the right thoracentesis to be repeated the cytology can be repeated to look for any underlying other causes for this pleural effusion. [facility] Disclaimer: The information contained in this section may have been updated after the patient was seen, as this information can be updated by other users. Medical History (Updated 09/04/24 @ 17:39 by GEOVANNY Atwood) Encounter for pre-operative cardiovascular clearance Elevated diaphragm Dyspnea on exertion Pleural effusion, bilateral Right ventricular dilation Tricuspid regurgitation Mitral regurgitation Hypoxemia Acute respiratory failure with hypoxia Edema Asthma Pneumonia Blind right eye Hyperlipidemia Diabetes mellitus CHF (congestive heart failure) Hypertension Surgical History History of tubal ligation History of ERCP H/O: History of left knee replacement Family History Other AD (Alzheimer's disease) Colorectal cancer Social History Smoking Status: Never smoker alcohol intake: never current occupational status: employed Travel in the last 8 weeks?: None Have you lived/traveled outside US in past 30 days?: No Contact w/someone who lives/traveled outside US past 30 days?: No Exposure to someone with infectious disease in past 14 days?: No Do you have a fever (greater than 100.4 F or 38 C)?: No Have you tested positive for COVID-19?: No Exposed to someone with COVID-19 in past 14 days?: No Do you have a sore throat?: No Do you have a cough?: No Do you have any weakness?: No Do you have any diarrhea?: No Are you experiencing any unusual bleeding?: No Do you have any muscle aches/pain?: No Do you have any abdominal pain?: No Are you experiencing loss of taste or smell?: No Other Medical History Have you received the Flu Vaccine for this season: No Have you received the Pneumonia Vaccine: No Review of Systems Review of Systems Review of systems:: pertinent systems reviewed and negative unless documented below Constitutional Constitutional: Reports as per HPI, Reports fatigue and Reports weakness Eyes Eyes: Reports as per HPI ENT Ears, Nose, Mouth, and Throat: Reports as per HPI *Cardiovascular Cardiovascular: Reports as per HPI, Reports dyspnea and Reports dyspnea on exertion Comments: Shortness of breath with activity *Respiratory Respiratory: Reports as per HPI, Reports dyspnea and Reports dyspnea on exertion Comments: Very mild cough intermittent *Gastrointestinal Gastrointestinal: Reports as per HPI Comments: No abdominal pain not distended slightly large obese lady but on palpation no signs of enlarged organs *Genitourinary Genitourinary: Reports as per HPI Comments: Patient reported she has no trouble with urination or control *Musculoskeletal Comments: Patient reported no significant abnormalities with her back besides just generalized pain related to arthritis Integumentary/Breasts Skin/Breast: Reports as per HPI *Neurologic Neurologic: Reports as per HPI and Reports weakness Psychiatric Psychiatric: Reports as per HPI Endocrine Endocrine: Reports fatigue Hematologic/Lymphatic Hematologic/Lymphatic: Reports as per HPI Allergic/Immunologic Allergic/Immunologic: Reports as per HPI Meds Home Medications and Allergies Home Medications ?Medication ?Instructions ?Recorded ?Confirmed ?Type atorvastatin 40 mg tablet 40 mg PO HS #30 tabs 08/30/24 09/04/24 Rx dapagliflozin propanediol 10 mg 10 mg PO DAILY #30 tabs 08/30/24 09/04/24 Rx tablet (Farxiga) spironolactone 25 mg tablet 25 mg PO BIDL #60 tabs 08/30/24 09/04/24 Rx bumetanide 1 mg tablet 1 mg PO BID #60 tabs 09/04/24 09/04/24 Rx irbesartan 150 mg tablet 150 mg PO BID #60 tabs 09/04/24 09/04/24 Rx metoprolol succinate 100 mg 100 mg PO DAILY #30 tabs 09/04/24 09/04/24 Rx tablet,extended release 24 hr (Toprol XL) New Prescriptions to Start Prescriptions: Allergies Allergy/AdvReac Type Severity Reaction Status Date / Time pentazocine (From Shilpi) Allergy Dizziness Verified 09/04/24 16:44 Exam Data for Last 24 hours Vital signs and Labs for Last 24 Hours: Temp Pulse Resp BP Pulse Ox O2 Del Method 97.9 F 62 20 198/76 H 96 Room Air 09/04/24 16:31 09/04/24 19:31 09/04/24 19:31 09/04/24 19:31 09/04/24 19:31 09/04/24 18:04 Laboratory Results - last 24 hr 09/04/24 16:36: WBC 6.2, RBC 4.08 L, Hgb 12.2, Hct 36.8 L, MCV 90.2, MCH 29.9, MCHC 33.2, RDW 13.1, Plt Count 113 L, MPV 10.9 H, Neut % (Auto) 61.5, Lymph % (Auto) 28.0, [place] % (Auto) 6.9, Eos % (Auto) 2.7, Baso % (Auto) 0.6, Neut # (Auto) 3.8, Lymph # (Auto) 1.8, [place] # (Auto) 0.4, Eos # (Auto) 0.2, Baso # (Auto) 0.0, D-Dimer 1.25 H, Sodium 140, Potassium 3.6, Chloride 105, Carbon Dioxide 30, Anion Gap 8.6, BUN 17, Creatinine 1.50 H, Estimated Creat Clear 54, Estimated GFR 35 L, Est GFR ( Amer) 42 L, Glucose 134 H, Calcium 8.6, Total Bilirubin 1.2, AST 37 H, ALT 17, Alkaline Phosphatase 134 H, Troponin I < 0.01, C-Reactive Protein 1.4, NT-Pro-B Natriuret Pep 5020 H 09/04/24 16:36: NT-Pro-B Natriuret Pep 4820 H, Total Protein 6.4, Albumin 3.6, Globulin 2.8, Albumin/Globulin Ratio 1.3, TSH 5.18 H, Free T4 Index 4.2 L, Thyroxine (T4) 12.1 H, T3 Uptake 35 09/04/24 19:17: Troponin I < 0.01 I & O for Last 24 hours: Intake & Output 09/02/24 09/03/24 09/04/24 09/05/24 05:59 05:59 05:59 05:59 Weight 211 lb Radiology Reports for the Last 24 Hours: . No evidence of pulmonary embolus to the segmental level. 2. Large right pleural effusion. Moderate left pleural effusion. 3. Consolidation in the right lower lobe. Milder consolidation in the left lower lobe. Findings may represent atelectasis or pneumonia.. Constitutional Constitutional: mild distress and obese *Routine HEENT Exam Head: Present normocephalic and atraumatic Eye: Present EOMI and PERRL ENT: Present mucous membranes moist *Routine Neck Exam Neck: Present supple and full ROM *Routine Respiratory Exam Respiratory: Present CTA bilaterally, normal respiratory effort, able to speak in complete sentences and symmetric chest movement Comments: Very unusual findings when listening to her chest I was expecting to hear very decreased sounds but she was moving air in both lungs was expecting rhonchi and rails but there was not, patient has a mild cough that does not sound wet, so the x-ray does not coarsely late with my physical exam *Routine Cardiovascular Exam Cardiovascular: Present RRR, Normal S1, Normal S2 and tachycardia *Routine Abdominal Exam Abdominal: Present soft, normoactive bowel sounds and obese Comments: Abdomen soft nontender no signs of enlarged organs, no signs of ascites *Routine Rectal Exam Rectal:: deferred *Routine Genitalia Exam Genitalia:: deferred *Routine Extremities Exam Extremities: Present full ROM and pulses intact Comments: Both lower extremities are extremely large and edematous but are not pitting edema skin is intact no redness no signs of venous insufficiency *Routine Skin Exam Skin: Present intact, dry and warm *Routine Neurological Exam Neurological: Present alert, oriented X3, CN II-XII intact, normal tone, vision grossly intact, hearing grossly intact and normal speech Routine Psychiatric Exam Psychiatric: Present normal affect, normal thought process, good insight, good judgment and depressed H&P: Result Impressions 1. Right lung pleural effusion recurrent now also minor left lung effusion, history of thoracentesis in April with atypical mesothelial cells 2. Shortness of air not requiring oxygen 3. History of diabetes mellitus Imaging and Cardiology CT scan - chest: Additional comments: . No evidence of pulmonary embolus to the segmental level. 2. Large right pleural effusion. Moderate left pleural effusion. 3. Consolidation in the right lower lobe. Milder consolidation in the left lower lobe. Findings may represent atelectasis or pneumonia.. Assessment and Plan *Assessment and plan (1) Pleural effusion, bilateral: Status: Resolved Category: Medical Code(s): J90 - Pleural effusion, not elsewhere classified (2) CHF exacerbation: Status: Acute Qualifiers: Heart failure type: diastolic Qualified Code(s): I50.33 - Acute on chronic diastolic (congestive) heart failure Category: Medical Code(s): I50.9 - Heart failure, unspecified (3) Edema of both lower extremities: Status: Acute Category: Medical Code(s): R60.0 - Localized edema (4) Obesity (BMI 30-39.9): Status: Chronic Category: Medical Code(s): E66.9 - Obesity, unspecified (5) Diabetes mellitus: Status: Chronic Qualifiers: Diabetes mellitus complication status: without complication Diabetes mellitus correction insulin use: without intermediate accountant use Diabetes mellitus type: type 2 Qualified Code(s): E11.9 - Type 2 diabetes mellitus without complications Category: Medical Code(s): E11.9 - Type 2 diabetes mellitus without complications Plan 1. At this point in time Bumex drip added as patient admitted to the floor pulmonary and cardiology consult done. To evaluate heart function which appears to be normal by previous test done in April 2024, also noting renal insufficiency, 2. History of weight loss and diabetes mellitus now improved actually gaining weight over the last couple of months, this may be fluid accumulation of 20 pounds 3. Patient may require thoracentesis fluid within needs cytology report
--- NOTE | 2024-09-04 20:14 | PC.NURSE ---
report given to Magdalene WALKER on the floor. Pt to be taken to the floor at this time via wheelchair per ER staff.
--- NOTE | 2024-09-04 20:20 | PC.NURSE ---
Patient arrived to floor via wheelchair from ED at 20:19.
[2024-09-04] MEDS: PANTOPRAZOLE 40MG TABLET 40 MG PO (21:41)
[2024-09-04 23:34] LABS: Troponin I < 0.01 ng/ml (0.00-0.034)
[2024-09-05] VITALS (10 sets, daily range): BP systolic 151–191; BP diastolic 69–81; PULSE 57–90; RESP 16–20; TEMP 36.5–36.8; O2SAT 94–97; BMI 33.5
--- NOTE | 2024-09-05 02:30 | PC.NURSE ---
Pt AOx4. New admit this shift. 3+ edema to bilateral feet and legs. On bumex drip. Denies pain or any other needs continually. Currently resting in bed with eyes closed. Respirations even and unlabored. Bed is low, locked, and call light is in reach.
--- NOTE | 2024-09-05 06:15 | CA_ITS ---
APPROVED REPORT EXAM: Comprehensive 2D, Doppler, and color-flow Echocardiogram Project Designer: JUANY Torre, RVS Ht: 5 ft 6 in Wt: 214lbs BSA: 2.06 BP: 198/76 mmHg Indications: CHF exacerbation, Diastolic dysfunction. DM, HTN, HLD 2D Dimensions Left Atrium 4.16 cm LA Volume 64.10 mL LA Volume Index 30.40 mL/m2 (M/F) 16-34 M-Mode Dimensions RVDd 2.46 cm (0.9-2.6) LA Diam 4.05 cm (1.9-4.0) LVDd 5.22 cm (3.5-5.7) LVDs 3.61 cm (3.5-5.7) IVSd 1.25 cm (0.6-1.1) PWd 1.07 cm (0.6-1.1) EF (Teich) 58.10% EPSs 0.22 cm FS 30.80% EDV (Teich) 130.70 mL TAPSE 1.65 (<1.7) ESV (Teich) 54.80 mL LV Diastology E Decel Time 240 (160-240 msec) E/A Ratio 0.80 MED A' 8.60 cm/s LAT A' 8.70 cm/s Aortic Valve HARINI Index 0.98 cm2/m2 AoV Peak Chivo. 172.0 (50-130 cm/s) AO Peak GR. 11.90 mmHg AO Mean GR. 5.80 (<5 mmHg) AO VTI 42.2 (18-25 cm) HARINI (VTI) 2.06 (2.5-4.5 cm2) Mitral Valve MV A Velocity 84.0 (40-130 cm/s) E/A Ratio 0.80 Tricuspid Valve TR P. Velocity 296.00 cm/s RAP Estimate 10.00 mmHg RVSP 45.00 mmHg Left Ventricle The left ventricle is normal size. The left ventricular systolic function is normal. The left ventricular ejection fraction is within the normal range. There is increased LV wall thickness. There is normal LV segmental wall motion. Grade 2 diastolic dysfunction is present. LVEF is 55%. Right Ventricle The right ventricle is normal size. The right ventricular systolic function is normal. Atria Left atrium is moderately dilated. Right atrium is mildly dilated. There is no Doppler evidence of interatrial shunt. Aortic Valve The aortic valve is mildly thickened. There is no aortic valvular stenosis. Trace aortic regurgitation. Mitral Valve The mitral valve is mildly thickened. No evidence of mitral valve stenosis. Mild mitral regurgitation. Tricuspid Valve Tricuspid valve is grossly normal in structure and function. Mild tricuspid regurgitation. RVSP is 30-35 mmHg. Pulmonic Valve The pulmonary valve is normal in structure. Trace pulmonic regurgitation. Great Vessels The aortic root is normal in size. IVC is normal in size and collapses >50% with inspiration. Pericardium There is no pericardial effusion. Other Information Study Quality: Fair Conclusion Normal biventricular systolic function. Biatrial dilation. Mild MR, mild TR. Electronically signed by : Rima Sellers MD 09/05/2024 11:57:35
[2024-09-05 06:27] LABS: Hematocrit 35.0 % (37.0-47.0); Hemoglobin 11.3 g/dL (12.2-16.2); Immature Granulocytes % 0.4 %; Mean Corpuscular HGB Conc 32.3 g/dL (31.8-35.4); Mean Corpuscular Hemoglobin 28.7 pg (27.0-31.2); Mean Corpuscular Volume 88.8 fl (81-99); Nucleated Red Blood Cells % 0 %; Platelet Count 91 K/mm3 (142-424); Red Blood Count 3.94 M/mm3 (4.20-5.40); Red Cell Distribution Width-SD 42.1 fL; White Blood Count 2.4 K/mm3 (4.8-10.8)
[2024-09-05 07:01] LABS: Alanine Aminotransferase 12 U/L (12-78); Albumin Level 2.9 g/dl (3.5-5.0); Albumin/Globulin Ratio 1.1 (1.1-1.8); Alkaline Phosphatase 110 U/L (38-126); Anion Gap 7.3 mEq/L (5-15); Aspartate Amino Transferase 28 U/L (14-36); Bilirubin,Total 0.8 mg/dl (0.2-1.3); Blood Urea Nitrogen 20 mg/dl (7-17); Calcium 8.2 mg/dl (8.4-10.2); Carbon Dioxide 31 mmol/L (22.0-30.0); Chloride 104 mmol/L (98-107); Creatinine Clearance Estimated 50 mL/min (50-200); Creatinine,Serum 1.60 mg/dl (0.52-1.04); Estimated Glomerular Filt Rate 32 ml/min (>60); GFR (African American) 39 ML/MIN (>60); Globulin 2.6 g/dL (1.3-3.2); Glucose 181 mg/dl (74-100); Magnesium 1.2 mg/dl (1.6-2.3); Potassium 4.3 mmoL/L (3.5-5.1); Sodium 138 mmol/L (136-145); Total Protein,Serum 5.5 g/dl (6.3-8.2)
[2024-09-05 07:03] LABS: NT Pro Brain Natriuretic Pep. 5620 pg/mL (0-125)
--- NOTE | 2024-09-05 07:33 | HMH.PHAINT1 ---
Pharmacy Intervention Comments: HOME MEDICATION LIST VERIFIED USING LISTS FROM CARDIOLOGY OFFICE AND OUTPATIENT PHARMACY. RECENT INCREASES TO METOPROLOL, BUMEX AND IRBESARTAN DOSES
[2024-09-05 08:42] LABS: Total Cells Counted 100
[2024-09-05 08:43] LABS: RBC Morphology Normal
[2024-09-05] MEDS: MAGNESIUM SULFATE IN WATER 2 GM/50 ML PIGGYBACK IV ×3 (09:16→11:05)
--- NOTE | 2024-09-05 09:53 | EXP.PULM.CON ---
History of Present Illness History of present illness: Ms. Reyes is a 68-year-old female never smoker, elevated right hemidiaphragm reported history of diabetes hypertension presented to the ER with worsening respiratory distress and pulmonary was called for further evaluation and management. Patient admits worsening lower extremity swelling. Denies any worsening respiratory distress. [facility] Disclaimer: The information contained in this section may have been updated after the patient was seen, as this information can be updated by other users. Medical History (Updated 09/04/24 @ 17:39 by GEOVANNY Atwood) Encounter for pre-operative cardiovascular clearance Elevated diaphragm Dyspnea on exertion Pleural effusion, bilateral Right ventricular dilation Tricuspid regurgitation Mitral regurgitation Hypoxemia Acute respiratory failure with hypoxia Edema Asthma Pneumonia Blind right eye Hyperlipidemia Diabetes mellitus CHF (congestive heart failure) Hypertension Surgical History History of tubal ligation History of ERCP H/O: History of left knee replacement Family History Other AD (Alzheimer's disease) Colorectal cancer Social History Smoking Status: Never smoker alcohol intake: never current occupational status: employed Travel in the last 8 weeks?: None Have you lived/traveled outside [place] in past 30 days?: No Contact w/someone who lives/traveled outside US past 30 days?: No Exposure to someone with infectious disease in past 14 days?: No Do you have a fever (greater than 100.4 F or 38 C)?: No Have you tested positive for COVID-19?: No Exposed to someone with COVID-19 in past 14 days?: No Do you have a sore throat?: No Do you have a cough?: No Do you have any weakness?: No Do you have any diarrhea?: No Are you experiencing any unusual bleeding?: No Do you have any muscle aches/pain?: No Do you have any abdominal pain?: No Are you experiencing loss of taste or smell?: No Review of Systems Constitutional Constitutional: Reports fatigue and Reports weakness Eyes Eyes: Denies eye discharge, Denies dry eyes, Denies irritation and Denies itchy eyes ENT Ears, Nose, Mouth, and Throat: Denies epistaxis, Denies facial pain, Denies lip swelling and Denies throat swelling *Cardiovascular Cardiovascular: Reports dyspnea, Reports dyspnea on exertion, Reports leg edema and Reports orthopnea *Respiratory Respiratory: Denies change in phlegm color, Reports chest congestion, Reports cough, Reports dyspnea, Reports dyspnea on exertion, Denies excessive phlegm production, Denies hemoptysis, Denies pain on inspiration, Denies pain with cough and Denies wheezing *Gastrointestinal Gastrointestinal: Denies abdominal pain, Denies belching and Denies cramping *Musculoskeletal Musculoskeletal: Reports back pain, Reports myalgias and Reports other (No small joint swelling or Pain) *Neurologic Neurologic: Reports as per HPI and Reports weakness Psychiatric Psychiatric: Denies homicidal ideation and Denies suicidal ideation Endocrine Endocrine: Reports fatigue and Denies heat intolerance Hematologic/Lymphatic Hematologic/Lymphatic: Denies easy bleeding and Denies lymphadenopathy Allergic/Immunologic Allergic/Immunologic: Denies itchy eyes, Denies lip swelling, Denies throat swelling and Denies wheezing Pulmonology Exam Inpatient Vital signs and Labs for Last 24 Hours: Temp Pulse Resp BP Pulse Ox O2 Del Method 97.9 F 68 16 167/81 H 97 Room Air 09/05/24 08:00 09/05/24 08:00 09/05/24 08:00 09/05/24 08:00 09/05/24 08:00 09/05/24 09:00 Laboratory Results - last 24 hr 09/04/24 16:36: WBC 6.2, RBC 4.08 L, Hgb 12.2, Hct 36.8 L, MCV 90.2, MCH 29.9, MCHC 33.2, RDW 13.1, Plt Count 113 L, MPV 10.9 H, Neut % (Auto) 61.5, Lymph % (Auto) 28.0, [place] % (Auto) 6.9, Eos % (Auto) 2.7, Baso % (Auto) 0.6, Neut # (Auto) 3.8, Lymph # (Auto) 1.8, [place] # (Auto) 0.4, Eos # (Auto) 0.2, Baso # (Auto) 0.0, D-Dimer 1.25 H, Sodium 140, Potassium 3.6, Chloride 105, Carbon Dioxide 30, Anion Gap 8.6, BUN 17, Creatinine 1.50 H, Estimated Creat Clear 54, Estimated GFR 35 L, Est GFR ( Amer) 42 L, Glucose 134 H, Calcium 8.6, Total Bilirubin 1.2, AST 37 H, ALT 17, Alkaline Phosphatase 134 H, Troponin I < 0.01, C-Reactive Protein 1.4, NT-Pro-B Natriuret Pep 5020 H 09/04/24 16:36: NT-Pro-B Natriuret Pep 4820 H, Total Protein 6.4, Albumin 3.6, Globulin 2.8, Albumin/Globulin Ratio 1.3, TSH 5.18 H, Free T4 Index 4.2 L, Thyroxine (T4) 12.1 H, T3 Uptake 35 09/04/24 19:17: Troponin I < 0.01 09/04/24 22:57: Troponin I < 0.01 09/05/24 05:47: WBC 2.4 L D, RBC 3.94 L, Hgb 11.3 L, Hct 35.0 L, MCV 88.8, MCH 28.7, MCHC 32.3, RDW 12.8, Plt Count 91 L, MPV 11.5 H, Neut % (Auto) 78.5, Lymph % (Auto) 19.9, [place] % (Auto) 0.8 L, Eos % (Auto) 0.0 L, Baso % (Auto) 0.4, Neut # (Auto) 1.9, Lymph # (Auto) 0.5 L, [place] # (Auto) 0.0 L, Eos # (Auto) 0.0, Baso # (Auto) 0.0, Total Counted 100, Neutrophils % (Manual) 74, Lymphocytes % (Manual) 25, Monocytes % (Manual) 1 L, Platelet Estimate Slight decrease, RBC Morphology Normal, Sodium 138, Potassium 4.3, Chloride 104, Carbon Dioxide 31 H, Anion Gap 7.3, BUN 20 H, Creatinine 1.60 H, Estimated Creat Clear 50, Estimated GFR 32 L, Est GFR ( Amer) 39 L, Glucose 181 H D, Calcium 8.2 L, Magnesium 1.2 L, Total Bilirubin 0.8, AST 28, ALT 12 D, Alkaline Phosphatase 110, NT-Pro-B Natriuret Pep 5620 H, Total Protein 5.5 L, Albumin 2.9 L D, Globulin 2.6, Albumin/Globulin Ratio 1.1 I & O for Labs for Last 24 Hours: Intake & Output 09/02/24 09/03/24 09/04/24 09/05/24 23:59 23:59 23:59 23:59 Intake Total 480 / 480 Output Total 1200 / 1200 Balance -720 / -720 Weight 212 lb 1.6 oz 208 lb 4.8 oz Constitutional: Present moderate distress Head: Present normocephalic and atraumatic ENT: Present normal exam, normal oropharynx and mucous membranes moist Neck: Present normal inspection and full ROM Respiratory: Present decreased breath sounds and able to speak in complete sentences; Absent prolonged expiratory phase, respiratory distress, rhonchi or wheezes Cardiac: Present S1/S2, Tachycardia and radial pulses present GI: Present soft and distention; Absent tenderness or guarding Rectal (female): Present deferred (female): Present deferred Skin: Present intact; Absent cyanosis or jaundice Neuro: Present alert, awake and oriented x 3 Extremities: Present normal inspection and edema; Absent clubbing or cyanosis Psychiatric: Present normal affect and cooperative Meds Home Medications and Allergies Home Medications ?Medication ?Instructions ?Recorded ?Confirmed ?Type atorvastatin 40 mg tablet 40 mg PO HS #30 tabs 08/30/24 09/04/24 Rx dapagliflozin propanediol 10 mg 10 mg PO DAILY #30 tabs 08/30/24 09/04/24 Rx tablet (Farxiga) spironolactone 25 mg tablet 25 mg PO BIDL #60 tabs 08/30/24 09/04/24 Rx bumetanide 1 mg tablet 1 mg PO BID #60 tabs 09/04/24 09/05/24 Rx irbesartan 150 mg tablet 150 mg PO BID #60 tabs 09/04/24 09/05/24 Rx metoprolol succinate 100 mg 100 mg PO DAILY #30 tabs 09/04/24 09/05/24 Rx tablet,extended release 24 hr (Toprol XL) New Prescriptions to Start Prescriptions: Allergies Allergy/AdvReac Type Severity Reaction Status Date / Time pentazocine (From Shilpi) Allergy Dizziness Verified 09/04/24 16:44 Results Laboratory Findings 09/05/24 05:47 09/05/24 05:47 PT/INR, D-dimer D-Dimer 1.25 ug/mL (0.0-0.5) H 09/04/24 16:36 Abnormal lab findings: Abnormal Labs 09/04/24 09/04/24 09/05/24 16:36 16:36 05:47 WBC 2.4 L D RBC 4.08 L 3.94 L Hgb 11.3 L Hct 36.8 L 35.0 L Plt Count 113 L 91 L MPV 10.9 H 11.5 H [place] % (Auto) 0.8 L Eos % (Auto) 0.0 L Lymph # (Auto) 0.5 L [place] # (Auto) 0.0 L Monocytes % (Manual) 1 L D-Dimer 1.25 H Carbon Dioxide 31 H BUN 20 H Creatinine 1.50 H 1.60 H Estimated GFR 35 L 32 L Est GFR ( Amer) 42 L 39 L Glucose 134 H 181 H D Calcium 8.2 L Magnesium 1.2 L AST 37 H Alkaline Phosphatase 134 H NT-Pro-B Natriuret Pep 5020 H 4820 H 5620 H Total Protein 5.5 L Albumin 2.9 L D TSH 5.18 H Free T4 Index 4.2 L Thyroxine (T4) 12.1 H Assessment and Plan *Assessment and plan (1) Pleural effusion, bilateral: Status: Resolved Category: Medical Code(s): J90 - Pleural effusion, not elsewhere classified Plan Ms. Reyes is a 68-year-old female never smoker, elevated right hemidiaphragm reported history of diabetes hypertension presented to the ER with worsening respiratory distress and pulmonary was called for further evaluation and management. Patient admits worsening lower extremity swelling. Denies any worsening respiratory distress. Patient had previous admissions for worsening bilateral effusions previously that resulted in transudative effusions likely from volume overload from CHF exacerbation. Afebrile. Hemodynamically stable. Leukopenia. CTA on this admission bilateral pleural effusions large right and moderate left. No dense consolidative/airspace changes noted. Adjacent atelectasis noted. No evidence of pulmonary embolism. On examination bilateral decreased breath sounds in lower lung lewis. Right greater than left decreased. Does not appear to be in any respiratory distress. On room air saturating 95% and above. Plan: Will hold off on performing thoracentesis at this point of time as likely etiology would be a transudative effusion from volume overload. Will monitor clinically Volume optimization as per primary team and cardiology. Currently receiving Bumex drip
--- NOTE | 2024-09-05 10:49 | EXP.PN ---
Subjective *Date: 09/05/24 *Time: 10:49 Interval history: seen at bedside, denied Chest pain, has significant b/l leg swelling, denied N/V. Exam Data for Last 24 hours Vital signs and Labs for Last 24 Hours: Temp Pulse Resp BP Pulse Ox O2 Del Method 97.9 F 68 16 167/81 H 97 Room Air 09/05/24 08:00 09/05/24 08:00 09/05/24 08:00 09/05/24 08:00 09/05/24 08:45 09/05/24 09:00 Laboratory Results - last 24 hr 09/04/24 16:36: WBC 6.2, RBC 4.08 L, Hgb 12.2, Hct 36.8 L, MCV 90.2, MCH 29.9, MCHC 33.2, RDW 13.1, Plt Count 113 L, MPV 10.9 H, Neut % (Auto) 61.5, Lymph % (Auto) 28.0, [place] % (Auto) 6.9, Eos % (Auto) 2.7, Baso % (Auto) 0.6, Neut # (Auto) 3.8, Lymph # (Auto) 1.8, [place] # (Auto) 0.4, Eos # (Auto) 0.2, Baso # (Auto) 0.0, D-Dimer 1.25 H, Sodium 140, Potassium 3.6, Chloride 105, Carbon Dioxide 30, Anion Gap 8.6, BUN 17, Creatinine 1.50 H, Estimated Creat Clear 54, Estimated GFR 35 L, Est GFR ( Amer) 42 L, Glucose 134 H, Calcium 8.6, Total Bilirubin 1.2, AST 37 H, ALT 17, Alkaline Phosphatase 134 H, Troponin I < 0.01, C-Reactive Protein 1.4, NT-Pro-B Natriuret Pep 5020 H 09/04/24 16:36: NT-Pro-B Natriuret Pep 4820 H, Total Protein 6.4, Albumin 3.6, Globulin 2.8, Albumin/Globulin Ratio 1.3, TSH 5.18 H, Free T4 Index 4.2 L, Thyroxine (T4) 12.1 H, T3 Uptake 35 09/04/24 19:17: Troponin I < 0.01 09/04/24 22:57: Troponin I < 0.01 09/05/24 05:47: WBC 2.4 L D, RBC 3.94 L, Hgb 11.3 L, Hct 35.0 L, MCV 88.8, MCH 28.7, MCHC 32.3, RDW 12.8, Plt Count 91 L, MPV 11.5 H, Neut % (Auto) 78.5, Lymph % (Auto) 19.9, [place] % (Auto) 0.8 L, Eos % (Auto) 0.0 L, Baso % (Auto) 0.4, Neut # (Auto) 1.9, Lymph # (Auto) 0.5 L, [place] # (Auto) 0.0 L, Eos # (Auto) 0.0, Baso # (Auto) 0.0, Total Counted 100, Neutrophils % (Manual) 74, Lymphocytes % (Manual) 25, Monocytes % (Manual) 1 L, Platelet Estimate Slight decrease, RBC Morphology Normal, Sodium 138, Potassium 4.3, Chloride 104, Carbon Dioxide 31 H, Anion Gap 7.3, BUN 20 H, Creatinine 1.60 H, Estimated Creat Clear 50, Estimated GFR 32 L, Est GFR ( Amer) 39 L, Glucose 181 H D, Calcium 8.2 L, Magnesium 1.2 L, Total Bilirubin 0.8, AST 28, ALT 12 D, Alkaline Phosphatase 110, NT-Pro-B Natriuret Pep 5620 H, Total Protein 5.5 L, Albumin 2.9 L D, Globulin 2.6, Albumin/Globulin Ratio 1.1 I & O for Last 24 hours: Intake & Output 09/02/24 09/03/24 09/04/24 09/05/24 23:59 23:59 23:59 23:59 Intake Total 480 / 480 Output Total 1200 / 1200 Balance -720 / -720 Weight 96.207 kg 94.483 kg Constitutional Constitutional: no acute distress *Routine HEENT Exam Head: Present normocephalic Eye: Present EOMI and PERRL ENT: Present mucous membranes moist *Routine Neck Exam Neck: Present supple; Absent lymphadenopathy *Routine Respiratory Exam Respiratory: Present CTA bilaterally *Routine Cardiovascular Exam Cardiovascular: Present RRR *Routine Abdominal Exam Abdominal: Present soft and normoactive bowel sounds; Absent tenderness *Routine Extremities Exam Extremities: Present edema; Absent cyanosis or clubbing Comments: +++ b/l LE edema *Routine Skin Exam Skin: Present warm; Absent rash *Routine Neurological Exam Neurological: Present alert and oriented X3 Assessment and Plan *Assessment and plan (1) Pleural effusion, bilateral: Status: Resolved Category: Medical Code(s): J90 - Pleural effusion, not elsewhere classified (2) CHF exacerbation: Status: Acute Qualifiers: Heart failure type: diastolic Qualified Code(s): I50.33 - Acute on chronic diastolic (congestive) heart failure Category: Medical Code(s): I50.9 - Heart failure, unspecified (3) Edema of both lower extremities: Status: Acute Category: Medical Code(s): R60.0 - Localized edema (4) Obesity (BMI 30-39.9): Status: Chronic Category: Medical Code(s): E66.9 - Obesity, unspecified (5) Diabetes mellitus: Status: Chronic Qualifiers: Diabetes mellitus type: type 2 Diabetes mellitus intermediate manager insulin use: without intermediate manager use Diabetes mellitus complication status: without complication Qualified Code(s): E11.9 - Type 2 diabetes mellitus without complications Category: Medical Code(s): E11.9 - Type 2 diabetes mellitus without complications Plan consulted pulmonary, no plan for thoracentesis continue IV bumex, strict Is and Os consulted cardiology - continue diuresis ISS continue atoravstatin, jardiance, metoprolol continue aldactone 25mg Daily DVT PPx- SCDs for now, plt count 91
--- OUTSIDE RECORDS SUMMARY | 2024-09-05 10:49 | XMS_ITS | Clinical Summary ---
Author Organization [facility] Address [address] [place] [address] Care Team Providers Care Bun Icer Name Role Phone AndrewCatherine moore Ayse ESCOBEDO [...] severe unilateral swelling, warmth and calf pain. [facility] unable to schedule patient for outpatient duplex [...] daily 3. She has appointment with Dr. Armijo regarding her knee and ankle pain, hopes [...] 112/60 on average. Blood pressure obtained by SISAL PICKER on presentation in office today is 180/80, [...] Type Department Care Team Description 07/26/2024 Telephone [facility] [address] [place] [address] [place] [address] Taylor Pablo Appointment 07/04/2024 Telephone [facility] [address] [place] [address] Catherine Morales, SUPERINTENDENT CIRCUS from Last 3 Months Immunizations Immunization Administration [...] Hemoglobin A1C 4.9 4.5 - 5.7 % [facility] Lot Number [id number] [facility] Expiration Date ,[address] [facility] Blood 03/02/2024 12:5 9 PM EST Catherine Morales APRN POINT OF CARE TEST ORDERABL ES Final Result [facility]
[address] [place] [address], * Lipid Panel (05/16/2023 9:57 AM EDT) [...] 8:08 AM EDT Performed at: 01 - [facility] [id number] Gear Lapper: Manny Muñoz PhD, Phone: [phone] Catherine Morales APRN LAB BLOOD ORDERABLES Final Result [facility] (AMBULATORY) [address] [place] [address], [place] [phone] [facility] [address] [place] [address], [place] [phone] * SCANNED - COLONOSCOPY (03/23/2023) us Catherine [...] 07/10/2022 Comment:Blood Release to anurag varela Ez [facility] (AMBULATORY) - 07/10/2022 8:09 AM EDT Performed at: [facility] - [facility] [address] [place] [id number] Gear Lapper: Manny Muñoz PhD, Phone: [phone] Catherine Morales APRN LAB BLOOD ORDERABLES Final Result [facility] [address] [place] [address], [facility] [address] [place] [address], * DEXA Scan (08/04/2018) Anatomical Region Laterality Modality Other [facility]S Final Re sult * HM MAMMOGRAPHY (11/11/2017) Anatomical Region Laterality Modality Other [facility] HEALTH MAINTENANCE Final Resu lt from Last 3 Months or Most Recently Relevant to Health Maintenance Insurance [employer] [facility] PPO MEDICARE A & B Care Teams Bun Icer Relationship Specialty Start Date End Date Catherine Morales APRN [address] [phone] PCP - General Family Medicine 11/30/21
--- OUTSIDE RECORDS SUMMARY | 2024-09-05 10:49 | XMS_ITS | Encounter Summary ---
Author Organization [facility] Address [address] [place] [address] Care Team Providers Care Pharmacy Technician Inpatient Name Role Phone Catherine Morales FANNY Primary Care Provider [phone] Reason for Visit * Reason Onset Date Comments Appointment 07/26/2024 Encounter Details Date Type Department Care Team (Late st Contact Info) Description 07/26/2024 Telephone [facility] [address] [place] [address] [place] [phone] Taylor Pablo Appointment Social [...] on filedocumented in this encounter Care Teams Pharmacy Technician Inpatient Relationship Specialty Start Date End Date Catherine Morales APRN [address] [phone] PCP - General Family Medicine 11/30/21 documented as of this encounter
[2024-09-05] MEDS: ACETAMINOPHEN 325MG TAB 650 MG PO (11:08)
[2024-09-05 11:36] LABS: Hemoglobin A1C 5.5 % (4.0-6.0)
[2024-09-05] MEDS: METOPROLOL SUCCINATE XL 100MG TABLET 100 MG PO (12:26)
[2024-09-05] MEDS: IRBESARTAN 150MG TAB 150 MG PO ×2 (12:26→20:28)
[2024-09-05] MEDS: DAPAGLIFLOZIN PROPANEDIOL 10 MG TABLET PO (12:26)
--- NOTE | 2024-09-05 13:18 | EXP.CARD.CON ---
History of Present Illness History of Present Illness Consult date: 09/05/24 Requesting physician: Farzaneh Hackett Consult reason: shortness of breath Chief complaint: Shortness of breath and edema History of present illness: This is a 68-year-old white female who presented to the emergency department with shortness of breath and edema. The patient states that she has felt very well since being in the hospital in April 2024. She states the medications they sent her out on To her symptoms and vitals under very good control. She reports that she went in to have a knee revision on July 19 and they discontinue all of her medications. Since that time she has started to develop shortness of breath and bilateral lower extremity edema. She states her bilateral lower extremity edema got pretty severe last week and she called the cardiology office and all of her medications were resumed. However this week her symptoms continued to persist and she was feeling better so she came into cardiology clinic and was referred to the emergency department because of her worsening symptoms. She states that she was starting to get severely short of breath with exertion. It improved with rest. She states as long as she was sitting down she could breathe fine but anytime she would get up she would be profoundly short of breath. Her edema was severe and starting back her home medicines did not improve her edema. She denied any fever, chills, nausea, vomiting or diarrhea. She denies any chest pain or pressure. The patient was subsequently admitted to the hospital for acute on chronic exacerbation of HFpEF. She was found to have a large right pleural effusion and a moderate left pleural effusion. She is on room air, maintaining her oxygen saturations. [facility] Disclaimer: The information contained in this section may have been updated after the patient was seen, as this information can be updated by other users. Medical History (Updated 09/05/24 @ 13:23 by Marjorie Sim APRN) Acute on chronic heart failure with preserved ejection fraction (HFpEF) Encounter for pre-operative cardiovascular clearance Elevated diaphragm Dyspnea on exertion Pleural effusion, bilateral Right ventricular dilation Tricuspid regurgitation Mitral regurgitation Hypoxemia Acute respiratory failure with hypoxia Edema Asthma Pneumonia Blind right eye Hyperlipidemia Diabetes mellitus CHF (congestive heart failure) Hypertension Surgical History History of tubal ligation History of ERCP H/O: History of left knee replacement Family History Other AD (Alzheimer's disease) Colorectal cancer Social History Smoking Status: Never smoker alcohol intake: never current occupational status: employed Travel in the last 8 weeks?: None Have you lived/traveled outside [place] in past 30 days?: No Contact w/someone who lives/traveled outside US past 30 days?: No Exposure to someone with infectious disease in past 14 days?: No Do you have a fever (greater than 100.4 F or 38 C)?: No Have you tested positive for COVID-19?: No Exposed to someone with COVID-19 in past 14 days?: No Do you have a sore throat?: No Do you have a cough?: No Do you have any weakness?: No Do you have any diarrhea?: No Are you experiencing any unusual bleeding?: No Do you have any muscle aches/pain?: No Do you have any abdominal pain?: No Are you experiencing loss of taste or smell?: No Review of Systems Review of Systems Review of systems:: pertinent systems reviewed and negative unless documented below Constitutional Constitutional: Reports system reviewed and no additional complaints, except as documented, Reports fatigue, Reports lethargy and Reports weakness Eyes Eyes: Reports system reviewed and no additional complaints, except as documented ENT Ears, Nose, Mouth, and Throat: Reports system reviewed and no additional complaints, except as documented *Cardiovascular Cardiovascular: Reports system reviewed and no additional complaints, except as documented, Reports chest pain, Reports chest pain at rest, Reports chest pain with activity, Reports dyspnea, Reports dyspnea on exertion, Reports edema, Reports leg edema, Reports orthopnea and Reports pedal edema *Respiratory Respiratory: Reports system reviewed and no additional complaints, except as documented, Reports dyspnea and Reports dyspnea on exertion *Gastrointestinal Gastrointestinal: Reports system reviewed and no additional complaints, except as documented *Genitourinary Genitourinary: Reports system reviewed and no additional complaints, except as documented *Musculoskeletal Musculoskeletal: Reports system reviewed and no additional complaints, except as documented Integumentary/Breasts Skin/Breast: Reports system reviewed and no additional complaints, except as documented *Neurologic Neurologic: Reports system reviewed and no additional complaints, except as documented, Reports as per HPI and Reports weakness Psychiatric Psychiatric: Reports system reviewed and no additional complaints, except as documented Endocrine Endocrine: Reports system reviewed and no additional complaints, except as documented and Reports fatigue Hematologic/Lymphatic Hematologic/Lymphatic: Reports system reviewed and no additional complaints, except as documented Allergic/Immunologic Allergic/Immunologic: Reports system reviewed and no additional complaints, except as documented Exam Data for Last 24 hours Vital signs and Labs for Last 24 Hours: Temp Pulse Resp BP Pulse Ox O2 Del Method 97.8 F 75 16 166/69 H 96 Room Air 09/05/24 12:00 09/05/24 12:00 09/05/24 12:00 09/05/24 12:00 09/05/24 12:00 09/05/24 11:00 Laboratory Results - last 24 hr 09/04/24 16:36: WBC 6.2, RBC 4.08 L, Hgb 12.2, Hct 36.8 L, MCV 90.2, MCH 29.9, MCHC 33.2, RDW 13.1, Plt Count 113 L, MPV 10.9 H, Neut % (Auto) 61.5, Lymph % (Auto) 28.0, [place] % (Auto) 6.9, Eos % (Auto) 2.7, Baso % (Auto) 0.6, Neut # (Auto) 3.8, Lymph # (Auto) 1.8, [place] # (Auto) 0.4, Eos # (Auto) 0.2, Baso # (Auto) 0.0, D-Dimer 1.25 H, Sodium 140, Potassium 3.6, Chloride 105, Carbon Dioxide 30, Anion Gap 8.6, BUN 17, Creatinine 1.50 H, Estimated Creat Clear 54, Estimated GFR 35 L, Est GFR ( Amer) 42 L, Glucose 134 H, Calcium 8.6, Total Bilirubin 1.2, AST 37 H, ALT 17, Alkaline Phosphatase 134 H, Troponin I < 0.01, C-Reactive Protein 1.4, NT-Pro-B Natriuret Pep 5020 H 09/04/24 16:36: NT-Pro-B Natriuret Pep 4820 H, Total Protein 6.4, Albumin 3.6, Globulin 2.8, Albumin/Globulin Ratio 1.3, TSH 5.18 H, Free T4 Index 4.2 L, Thyroxine (T4) 12.1 H, T3 Uptake 35 09/04/24 19:17: Troponin I < 0.01 09/04/24 22:57: Troponin I < 0.01 09/05/24 05:47: WBC 2.4 L D, RBC 3.94 L, Hgb 11.3 L, Hct 35.0 L, MCV 88.8, MCH 28.7, MCHC 32.3, RDW 12.8, Plt Count 91 L, MPV 11.5 H, Neut % (Auto) 78.5, Lymph % (Auto) 19.9, [place] % (Auto) 0.8 L, Eos % (Auto) 0.0 L, Baso % (Auto) 0.4, Neut # (Auto) 1.9, Lymph # (Auto) 0.5 L, [place] # (Auto) 0.0 L, Eos # (Auto) 0.0, Baso # (Auto) 0.0, Total Counted 100, Neutrophils % (Manual) 74, Lymphocytes % (Manual) 25, Monocytes % (Manual) 1 L, Platelet Estimate Slight decrease, RBC Morphology Normal, Sodium 138, Potassium 4.3, Chloride 104, Carbon Dioxide 31 H, Anion Gap 7.3, BUN 20 H, Creatinine 1.60 H, Estimated Creat Clear 50, Estimated GFR 32 L, Est GFR ( Amer) 39 L, Glucose 181 H D, Hemoglobin A1c 5.5, Calcium 8.2 L, Magnesium 1.2 L, Total Bilirubin 0.8, AST 28, ALT 12 D, Alkaline Phosphatase 110, NT-Pro-B Natriuret Pep 5620 H, Total Protein 5.5 L, Albumin 2.9 L D, Globulin 2.6, Albumin/Globulin Ratio 1.1 I & O for Last 24 hours: Intake & Output 09/02/24 09/03/24 09/04/24 09/05/24 23:59 23:59 23:59 23:59 Intake Total 569.583 / 569.583 Output Total 1200 / 1200 Balance -630.417 / -630.417 Weight 212 lb 1.6 oz 208 lb 4.8 oz Constitutional Constitutional: no acute distress and average body habitus *Routine HEENT Exam Head: Present normocephalic and atraumatic ENT: Present mucous membranes moist *Routine Neck Exam Neck: Present supple, full ROM and normal carotid upstroke; Absent JVD, carotid bruit or lymphadenopathy *Routine Respiratory Exam Respiratory: Present CTA bilaterally, normal respiratory effort, able to speak in complete sentences and symmetric chest movement *Routine Cardiovascular Exam Cardiovascular: Present RRR, Normal S1 and Normal S2; Absent murmur or gallop *Routine Abdominal Exam Abdominal: Present soft and normoactive bowel sounds; Absent tenderness, distended or organomegaly *Routine Extremities Exam Extremities: Present edema, full ROM, pulses intact and normal capillary refill; Absent cyanosis or clubbing *Routine Skin Exam Skin: Present intact and warm; Absent erythema *Routine Neurological Exam Neurological: Present alert, oriented X3 and CN II-XII intact; Absent sensory deficit or motor deficit Routine Psychiatric Exam Psychiatric: Present normal affect Meds Home Medications and Allergies Home Medications ?Medication ?Instructions ?Recorded ?Confirmed ?Type atorvastatin 40 mg tablet 40 mg PO HS #30 tabs 08/30/24 09/04/24 Rx dapagliflozin propanediol 10 mg 10 mg PO DAILY #30 tabs 08/30/24 09/04/24 Rx tablet (Farxiga) spironolactone 25 mg tablet 25 mg PO BIDL #60 tabs 08/30/24 09/04/24 Rx bumetanide 1 mg tablet 1 mg PO BID #60 tabs 09/04/24 09/05/24 Rx irbesartan 150 mg tablet 150 mg PO BID #60 tabs 09/04/24 09/05/24 Rx metoprolol succinate 100 mg 100 mg PO DAILY #30 tabs 09/04/24 09/05/24 Rx tablet,extended release 24 hr (Toprol XL) New Prescriptions to Start Prescriptions: Allergies Allergy/AdvReac Type Severity Reaction Status Date / Time pentazocine (From Shilpi) Allergy Dizziness Verified 09/04/24 16:44 Assessment and Plan *Assessment and plan (1) Acute on chronic heart failure with preserved ejection fraction (HFpEF): Status: Acute Category: Medical Code(s): I50.33 - Acute on chronic diastolic (congestive) heart failure (2) Diabetes mellitus: Status: Chronic Qualifiers: Diabetes mellitus type: type 2 Diabetes mellitus longterm insulin use: without intermediate project manager use Diabetes mellitus complication status: without complication Qualified Code(s): E11.9 - Type 2 diabetes mellitus without complications Category: Medical Code(s): E11.9 - Type 2 diabetes mellitus without complications (3) Hyperlipidemia: Status: Acute Qualifiers: Hyperlipidemia type: mixed hyperlipidemia Qualified Code(s): E78.2 - Mixed hyperlipidemia Category: Medical Code(s): E78.5 - Hyperlipidemia, unspecified (4) Hypertension: Status: Acute Qualifiers: Hypertension type: primary hypertension Qualified Code(s): I10 - Essential (primary) hypertension Category: Medical Code(s): I10 - Essential (primary) hypertension (5) Pleural effusion, bilateral: Status: Resolved Category: Medical Code(s): J90 - Pleural effusion, not elsewhere classified (6) Right ventricular dilation: Status: Acute Category: Medical Code(s): I51.7 - Cardiomegaly (7) Dyspnea on exertion: Status: Acute Category: Medical Code(s): R06.09 - Other forms of dyspnea (8) Edema of both lower extremities: Status: Acute Category: Medical Code(s): R60.0 - Localized edema (9) Acute kidney injury: Status: Acute Category: Medical Code(s): N17.9 - Acute kidney failure, unspecified Plan Plan: 1. The patient was admitted for acute on chronic HFpEF. She has been diuresed overnight with a Bumex drip. She reports not having any significant urinary output since being started on the drip. Will make sure she has strict I's and O's. Increase her Bumex drip to 1 mg an hour for more diuresis. 2. Will restart spironolactone for diuresis as well. 3. The patient does have a large right pleural effusion and moderate left pleural effusion. She has been evaluated by pulmonology. No plans for thoracentesis at this time since she is on room air and maintaining her oxygen saturations. 4. Restart irbesartan and metoprolol for her HFpEF. 5. Will also restart her Jardiance for HFpEF. 6. Her blood pressure is elevated, but as mentioned above restarting irbesartan and metoprolol today and likely will improve blood pressure. 7. Her LDL goal is less than 100. Her LDL is 68. She is on a statin. 8. Creatinine is elevated at 1.6. Will continue to follow. 9. Echocardiogram shows normal ejection fraction and mild TR and mild MR for 10. Further recommendations will be made pending the patient's response to treatment. Thank you for the opportunity to help participate in the care of this patient. All recommendations and orders are per Dr. Sellers.
[2024-09-05] MEDS: BUMETANIDE 10 MG in 0.9 % SODIUM CHLORIDE 60 ML IV (15:44)
[2024-09-05] MEDS: SPIRONOLACTONE 25MG TABLET 25 MG PO (15:47)
--- NOTE | 2024-09-05 17:28 | PC.NURSE ---
pt is A&Ox4. pt has decreased lung sounds on the left side throughout. she has bilateral 2+ pitting edema on both lower extremities. we have been diuresing her today with a bumex drip. she has scuds for VTE in place because her platelet count dropped with lab work today. pt has no other needs at this time. call light within reach. safety measures in place.
[2024-09-05] MEDS: ATORVASTATIN 40MG TABLET 40 MG PO (20:28)
[2024-09-05] MEDS: PANTOPRAZOLE 40MG TABLET 40 MG PO (20:28)
[2024-09-06] VITALS (8 sets, daily range): BP systolic 155–171; BP diastolic 67–76; PULSE 60–71; RESP 16–18; TEMP 36.5–36.7; O2SAT 96–98; BMI 34.6
[2024-09-06] MEDS: BUMETANIDE 10 MG in 0.9 % SODIUM CHLORIDE 60 ML IV ×3 (00:56→23:17)
[2024-09-06 08:13] LABS: Hematocrit 34.2 % (37.0-47.0); Hemoglobin 11.3 g/dL (12.2-16.2); Immature Granulocytes % 0.4 %; Mean Corpuscular HGB Conc 33.0 g/dL (31.8-35.4); Mean Corpuscular Hemoglobin 29.5 pg (27.0-31.2); Mean Corpuscular Volume 89.3 fl (81-99); Nucleated Red Blood Cells % 0 %; Platelet Count 107 K/mm3 (142-424); Red Blood Count 3.83 M/mm3 (4.20-5.40); Red Cell Distribution Width-SD 43.2 fL; White Blood Count 7.7 K/mm3 (4.8-10.8)
[2024-09-06] MEDS: DAPAGLIFLOZIN PROPANEDIOL 10 MG TABLET PO (08:13)
[2024-09-06] MEDS: SPIRONOLACTONE 25MG TABLET 25 MG PO ×2 (08:13→15:03)
[2024-09-06] MEDS: IRBESARTAN 150MG TAB 150 MG PO ×2 (08:14→20:24)
[2024-09-06] MEDS: METOPROLOL SUCCINATE XL 100MG TABLET 100 MG PO (08:14)
[2024-09-06 08:45] LABS: Anion Gap 8.6 mEq/L (5-15); Blood Urea Nitrogen 32 mg/dl (7-17); Calcium 8.4 mg/dl (8.4-10.2); Carbon Dioxide 32 mmol/L (22.0-30.0); Chloride 101 mmol/L (98-107); Creatinine Clearance Estimated 46 mL/min (50-200); Creatinine,Serum 1.80 mg/dl (0.52-1.04); Estimated Glomerular Filt Rate 28 ml/min (>60); GFR (African American) 34 ML/MIN (>60); Glucose 169 mg/dl (74-100); Potassium 3.6 mmoL/L (3.5-5.1); Sodium 138 mmol/L (136-145)
--- NOTE | 2024-09-06 09:49 | P.PN_ITS ---
Subjective *Date: 09/06/24 *Time: 12:34 Interval history: No acute respiratory vents overnight. Patient denies any new respiratory complaints. Pulmonology Exam Inpatient Vital signs and Labs for Last 24 Hours: Temp Pulse Resp BP Pulse Ox O2 Del Method 97.9 F 71 16 160/70 H 98 Room Air 09/06/24 08:00 09/06/24 08:00 09/06/24 08:00 09/06/24 08:00 09/06/24 08:00 09/06/24 08:42 Laboratory Results - last 24 hr 09/05/24 05:47: Hemoglobin A1c 5.5 09/06/24 08:03: WBC 7.7 D, RBC 3.83 L, Hgb 11.3 L, Hct 34.2 L, MCV 89.3, MCH 29.5, MCHC 33.0, RDW 13.2, Plt Count 107 L, MPV 11.4 H, Neut % (Auto) 72.7, Lymph % (Auto) 20.7, [place] % (Auto) 5.5, Eos % (Auto) 0.3, Baso % (Auto) 0.4, Neut # (Auto) 5.6, Lymph # (Auto) 1.6, [place] # (Auto) 0.4, Eos # (Auto) 0.0, Baso # (Auto) 0.0, Sodium 138, Potassium 3.6, Chloride 101, Carbon Dioxide 32 H, Anion Gap 8.6, BUN 32 H D, Creatinine 1.80 H, Estimated Creat Clear 46, Estimated GFR 28 L, Est GFR ( Amer) 34 L, Glucose 169 H, Calcium 8.4 Temp Pulse Resp BP Pulse Ox O2 Del Method 97.9 F 68 16 167/81 H 97 Room Air 09/05/24 08:00 09/05/24 08:00 09/05/24 08:00 09/05/24 08:00 09/05/24 08:00 09/05/24 09:00 Laboratory Results - last 24 hr 09/04/24 16:36: WBC 6.2, RBC 4.08 L, Hgb 12.2, Hct 36.8 L, MCV 90.2, MCH 29.9, MCHC 33.2, RDW 13.1, Plt Count 113 L, MPV 10.9 H, Neut % (Auto) 61.5, Lymph % (Auto) 28.0, [place] % (Auto) 6.9, Eos % (Auto) 2.7, Baso % (Auto) 0.6, Neut # (Auto) 3.8, Lymph # (Auto) 1.8, [place] # (Auto) 0.4, Eos # (Auto) 0.2, Baso # (Auto) 0.0, D-Dimer 1.25 H, Sodium 140, Potassium 3.6, Chloride 105, Carbon Dioxide 30, Anion Gap 8.6, BUN 17, Creatinine 1.50 H, Estimated Creat Clear 54, Estimated GFR 35 L, Est GFR ( Amer) 42 L, Glucose 134 H, Calcium 8.6, Total Bilirubin 1.2, AST 37 H, ALT 17, Alkaline Phosphatase 134 H, Troponin I < 0.01, C-Reactive Protein 1.4, NT-Pro-B Natriuret Pep 5020 H 09/04/24 16:36: NT-Pro-B Natriuret Pep 4820 H, Total Protein 6.4, Albumin 3.6, Globulin 2.8, Albumin/Globulin Ratio 1.3, TSH 5.18 H, Free T4 Index 4.2 L, Thyroxine (T4) 12.1 H, T3 Uptake 35 09/04/24 19:17: Troponin I < 0.01 09/04/24 22:57: Troponin I < 0.01 09/05/24 05:47: WBC 2.4 L D, RBC 3.94 L, Hgb 11.3 L, Hct 35.0 L, MCV 88.8, MCH 28.7, MCHC 32.3, RDW 12.8, Plt Count 91 L, MPV 11.5 H, Neut % (Auto) 78.5, Lymph % (Auto) 19.9, [place] % (Auto) 0.8 L, Eos % (Auto) 0.0 L, Baso % (Auto) 0.4, Neut # (Auto) 1.9, Lymph # (Auto) 0.5 L, [place] # (Auto) 0.0 L, Eos # (Auto) 0.0, Baso # (Auto) 0.0, Total Counted 100, Neutrophils % (Manual) 74, Lymphocytes % (Manual) 25, Monocytes % (Manual) 1 L, Platelet Estimate Slight decrease, RBC Morphology Normal, Sodium 138, Potassium 4.3, Chloride 104, Carbon Dioxide 31 H, Anion Gap 7.3, BUN 20 H, Creatinine 1.60 H, Estimated Creat Clear 50, Estimated GFR 32 L, Est GFR ( Amer) 39 L, Glucose 181 H D, Calcium 8.2 L, Magnesium 1.2 L, Total Bilirubin 0.8, AST 28, ALT 12 D, Alkaline Phosphatase 110, NT-Pro-B Natriuret Pep 5620 H, Total Protein 5.5 L, Albumin 2.9 L D, Globulin 2.6, Albumin/Globulin Ratio 1.1 I & O for Labs for Last 24 Hours: Intake & Output 09/03/24 09/04/24 09/05/24 09/06/24 23:59 23:59 23:59 23:59 Intake Total 1649.583 / 1649.583 452 / 452 Output Total 3600 / 3600 550 / 550 Balance -1950.417 / -1950.417 -98 / -98 Weight 212 lb 1.6 oz 208 lb 4.8 oz 215 lb 4.8 oz Intake & Output 09/02/24 09/03/24 09/04/24 09/05/24 23:59 23:59 23:59 23:59 Intake Total 480 / 480 Output Total 1200 / 1200 Balance -720 / -720 Weight 212 lb 1.6 oz 208 lb 4.8 oz Constitutional: Present moderate distress Head: Present normocephalic and atraumatic ENT: Present normal exam, normal oropharynx and mucous membranes moist Neck: Present normal inspection and full ROM Respiratory: Present decreased breath sounds and able to speak in complete sentences; Absent prolonged expiratory phase, respiratory distress, rhonchi or wheezes Cardiac: Present S1/S2, Tachycardia and radial pulses present GI: Present soft and distention; Absent tenderness or guarding Rectal (female): Present deferred (female): Present deferred Skin: Present intact; Absent cyanosis or jaundice Neuro: Present alert, awake and oriented x 3 Extremities: Present normal inspection and edema; Absent clubbing or cyanosis Psychiatric: Present normal affect and cooperative Assessment and Plan *Assessment and plan (1) Pleural effusion, bilateral: Status: Resolved Category: Medical Code(s): J90 - Pleural effusion, not elsewhere classified Plan Ms. Reyes is a 68-year-old female never smoker, elevated right hemidiaphragm reported history of diabetes hypertension presented to the ER with worsening respiratory distress and pulmonary was called for further evaluation and management. Patient admits worsening lower extremity swelling. Denies any worsening respiratory distress. Patient had previous admissions for worsening bilateral effusions previously that resulted in transudative effusions likely from volume overload from CHF exacerbation. Afebrile. Hemodynamically stable. Leukopenia. CTA on this admission bilateral pleural effusions large right and moderate left. No dense consolidative/airspace changes noted. Adjacent atelectasis noted. No evidence of pulmonary embolism. On initial examination bilateral decreased breath sounds in lower lung lewis. Right greater than left decreased. Does not appear to be in any respiratory distress. On room air saturating 95% and above. Interval update: No acute respiratory events overnight. Continue to remain on room air. Cardiology following. Net negative volume status. Chest x-ray from this morning continue to show bilateral small to moderate pleural effusions in the setting of elevated right hemidiaphragm. No need for thoracentesis at this point of time. Plan: Incentive spirometry Will hold off on performing thoracentesis at this point of time as likely etiology would be a transudative effusion from volume overload. Will monitor clinically Volume optimization as per primary team and cardiology. # Thank you for involving pulmonary in this patient care. Will continue to follow.
--- NOTE | 2024-09-06 09:50 | XR_ITS ---
FINAL REPORT CLINICAL HISTORY: Effusions COMPARISON: 09/04/2024 FINDINGS: There are moderate-sized bilateral pleural effusions which appear stable from prior exam. There is bibasilar atelectasis. There is no pneumothorax. Mediastinum is unremarkable. Heart size is normal. IMPRESSION: Stable moderate pleural effusions. Reviewed, Interpreted and Dictated by Michelle Hull MD Transcribed by Maria Dolores Fraire Authenticated and [facility]
--- NOTE | 2024-09-06 11:38 | P.PN_ITS ---
Subjective *Date: 09/06/24 *Time: 11:38 Interval history: seen at bedside, denied Chest pain, has significant b/l leg swelling, denied N/V. Exam Data for Last 24 hours Vital signs and Labs for Last 24 Hours: Temp Pulse Resp BP Pulse Ox O2 Del Method 97.9 F 71 16 160/70 H 98 Room Air 09/06/24 08:00 09/06/24 08:00 09/06/24 08:00 09/06/24 08:00 09/06/24 08:00 09/06/24 11:00 Laboratory Results - last 24 hr 09/06/24 08:03: WBC 7.7 D, RBC 3.83 L, Hgb 11.3 L, Hct 34.2 L, MCV 89.3, MCH 29.5, MCHC 33.0, RDW 13.2, Plt Count 107 L, MPV 11.4 H, Neut % (Auto) 72.7, Lymph % (Auto) 20.7, [place] % (Auto) 5.5, Eos % (Auto) 0.3, Baso % (Auto) 0.4, Neut # (Auto) 5.6, Lymph # (Auto) 1.6, [place] # (Auto) 0.4, Eos # (Auto) 0.0, Baso # (Auto) 0.0, Sodium 138, Potassium 3.6, Chloride 101, Carbon Dioxide 32 H, Anion Gap 8.6, BUN 32 H D, Creatinine 1.80 H, Estimated Creat Clear 46, Estimated GFR 28 L, Est GFR ( Amer) 34 L, Glucose 169 H, Calcium 8.4 I & O for Last 24 hours: Intake & Output 09/03/24 09/04/24 09/05/24 09/06/24 23:59 23:59 23:59 23:59 Intake Total 1649.583 / 1649.583 552 / 552 Output Total 3600 / 3600 550 / 550 Balance -1950.417 / -1950.417 Weight 96.207 kg 94.483 kg 97.658 kg Constitutional Constitutional: no acute distress *Routine HEENT Exam Head: Present normocephalic Eye: Present EOMI and PERRL ENT: Present mucous membranes moist *Routine Neck Exam Neck: Present supple; Absent lymphadenopathy *Routine Respiratory Exam Respiratory: Present CTA bilaterally *Routine Cardiovascular Exam Cardiovascular: Present RRR *Routine Abdominal Exam Abdominal: Present soft and normoactive bowel sounds; Absent tenderness *Routine Extremities Exam Extremities: Present edema; Absent cyanosis or clubbing Comments: +++ b/l LE edema *Routine Skin Exam Skin: Present warm; Absent rash *Routine Neurological Exam Neurological: Present alert and oriented X3 Assessment and Plan *Assessment and plan (1) Pleural effusion, bilateral: Status: Resolved Category: Medical Code(s): J90 - Pleural effusion, not elsewhere classified (2) CHF exacerbation: Status: Acute Qualifiers: Heart failure type: diastolic Qualified Code(s): I50.33 - Acute on chronic diastolic (congestive) heart failure Category: Medical Code(s): I50.9 - Heart failure, unspecified (3) Edema of both lower extremities: Status: Acute Category: Medical Code(s): R60.0 - Localized edema (4) Obesity (BMI 30-39.9): Status: Chronic Category: Medical Code(s): E66.9 - Obesity, unspecified (5) Diabetes mellitus: Status: Chronic Qualifiers: Diabetes mellitus type: type 2 Diabetes mellitus long term acute care registered nurse insulin use: without long term acute care registered nurse use Diabetes mellitus complication status: without complication Qualified Code(s): E11.9 - Type 2 diabetes mellitus without complications Category: Medical Code(s): E11.9 - Type 2 diabetes mellitus without complications (6) Acute kidney injury: Status: Acute Category: Medical Code(s): N17.9 - Acute kidney failure, unspecified Plan consulted pulmonary, no plan for thoracentesis continue IV bumex, strict Is and Os consulted cardiology - continue diuresis ISS continue atoravstatin, jardiance, metoprolol continue aldactone 25mg Daily Cr is worsening, discussed with cardiology, likely to hold diuresis today DVT PPx- SCDs for now, monitor Cr, likely dc 1-2 days pending improvement
--- NOTE | 2024-09-06 13:23 | EXP.CARD.PN ---
Subjective Subjective Date: 09/06/24 Time: 11:00 Principal diagnosis: acute HFpEF Interval history: This is a 68-year-old white female who presented to the emergency department with shortness of breath and edema. The patient was subsequently admitted to the hospital for acute on chronic exacerbation of HFpEF. She is beng diuresed on a Bumex drip overnight. She had a -1900 fluid balance this morning. She was found to have a large right pleural effusion and a moderate left pleural effusion. She is on room air, maintaining her oxygen saturations. States her Shortness of breath and ajay are unchanged. denies CP or pressure. denies fever, chills, N/V/D, PND or orthopnea. Exam Data for Last 24 hours Vital signs and Labs for Last 24 Hours: Temp Pulse Resp BP Pulse Ox O2 Del Method 97.9 F 71 16 160/70 H 98 Room Air 09/06/24 08:00 09/06/24 08:00 09/06/24 08:00 09/06/24 08:00 09/06/24 08:00 09/06/24 13:00 Laboratory Results - last 24 hr 09/06/24 08:03: WBC 7.7 D, RBC 3.83 L, Hgb 11.3 L, Hct 34.2 L, MCV 89.3, MCH 29.5, MCHC 33.0, RDW 13.2, Plt Count 107 L, MPV 11.4 H, Neut % (Auto) 72.7, Lymph % (Auto) 20.7, [place] % (Auto) 5.5, Eos % (Auto) 0.3, Baso % (Auto) 0.4, Neut # (Auto) 5.6, Lymph # (Auto) 1.6, [place] # (Auto) 0.4, Eos # (Auto) 0.0, Baso # (Auto) 0.0, Sodium 138, Potassium 3.6, Chloride 101, Carbon Dioxide 32 H, Anion Gap 8.6, BUN 32 H D, Creatinine 1.80 H, Estimated Creat Clear 46, Estimated GFR 28 L, Est GFR ( Amer) 34 L, Glucose 169 H, Calcium 8.4 I & O for Last 24 hours: Intake & Output 09/03/24 09/04/24 09/05/24 09/06/24 23:59 23:59 23:59 23:59 Intake Total 1649.583 / 1649.583 552 / 552 Output Total 3600 / 3600 550 / 550 Balance -1950.417 / -1950.417 2 / 2 Weight 212 lb 1.6 oz 208 lb 4.8 oz 215 lb 4.8 oz Constitutional Constitutional: no acute distress and average body habitus *Routine HEENT Exam Head: Present normocephalic and atraumatic ENT: Present mucous membranes moist *Routine Neck Exam Neck: Present supple, full ROM and normal carotid upstroke; Absent JVD, carotid bruit or lymphadenopathy *Routine Respiratory Exam Respiratory: Present CTA bilaterally, normal respiratory effort, able to speak in complete sentences and symmetric chest movement *Routine Cardiovascular Exam Cardiovascular: Present RRR, Normal S1 and Normal S2; Absent murmur or gallop *Routine Abdominal Exam Abdominal: Present soft and normoactive bowel sounds; Absent tenderness, distended or organomegaly *Routine Extremities Exam Extremities: Present edema, full ROM, pulses intact and normal capillary refill; Absent cyanosis or clubbing *Routine Skin Exam Skin: Present intact and warm; Absent erythema *Routine Neurological Exam Neurological: Present alert, oriented X3 and CN II-XII intact; Absent sensory deficit or motor deficit Routine Psychiatric Exam Psychiatric: Present normal affect Progress Note: A&P Assessment and plan (1) Acute on chronic heart failure with preserved ejection fraction (HFpEF): Status: Acute (2) Pleural effusion, bilateral: Status: Resolved (3) Edema of both lower extremities: Status: Acute (4) Dyspnea on exertion: Status: Acute (5) Right ventricular dilation: Status: Acute (6) Diabetes mellitus: Status: Chronic (7) Hyperlipidemia: Status: Acute (8) Hypertension: Status: Acute (9) Acute kidney injury: Status: Acute Assessment and Plan Assessment and Plan for All Diagnoses:: Plan: 1. The patient was admitted for acute on chronic HFpEF. She has been diuresed overnight with a Bumex drip at 1 mg/hr. She has a -1900 mL fluid balance overnight. continue Bumex drip at this time. 2. Continue spironolactone for diuresis. 3. The patient does have a large right pleural effusion and moderate left pleural effusion. She has been evaluated by pulmonology. No plans for thoracentesis at this time since she is on room air and maintaining her oxygen saturations. 4. Continue irbesartan and metoprolol for her HFpEF. 5. Continue Jardiance for HFpEF. 6. Her blood pressure is elevated today. continued diuresis should improve BP. 7. Her LDL goal is less than 100. Her LDL is 68. She is on a statin. 8. Creatinine is elevated at 1.8 today, up from 1.6 yesterday. Repeat BMP this afternoon. 9. Echocardiogram shows normal ejection fraction and mild TR and mild MR for 10. Further recommendations will be made pending the patient's response to treatment. Thank you for the opportunity to help participate in the care of this patient. All recommendations and orders are per Dr. Sellers.
[2024-09-06 13:59] LABS: Chloride 98 mmol/L (98-107)
[2024-09-06 14:00] LABS: Potassium 3.2 mmoL/L (3.5-5.1); Sodium 134 mmol/L (136-145)
[2024-09-06 14:02] LABS: Blood Urea Nitrogen 33 mg/dl (7-17); Creatinine,Serum 1.80 mg/dl (0.52-1.04)
[2024-09-06 14:03] LABS: Anion Gap 6.2 mEq/L (5-15); Calcium 8.1 mg/dl (8.4-10.2); Carbon Dioxide 33 mmol/L (22.0-30.0); Creatinine Clearance Estimated 46 mL/min (50-200); Estimated Glomerular Filt Rate 28 ml/min (>60); GFR (African American) 34 ML/MIN (>60); Glucose 152 mg/dl (74-100)
[2024-09-06] MEDS: POTASSIUM CHLORIDE 20MEQ TAB 40 MEQ PO ×2 (15:03→17:30)
--- NOTE | 2024-09-06 17:17 | PC.NURSE ---
pt a&ox4. resting supine in bed with at bedside. tolerating RA with sats >90%. SCDS in place. bumex drip running @ 10ml/hr. intake and output charted. no complaints of pain. 2+ edema noted to bilateral lower extremities. no needs at this time. call light within reach.
[2024-09-06] MEDS: PANTOPRAZOLE 40MG TABLET 40 MG PO (20:24)
[2024-09-06] MEDS: ATORVASTATIN 40MG TABLET 40 MG PO (20:24)
[2024-09-07] VITALS: PULSE 60
[2024-09-07 04:00] VITALS: BP 165/78; PULSE 69; PULSE 70; RESP 18; TEMP 36.8; O2SAT 95; BMI 33.7
[2024-09-07 06:42] LABS: Hematocrit 32.9 % (37.0-47.0); Hemoglobin 10.9 g/dL (12.2-16.2); Immature Granulocytes % 0.2 %; Mean Corpuscular HGB Conc 33.1 g/dL (31.8-35.4); Mean Corpuscular Hemoglobin 29.5 pg (27.0-31.2); Mean Corpuscular Volume 89.2 fl (81-99); Nucleated Red Blood Cells % 0 %; Platelet Count 111 K/mm3 (142-424); Red Blood Count 3.69 M/mm3 (4.20-5.40); Red Cell Distribution Width-SD 43.4 fL; White Blood Count 5.9 K/mm3 (4.8-10.8)
[2024-09-07 07:04] LABS: Alanine Aminotransferase 13 U/L (12-78); Albumin Level 2.6 g/dl (3.5-5.0); Albumin/Globulin Ratio 1.0 (1.1-1.8); Alkaline Phosphatase 96 U/L (38-126); Anion Gap 8.2 mEq/L (5-15); Aspartate Amino Transferase 30 U/L (14-36); Bilirubin,Total 0.4 mg/dl (0.2-1.3); Blood Urea Nitrogen 35 mg/dl (7-17); Calcium 8.0 mg/dl (8.4-10.2); Carbon Dioxide 33 mmol/L (22.0-30.0); Chloride 101 mmol/L (98-107); Creatinine Clearance Estimated 43 mL/min (50-200); Creatinine,Serum 1.90 mg/dl (0.52-1.04); Estimated Glomerular Filt Rate 26 ml/min (>60); GFR (African American) 32 ML/MIN (>60); Globulin 2.7 g/dL (1.3-3.2); Glucose 143 mg/dl (74-100); Magnesium 1.7 mg/dl (1.6-2.3); Potassium 4.2 mmoL/L (3.5-5.1); Sodium 138 mmol/L (136-145); Total Protein,Serum 5.3 g/dl (6.3-8.2)
[2024-09-07 08:00] VITALS: BP 165/71; PULSE 70; RESP 16; TEMP 36.7; O2SAT 98
[2024-09-07] MEDS: DAPAGLIFLOZIN PROPANEDIOL 10 MG TABLET PO (09:37)
[2024-09-07] MEDS: SPIRONOLACTONE 25MG TABLET 25 MG PO ×2 (09:37→16:21)
[2024-09-07] MEDS: IRBESARTAN 150MG TAB 150 MG PO ×2 (09:37→20:42)
[2024-09-07] MEDS: METOPROLOL SUCCINATE XL 100MG TABLET 100 MG PO (09:37)
[2024-09-07] MEDS: ACETAMINOPHEN 325MG TAB 650 MG PO (09:43)
--- NOTE | 2024-09-07 09:44 | EXP.PULM.PN ---
Subjective *Date: 09/07/24 *Time: 11:37 Interval history: No acute respiratory events overnight. Continue to remain on room air. Pulmonology Exam Inpatient Vital signs and Labs for Last 24 Hours: Temp Pulse Resp BP Pulse Ox O2 Del Method 98.0 F 70 16 165/71 H 98 Room Air 09/07/24 08:00 09/07/24 08:00 09/07/24 08:00 09/07/24 08:00 09/07/24 08:00 09/07/24 09:00 Laboratory Results - last 24 hr 09/06/24 13:41: Sodium 134 L, Potassium 3.2 L, Chloride 98, Carbon Dioxide 33 H, Anion Gap 6.2, BUN 33 H, Creatinine 1.80 H, Estimated Creat Clear 46, Estimated GFR 28 L, Est GFR ( Amer) 34 L, Glucose 152 H, Calcium 8.1 L 09/07/24 06:20: WBC 5.9, RBC 3.69 L, Hgb 10.9 L, Hct 32.9 L, MCV 89.2, MCH 29.5, MCHC 33.1, RDW 13.2, Plt Count 111 L, MPV 12.1 H, Neut % (Auto) 64.7, Lymph % (Auto) 27.0, [place] % (Auto) 7.0, Eos % (Auto) 0.8, Baso % (Auto) 0.3, Neut # (Auto) 3.8, Lymph # (Auto) 1.6, [place] # (Auto) 0.4, Eos # (Auto) 0.1, Baso # (Auto) 0.0, Sodium 138, Potassium 4.2 D, Chloride 101, Carbon Dioxide 33 H, Anion Gap 8.2, BUN 35 H, Creatinine 1.90 H, Estimated Creat Clear 43, Estimated GFR 26 L, Est GFR ( Amer) 32 L, Glucose 143 H, Calcium 8.0 L, Magnesium 1.7 D, Total Bilirubin 0.4, AST 30, ALT 13, Alkaline Phosphatase 96, Total Protein 5.3 L, Albumin 2.6 L, Globulin 2.7, Albumin/Globulin Ratio 1.0 L Temp Pulse Resp BP Pulse Ox O2 Del Method 97.9 F 68 16 167/81 H 97 Room Air 09/05/24 08:00 09/05/24 08:00 09/05/24 08:00 09/05/24 08:00 09/05/24 08:00 09/05/24 09:00 Laboratory Results - last 24 hr 09/04/24 16:36: WBC 6.2, RBC 4.08 L, Hgb 12.2, Hct 36.8 L, MCV 90.2, MCH 29.9, MCHC 33.2, RDW 13.1, Plt Count 113 L, MPV 10.9 H, Neut % (Auto) 61.5, Lymph % (Auto) 28.0, [place] % (Auto) 6.9, Eos % (Auto) 2.7, Baso % (Auto) 0.6, Neut # (Auto) 3.8, Lymph # (Auto) 1.8, [place] # (Auto) 0.4, Eos # (Auto) 0.2, Baso # (Auto) 0.0, D-Dimer 1.25 H, Sodium 140, Potassium 3.6, Chloride 105, Carbon Dioxide 30, Anion Gap 8.6, BUN 17, Creatinine 1.50 H, Estimated Creat Clear 54, Estimated GFR 35 L, Est GFR ( Amer) 42 L, Glucose 134 H, Calcium 8.6, Total Bilirubin 1.2, AST 37 H, ALT 17, Alkaline Phosphatase 134 H, Troponin I < 0.01, C-Reactive Protein 1.4, NT-Pro-B Natriuret Pep 5020 H 09/04/24 16:36: NT-Pro-B Natriuret Pep 4820 H, Total Protein 6.4, Albumin 3.6, Globulin 2.8, Albumin/Globulin Ratio 1.3, TSH 5.18 H, Free T4 Index 4.2 L, Thyroxine (T4) 12.1 H, T3 Uptake 35 09/04/24 19:17: Troponin I < 0.01 09/04/24 22:57: Troponin I < 0.01 09/05/24 05:47: WBC 2.4 L D, RBC 3.94 L, Hgb 11.3 L, Hct 35.0 L, MCV 88.8, MCH 28.7, MCHC 32.3, RDW 12.8, Plt Count 91 L, MPV 11.5 H, Neut % (Auto) 78.5, Lymph % (Auto) 19.9, [place] % (Auto) 0.8 L, Eos % (Auto) 0.0 L, Baso % (Auto) 0.4, Neut # (Auto) 1.9, Lymph # (Auto) 0.5 L, [place] # (Auto) 0.0 L, Eos # (Auto) 0.0, Baso # (Auto) 0.0, Total Counted 100, Neutrophils % (Manual) 74, Lymphocytes % (Manual) 25, Monocytes % (Manual) 1 L, Platelet Estimate Slight decrease, RBC Morphology Normal, Sodium 138, Potassium 4.3, Chloride 104, Carbon Dioxide 31 H, Anion Gap 7.3, BUN 20 H, Creatinine 1.60 H, Estimated Creat Clear 50, Estimated GFR 32 L, Est GFR ( Amer) 39 L, Glucose 181 H D, Calcium 8.2 L, Magnesium 1.2 L, Total Bilirubin 0.8, AST 28, ALT 12 D, Alkaline Phosphatase 110, NT-Pro-B Natriuret Pep 5620 H, Total Protein 5.5 L, Albumin 2.9 L D, Globulin 2.6, Albumin/Globulin Ratio 1.1 I & O for Labs for Last 24 Hours: Intake & Output 09/04/24 09/05/24 09/06/24 09/07/24 23:59 23:59 23:59 23:59 Intake Total 1649.583 / 2596.556 2275.000 / 1732.000 720 / 720 Output Total 3600 / 3600 4650 / 4650 1200 / 1200 Balance -1950.417 / -1950.417 -3158.000 / -2918.000 -480 / -480 Weight 212 lb 1.6 oz 208 lb 4.8 oz 215 lb 4.8 oz 209 lb 11.2 oz Intake & Output 09/02/24 09/03/24 09/04/24 09/05/24 23:59 23:59 23:59 23:59 Intake Total 480 / 480 Output Total 1200 / 1200 Balance -720 / -720 Weight 212 lb 1.6 oz 208 lb 4.8 oz Constitutional: Present moderate distress Head: Present normocephalic and atraumatic ENT: Present normal exam, normal oropharynx and mucous membranes moist Neck: Present normal inspection and full ROM Respiratory: Present decreased breath sounds and able to speak in complete sentences; Absent prolonged expiratory phase, respiratory distress, rhonchi or wheezes Cardiac: Present S1/S2, Tachycardia and radial pulses present GI: Present soft and distention; Absent tenderness or guarding Rectal (female): Present deferred (female): Present deferred Skin: Present intact; Absent cyanosis or jaundice Neuro: Present alert, awake and oriented x 3 Extremities: Present normal inspection and edema; Absent clubbing or cyanosis Psychiatric: Present normal affect and cooperative Assessment and Plan *Assessment and plan (1) Pleural effusion, bilateral: Status: Resolved Category: Medical Code(s): J90 - Pleural effusion, not elsewhere classified Plan Ms. Reyes is a 68-year-old female never smoker, elevated right hemidiaphragm reported history of diabetes hypertension presented to the ER with worsening respiratory distress and pulmonary was called for further evaluation and management. Patient admits worsening lower extremity swelling. Denies any worsening respiratory distress. Patient had previous admissions for worsening bilateral effusions previously that resulted in transudative effusions likely from volume overload from CHF exacerbation. Afebrile. Hemodynamically stable. Leukopenia. CTA on this admission bilateral pleural effusions large right and moderate left. No dense consolidative/airspace changes noted. Adjacent atelectasis noted. No evidence of pulmonary embolism. On initial examination bilateral decreased breath sounds in lower lung lewis. Right greater than left decreased. Does not appear to be in any respiratory distress. On room air saturating 95% and above. Interval update: No acute respiratory vents overnight. Continue to remain on room air. Continue to have net negative volume status. Plan: Incentive spirometry Will hold off on performing thoracentesis at this point of time as likely etiology would be a transudative effusion from volume overload. Will monitor clinically Volume optimization as per primary team and cardiology. # Thank you for involving pulmonary in this patient care. Will continue to follow.
--- NOTE | 2024-09-07 10:11 | CA_ITS ---
FINAL REPORT TECHNIQUE: Multiple transverse and longitudinal scans were performed of the femoral popliteal deep venous system, with augmentation and compression maneuvers. CLINICAL HISTORY: EDEMA BILATERAL LE'S FINDINGS: Normal phasic flow was noted in the visualized deep venous system. No intraluminal increased echogenicity is noted to suggest thrombus. There is normal compression and augmentation of the venous structures. No abnormal venous collaterals are seen. IMPRESSION: No evidence of deep venous thrombosis of the bilateral lower extremities. Reviewed, Interpreted and Dictated by Michelle Hull MD Transcribed by Sisi Kamara Authenticated and [facility]
--- NOTE | 2024-09-07 11:14 | EXP.PN ---
Subjective *Date: 09/07/24 *Time: 11:14 Interval history: seen at bedside, no fevers overnight, denied CP, SOB, no complains today Exam Data for Last 24 hours Vital signs and Labs for Last 24 Hours: Temp Pulse Resp BP Pulse Ox O2 Del Method 98.0 F 70 16 165/71 H 98 Room Air 09/07/24 08:00 09/07/24 08:00 09/07/24 08:00 09/07/24 08:00 09/07/24 08:00 09/07/24 09:00 Laboratory Results - last 24 hr 09/06/24 13:41: Sodium 134 L, Potassium 3.2 L, Chloride 98, Carbon Dioxide 33 H, Anion Gap 6.2, BUN 33 H, Creatinine 1.80 H, Estimated Creat Clear 46, Estimated GFR 28 L, Est GFR ( Amer) 34 L, Glucose 152 H, Calcium 8.1 L 09/07/24 06:20: WBC 5.9, RBC 3.69 L, Hgb 10.9 L, Hct 32.9 L, MCV 89.2, MCH 29.5, MCHC 33.1, RDW 13.2, Plt Count 111 L, MPV 12.1 H, Neut % (Auto) 64.7, Lymph % (Auto) 27.0, [place] % (Auto) 7.0, Eos % (Auto) 0.8, Baso % (Auto) 0.3, Neut # (Auto) 3.8, Lymph # (Auto) 1.6, [place] # (Auto) 0.4, Eos # (Auto) 0.1, Baso # (Auto) 0.0, Sodium 138, Potassium 4.2 D, Chloride 101, Carbon Dioxide 33 H, Anion Gap 8.2, BUN 35 H, Creatinine 1.90 H, Estimated Creat Clear 43, Estimated GFR 26 L, Est GFR ( Amer) 32 L, Glucose 143 H, Calcium 8.0 L, Magnesium 1.7 D, Total Bilirubin 0.4, AST 30, ALT 13, Alkaline Phosphatase 96, Total Protein 5.3 L, Albumin 2.6 L, Globulin 2.7, Albumin/Globulin Ratio 1.0 L I & O for Last 24 hours: Intake & Output 09/04/24 09/05/24 09/06/24 09/07/24 23:59 23:59 23:59 23:59 Intake Total 1649.583 / 4344.217 5098.000 / 1732.000 720 / 720 Output Total 3600 / 3600 4650 / 4650 1200 / 1200 Balance -1950.417 / -1950.417 -3158.000 / -2918.000 -480 / -480 Weight 96.207 kg 94.483 kg 97.658 kg 95.118 kg Constitutional Constitutional: no acute distress *Routine HEENT Exam Head: Present normocephalic Eye: Present EOMI and PERRL ENT: Present mucous membranes moist *Routine Neck Exam Neck: Present supple; Absent lymphadenopathy *Routine Respiratory Exam Respiratory: Present CTA bilaterally *Routine Cardiovascular Exam Cardiovascular: Present RRR *Routine Abdominal Exam Abdominal: Present soft and normoactive bowel sounds; Absent tenderness *Routine Extremities Exam Extremities: Present edema; Absent cyanosis or clubbing Comments: +++ b/l LE edema *Routine Skin Exam Skin: Present warm; Absent rash *Routine Neurological Exam Neurological: Present alert and oriented X3 Assessment and Plan *Assessment and plan (1) Pleural effusion, bilateral: Status: Resolved Category: Medical Code(s): J90 - Pleural effusion, not elsewhere classified (2) CHF exacerbation: Status: Acute Qualifiers: Heart failure type: diastolic Qualified Code(s): I50.33 - Acute on chronic diastolic (congestive) heart failure Category: Medical Code(s): I50.9 - Heart failure, unspecified (3) Edema of both lower extremities: Status: Acute Category: Medical Code(s): R60.0 - Localized edema (4) Obesity (BMI 30-39.9): Status: Chronic Category: Medical Code(s): E66.9 - Obesity, unspecified (5) Diabetes mellitus: Status: Chronic Qualifiers: Diabetes mellitus type: type 2 Diabetes mellitus detention insulin use: without superintendent [employer] use Diabetes mellitus complication status: without complication Qualified Code(s): E11.9 - Type 2 diabetes mellitus without complications Category: Medical Code(s): E11.9 - Type 2 diabetes mellitus without complications (6) Acute kidney injury: Status: Acute Category: Medical Code(s): N17.9 - Acute kidney failure, unspecified Plan consulted pulmonary, no plan for thoracentesis discontinue IV bumex, switch to PO bumex, strict Is and Os consulted cardiology - continue diuresis ISS continue atoravstatin, jardiance, metoprolol continue aldactone 25mg Daily Cr is worsening, discussed with cardiology DVT PPx- SCDs for now monitor Cr, likely dc 1-2 days pending improvement
[2024-09-07] MEDS: BUMETANIDE 1 MG TABLET PO ×2 (11:30→16:21)
[2024-09-07] MEDS: MAGNESIUM SULFATE IN WATER 2 GM/50 ML PIGGYBACK IV ×2 (11:30→14:40)
--- NOTE | 2024-09-07 11:36 | EXP.CARD.PN ---
Subjective Subjective Date: 09/07/24 Time: 09:30 Principal diagnosis: acute HFpEF Interval history: This is a 68-year-old female presented to the emergency department shortness of breath and edema. She is being treated for acute on chronic HFpEF exacerbation. She has been being diuresed with IV Lasix. She had a -3 L fluid balance. Her IV Bumex has been stopped. Her creatinine did elevate to 1.9. Will switch her over to oral Lasix at this time. She states that her shortness of breath has resolved. She is still complaining of bilateral lower extremity edema with no improvement in her edema. She denies chest pain or pressure. She denies any fever, chills, nausea, vomiting, diarrhea, PND orthopnea. Exam Data for Last 24 hours Vital signs and Labs for Last 24 Hours: Temp Pulse Resp BP Pulse Ox O2 Del Method 98.0 F 70 16 165/71 H 98 Room Air 09/07/24 08:00 09/07/24 08:00 09/07/24 08:00 09/07/24 08:00 09/07/24 08:00 09/07/24 09:00 Laboratory Results - last 24 hr 09/06/24 13:41: Sodium 134 L, Potassium 3.2 L, Chloride 98, Carbon Dioxide 33 H, Anion Gap 6.2, BUN 33 H, Creatinine 1.80 H, Estimated Creat Clear 46, Estimated GFR 28 L, Est GFR ( Amer) 34 L, Glucose 152 H, Calcium 8.1 L 09/07/24 06:20: WBC 5.9, RBC 3.69 L, Hgb 10.9 L, Hct 32.9 L, MCV 89.2, MCH 29.5, MCHC 33.1, RDW 13.2, Plt Count 111 L, MPV 12.1 H, Neut % (Auto) 64.7, Lymph % (Auto) 27.0, [place] % (Auto) 7.0, Eos % (Auto) 0.8, Baso % (Auto) 0.3, Neut # (Auto) 3.8, Lymph # (Auto) 1.6, [place] # (Auto) 0.4, Eos # (Auto) 0.1, Baso # (Auto) 0.0, Sodium 138, Potassium 4.2 D, Chloride 101, Carbon Dioxide 33 H, Anion Gap 8.2, BUN 35 H, Creatinine 1.90 H, Estimated Creat Clear 43, Estimated GFR 26 L, Est GFR ( Amer) 32 L, Glucose 143 H, Calcium 8.0 L, Magnesium 1.7 D, Total Bilirubin 0.4, AST 30, ALT 13, Alkaline Phosphatase 96, Total Protein 5.3 L, Albumin 2.6 L, Globulin 2.7, Albumin/Globulin Ratio 1.0 L I & O for Last 24 hours: Intake & Output 09/04/24 09/05/24 09/06/24 09/07/24 23:59 23:59 23:59 23:59 Intake Total 1649.583 / 7273.653 8667.000 / 1732.000 720 / 720 Output Total 3600 / 3600 4650 / 4650 1200 / 1200 Balance -1950.417 / -1950.417 -3158.000 / -2918.000 -480 / -480 Weight 212 lb 1.6 oz 208 lb 4.8 oz 215 lb 4.8 oz 209 lb 11.2 oz Constitutional Constitutional: no acute distress and average body habitus *Routine HEENT Exam Head: Present normocephalic and atraumatic ENT: Present mucous membranes moist *Routine Neck Exam Neck: Present supple, full ROM and normal carotid upstroke; Absent JVD, carotid bruit or lymphadenopathy *Routine Respiratory Exam Respiratory: Present CTA bilaterally, normal respiratory effort, able to speak in complete sentences and symmetric chest movement *Routine Cardiovascular Exam Cardiovascular: Present RRR, Normal S1 and Normal S2; Absent murmur or gallop *Routine Abdominal Exam Abdominal: Present soft and normoactive bowel sounds; Absent tenderness, distended or organomegaly *Routine Extremities Exam Extremities: Present edema, full ROM, pulses intact and normal capillary refill; Absent cyanosis or clubbing *Routine Skin Exam Skin: Present intact and warm; Absent erythema *Routine Neurological Exam Neurological: Present alert, oriented X3 and CN II-XII intact; Absent sensory deficit or motor deficit Routine Psychiatric Exam Psychiatric: Present normal affect Progress Note: A&P Assessment and plan (1) Acute on chronic heart failure with preserved ejection fraction (HFpEF): Status: Acute (2) Pleural effusion, bilateral: Status: Resolved (3) Edema of both lower extremities: Status: Acute (4) Obesity (BMI 30-39.9): Status: Chronic (5) Diabetes mellitus: Status: Chronic (6) Acute kidney injury: Status: Acute (7) Right ventricular dilation: Status: Acute (8) Hyperlipidemia: Status: Acute (9) Hypertension: Status: Acute Assessment and Plan Assessment and Plan for All Diagnoses:: Plan: 1. The patient was admitted for acute on chronic HFpEF. She has been diuresed with IV Bumex. She has a -3 L fluid balance. Will stop IV Bumex and put her on Bumex 1 mg p.o. twice daily for continued diuresis. 2. Continue spironolactone for diuresis. 3. The patient does have a large right pleural effusion and moderate left pleural effusion. She has been evaluated by pulmonology. No plans for thoracentesis at this time since she is on room air and maintaining her oxygen saturations. 4. Continue irbesartan and metoprolol for her HFpEF. 5. Continue Jardiance for HFpEF. 6. Her blood pressure is elevated today. Increase Toprol-XL to 150 mg p.o. daily for better blood pressure control. 7. Her LDL goal is less than 100. Her LDL is 68. She is on a statin. 8. Creatinine is elevated at 1.9 today. The patient will need to be kept prerenal to keep her out of pulmonary edema. 9. Echocardiogram shows normal ejection fraction and mild TR and mild MR for 10. Further recommendations will be made pending the patient's response to treatment. The patient can be discharged over the weekend from a cardiac standpoint. If she is discharged she will need to follow-up in cardiology clinic in 1 to 2 weeks. She will need to be discharged on the following cardiac medications: Lipitor 40 mg p.o. nightly Jardiance 10 mg daily Irbesartan 150 mg p.o. twice daily Toprol-XL 150 mg daily Aldactone 25 mg twice daily Bumex 1 mg twice daily Thank you for the opportunity to help participate in the care of this patient. All recommendations and orders are per Dr. Sellers.
[2024-09-07 12:00] VITALS: BP 167/77; PULSE 64; PULSE 70; RESP 16; TEMP 36.4; O2SAT 98
[2024-09-07] MEDS: METOPROLOL SUCCINATE XL 50MG TABLET 50 MG PO (13:19)
[2024-09-07 16:00] VITALS: BP 169/81; PULSE 60; RESP 18; TEMP 36.6; O2SAT 97
--- NOTE | 2024-09-07 18:32 | PC.NURSE ---
Pt is alert and oriented x4. Lungs are clear but diminished. She remains on RA w/O2 sats measuring >95%. Shes been NSR on telemetry. She was up to the chair this afternoon and tolerated well. No questions or concerns at this time. Bed is locked in and in the lowest position, call light is within reach.
[2024-09-07 20:00] VITALS: BP 164/76; PULSE 56; PULSE 60; RESP 16; TEMP 36.5; O2SAT 96
[2024-09-07] MEDS: PANTOPRAZOLE 40MG TABLET 40 MG PO (20:42)
[2024-09-07] MEDS: ATORVASTATIN 40MG TABLET 40 MG PO (20:42)
[2024-09-08] VITALS (7 sets, daily range): BP systolic 146–186; BP diastolic 68–77; PULSE 59–88; RESP 16; TEMP 36.7–36.8; O2SAT 94–97; BMI 31.5
[2024-09-08 06:24] LABS: Hematocrit 30.6 % (37.0-47.0); Hemoglobin 10.3 g/dL (12.2-16.2); Immature Granulocytes % 0.2 %; Mean Corpuscular HGB Conc 33.7 g/dL (31.8-35.4); Mean Corpuscular Hemoglobin 30.2 pg (27.0-31.2); Mean Corpuscular Volume 89.7 fl (81-99); Nucleated Red Blood Cells % 0 %; Platelet Count 87 K/mm3 (142-424); Red Blood Count 3.41 M/mm3 (4.20-5.40); Red Cell Distribution Width-SD 42.7 fL; White Blood Count 4.4 K/mm3 (4.8-10.8)
[2024-09-08 06:33] LABS: Alanine Aminotransferase 13 U/L (12-78); Albumin Level 2.4 g/dl (3.5-5.0); Albumin/Globulin Ratio 1.0 (1.1-1.8); Alkaline Phosphatase 90 U/L (38-126); Anion Gap 6.2 mEq/L (5-15); Aspartate Amino Transferase 29 U/L (14-36); Bilirubin,Total 0.4 mg/dl (0.2-1.3); Blood Urea Nitrogen 36 mg/dl (7-17); Calcium 8.0 mg/dl (8.4-10.2); Carbon Dioxide 36 mmol/L (22.0-30.0); Chloride 98 mmol/L (98-107); Creatinine Clearance Estimated 38 mL/min (50-200); Creatinine,Serum 2.00 mg/dl (0.52-1.04); Estimated Glomerular Filt Rate 25 ml/min (>60); GFR (African American) 30 ML/MIN (>60); Globulin 2.5 g/dL (1.3-3.2); Glucose 160 mg/dl (74-100); Potassium 4.2 mmoL/L (3.5-5.1); Sodium 136 mmol/L (136-145); Total Protein,Serum 4.9 g/dl (6.3-8.2)
[2024-09-08] MEDS: ACETAMINOPHEN 325MG TAB 650 MG PO ×2 (08:33→16:37)
[2024-09-08] MEDS: BUMETANIDE 1 MG TABLET PO ×2 (08:34→16:35)
[2024-09-08] MEDS: METOPROLOL SUCCINATE XL 100MG TABLET 150 MG PO (08:34)
[2024-09-08] MEDS: DAPAGLIFLOZIN PROPANEDIOL 10 MG TABLET PO (08:34)
[2024-09-08] MEDS: SPIRONOLACTONE 25MG TABLET 25 MG PO ×2 (08:34→16:35)
[2024-09-08] MEDS: IRBESARTAN 150MG TAB 150 MG PO ×2 (08:34→20:55)
[2024-09-08 09:47] LABS: Magnesium 2.2 mg/dl (1.6-2.3)
--- NOTE | 2024-09-08 17:07 | EXP.PN ---
Subjective *Date: 09/08/24 *Time: 17:07 Interval history: seen at bedside, no fevers overnight, denied CP, SOB, still complains of mild SOB on walking but has been walking to and from bathroom for her needs Exam Data for Last 24 hours Vital signs and Labs for Last 24 Hours: Temp Pulse Resp BP Pulse Ox O2 Del Method 98.1 F 63 16 150/71 H 97 Room Air 09/08/24 15:57 09/08/24 16:00 09/08/24 15:57 09/08/24 15:57 09/08/24 15:57 09/08/24 15:57 Laboratory Results - last 24 hr 09/08/24 06:15: WBC 4.4 L D, RBC 3.41 L, Hgb 10.3 L, Hct 30.6 L, MCV 89.7, MCH 30.2, MCHC 33.7, RDW 13.0, Plt Count 87 L, MPV 11.0 H, Neut % (Auto) 63.7, Lymph % (Auto) 24.6, [place] % (Auto) 8.7, Eos % (Auto) 2.3, Baso % (Auto) 0.5, Neut # (Auto) 2.8, Lymph # (Auto) 1.1, [place] # (Auto) 0.4, Eos # (Auto) 0.1, Baso # (Auto) 0.0, Sodium 136, Potassium 4.2, Chloride 98, Carbon Dioxide 36 H, Anion Gap 6.2, BUN 36 H, Creatinine 2.00 H, Estimated Creat Clear 38, Estimated GFR 25 L, Est GFR ( Amer) 30 L, Glucose 160 H, Calcium 8.0 L, Magnesium 2.2 D, Total Bilirubin 0.4, AST 29, ALT 13, Alkaline Phosphatase 90, Total Protein 4.9 L, Albumin 2.4 L, Globulin 2.5, Albumin/Globulin Ratio 1.0 L I & O for Last 24 hours: Intake & Output 09/05/24 09/06/24 09/07/24 09/08/24 23:59 23:59 23:59 23:59 Intake Total 1649.583 / 7046.292 7600.000 / 0276.424 9887 / 1979 360 / 360 Output Total 3600 / 3600 4650 / 4650 1200 / 1200 1600 / 1600 Balance -1950.417 / -1950.417 -3158.000 / -2918.000 780 / 780 -1240 / -1240 Weight 94.483 kg 97.658 kg 95.118 kg 89.018 kg Constitutional Constitutional: no acute distress and average body habitus *Routine HEENT Exam Head: Present normocephalic and atraumatic ENT: Present mucous membranes moist *Routine Neck Exam Neck: Present supple, full ROM and normal carotid upstroke; Absent JVD, carotid bruit or lymphadenopathy *Routine Respiratory Exam Respiratory: Present CTA bilaterally, normal respiratory effort, able to speak in complete sentences and symmetric chest movement *Routine Cardiovascular Exam Cardiovascular: Present RRR, Normal S1 and Normal S2; Absent murmur or gallop *Routine Abdominal Exam Abdominal: Present soft and normoactive bowel sounds; Absent tenderness, distended or organomegaly *Routine Extremities Exam Extremities: Present edema, full ROM, pulses intact and normal capillary refill; Absent cyanosis or clubbing *Routine Skin Exam Skin: Present intact and warm; Absent erythema *Routine Neurological Exam Neurological: Present alert, oriented X3 and CN II-XII intact; Absent sensory deficit or motor deficit Routine Psychiatric Exam Psychiatric: Present normal affect Assessment and Plan *Assessment and plan (1) Pleural effusion, bilateral: Status: Resolved Category: Medical Code(s): J90 - Pleural effusion, not elsewhere classified (2) CHF exacerbation: Status: Acute Qualifiers: Heart failure type: diastolic Qualified Code(s): I50.33 - Acute on chronic diastolic (congestive) heart failure Category: Medical Code(s): I50.9 - Heart failure, unspecified (3) Edema of both lower extremities: Status: Acute Category: Medical Code(s): R60.0 - Localized edema (4) Obesity (BMI 30-39.9): Status: Chronic Category: Medical Code(s): E66.9 - Obesity, unspecified (5) Diabetes mellitus: Status: Chronic Qualifiers: Diabetes mellitus type: type 2 Diabetes mellitus half-way insulin use: without half-way use Diabetes mellitus complication status: without complication Qualified Code(s): E11.9 - Type 2 diabetes mellitus without complications Category: Medical Code(s): E11.9 - Type 2 diabetes mellitus without complications (6) Acute kidney injury: Status: Acute Category: Medical Code(s): N17.9 - Acute kidney failure, unspecified Plan Acute CHF pleural effusion consulted pulmonary, no plan for thoracentesis discontinue IV bumex, switch to PO bumex 1mg BID strict Is and Os consulted cardiology - recommended continuing diuresis KRIS - likely due to diuresis - dc IV bumex - monitor Cr - Baseline Cr 1.4-1.5 today Cr 2.0 monitor BMP chronic medical condition DM HTN HLD ISS continue atoravstatin, jardiance, metoprolol continue aldactone 25mg Daily Cr is worsening, discussed with cardiology DVT PPx- SCDs for now monitor Cr, likely dc 1-2 days pending Cr improvement
[2024-09-08] MEDS: PANTOPRAZOLE 40MG TABLET 40 MG PO (20:55)
[2024-09-08] MEDS: ATORVASTATIN 40MG TABLET 40 MG PO (20:55)
[2024-09-09] VITALS: BP 165/71; PULSE 60; PULSE 62; RESP 16; TEMP 36.6; O2SAT 96
[2024-09-09 04:00] VITALS: BP 164/75; PULSE 60; PULSE 65; RESP 16; TEMP 36.8; O2SAT 94; BMI 30.4
--- NOTE | 2024-09-09 04:16 | PC.NURSE ---
patient is alert and oriented x4, rested well this shift, no complaints of pain this shift, tolerating room air with o2 sats >95%, remains NSR on telemetry, no needs voiced, call button is in reach
[2024-09-09 06:39] LABS: Hematocrit 33.0 % (37.0-47.0); Hemoglobin 10.9 g/dL (12.2-16.2); Immature Granulocytes % 0.4 %; Mean Corpuscular HGB Conc 33.0 g/dL (31.8-35.4); Mean Corpuscular Hemoglobin 29.8 pg (27.0-31.2); Mean Corpuscular Volume 90.2 fl (81-99); Nucleated Red Blood Cells % 0 %; Platelet Count 97 K/mm3 (142-424); Red Blood Count 3.66 M/mm3 (4.20-5.40); Red Cell Distribution Width-SD 42.4 fL; White Blood Count 4.5 K/mm3 (4.8-10.8)
[2024-09-09 06:57] LABS: Alanine Aminotransferase 13 U/L (12-78); Albumin Level 2.6 g/dl (3.5-5.0); Albumin/Globulin Ratio 1.0 (1.1-1.8); Alkaline Phosphatase 100 U/L (38-126); Anion Gap 5.6 mEq/L (5-15); Aspartate Amino Transferase 32 U/L (14-36); Bilirubin,Total 0.4 mg/dl (0.2-1.3); Blood Urea Nitrogen 36 mg/dl (7-17); Calcium 8.3 mg/dl (8.4-10.2); Carbon Dioxide 38 mmol/L (22.0-30.0); Chloride 97 mmol/L (98-107); Creatinine Clearance Estimated 36 mL/min (50-200); Creatinine,Serum 2.00 mg/dl (0.52-1.04); Estimated Glomerular Filt Rate 25 ml/min (>60); GFR (African American) 30 ML/MIN (>60); Globulin 2.7 g/dL (1.3-3.2); Glucose 163 mg/dl (74-100); Potassium 4.6 mmoL/L (3.5-5.1); Sodium 136 mmol/L (136-145); Total Protein,Serum 5.3 g/dl (6.3-8.2)
[2024-09-09 08:00] VITALS: BP 162/70; PULSE 67; RESP 16; TEMP 36.7; O2SAT 95
--- NOTE | 2024-09-09 08:27 | EXP.DC.SUM ---
General Admission date:: 09/04/24 Discharge date: 09/09/24 HPI HPI HPI: Ms. Dsouza, come in due to shortness of breath. Chest x-ray has found a large right pleural effusion smaller 1 on the left., Vital signs are stable ER doctor talked with Dr. Hancock a Bumex drip was started., Plan at this time is to admit to the floor keep on continuous cardiac monitoring and continuous pulse ox. Will monitor fluid out at this time and consult cardiology, and have consulted pulmonology. Patient's past medical history shows that she had a right pleural effusion in April and that they drained off almost 2 L. Pathology showed atypical mesothelial cells. Patient also has a GFR of 35 renal insufficiency. Stress test and other test if showed that she has normal left ejection function at 65%. Physical exam actually remarkable due to the condition of the scans that actually hear breath sounds on the right side without really any Rales or rhonchi. Left is clear despite showing a small pleural effusion. Noting also that the abdomen is soft and nontender lower extremities are extremely large legs but there is no pitting edema they are actually soft, no significant ascites was also found on the chest CT scan. Also labs noting that the patient's protein levels are normal. So at this time does not show obvious signs of congestive heart failure, or any acute infection, has chronically had decreased renal function. Patient is also noted that due to use of antibiotics it made her nausea increased she actually had lost 80 pounds in the last year and a half used to be diabetic but now it is very controlled on Farxiga noting her last hemoglobin A1c was 5.4. Will repeat that lab in the a.m. to make sure that there is no recurrence of elevated blood sugars. Can see the possibility for the right thoracentesis to be repeated the cytology can be repeated to look for any underlying other causes for this pleural effusion. Hospital Course Hospital Course Hospital Course: Ms. Reyes is a 68-year-old female never smoker, elevated right hemidiaphragm reported history of diabetes hypertension presented to the ER with worsening respiratory distress. Admitted for suspected pleural effusion and acute on chronic HFpEF. Pulmonology and cardiology consulted to assist with care. Responded to medical management. No thoracentesis performed during admission. Improved clinically with volume optimization. Stable to discharge home. Problems addressed as follows: Acute on chronic HFpEF Pleural effusion Elevated right hemidiaphragm -Admission, chest CT obtained showing no evidence of PE but had large right pleural effusion and moderate left pleural effusion. Consolidation of right lower lobe with milder consolidation in left lower lobe. Given her normal white count, stability on room air, decision made not to treat with any antibiotics. Presentation most consistent with heart failure and volume overload. Pulmonology and cardiology consulted to assist with care. Initiated on Bumex drip with good response. Able to transition to IV Bumex twice daily and then oral Bumex twice daily. Cardiology recommended continue diuresis at discharge. [place] patient was stable to discharge home, medicine agrees. Follow-up in 1 to 2 weeks for further management. No decision for thoracentesis after discussion with pulmonology. Continue medications as below and medication list for chronic conditions. Of note, echo obtained during admission showing normal BiV systolic function with biatrial dilation and mild MR mild TR RVSP measured at 30 to 35 mmHg however. chronic medical conditions: HTN HLD Continue home regimens including Lipitor 40 mg nightly, dapagliflozin 10 mg daily, irbesartan 150 mg twice daily, metoprolol succinate 150 mg daily, spironolactone 25 mg twice daily, and Bumex 1 mg twice daily. - Glucose remained in the mid 100s during admission. A1c normal at 5.5 during admission. Suspect dapagliflozin is for heart failure not diabetes CKD 3B. Creatinine essentially stable between 1.8 and 2.0. BUN in the mid 30s. Total time spent on discharge 33 minutes in counseling, documentation, chart review, and direct care with patient. Exam Data for Last 24 hours Vital signs and Labs for Last 24 Hours: Temp Pulse Resp BP Pulse Ox O2 Del Method 98.3 F 65 16 164/75 H 94 L Room Air 09/09/24 04:00 09/09/24 04:00 09/09/24 04:00 09/09/24 04:00 09/09/24 04:00 09/09/24 06:41 Laboratory Results - last 24 hr 09/08/24 06:15: Magnesium 2.2 D 09/09/24 06:20: WBC 4.5 L, RBC 3.66 L, Hgb 10.9 L, Hct 33.0 L, MCV 90.2, MCH 29.8, MCHC 33.0, RDW 12.8, Plt Count 97 L, MPV 12.0 H, Neut % (Auto) 64.4, Lymph % (Auto) 24.7, [place] % (Auto) 7.1, Eos % (Auto) 2.7, Baso % (Auto) 0.7, Neut # (Auto) 2.9, Lymph # (Auto) 1.1, [place] # (Auto) 0.3, Eos # (Auto) 0.1, Baso # (Auto) 0.0, Sodium 136, Potassium 4.6, Chloride 97 L, Carbon Dioxide 38 H, Anion Gap 5.6, BUN 36 H, Creatinine 2.00 H, Estimated Creat Clear 36, Estimated GFR 25 L, Est GFR ( Amer) 30 L, Glucose 163 H, Calcium 8.3 L, Total Bilirubin 0.4, AST 32, ALT 13, Alkaline Phosphatase 100, Total Protein 5.3 L, Albumin 2.6 L, Globulin 2.7, Albumin/Globulin Ratio 1.0 L I & O for Last 24 hours: Intake & Output 09/06/24 09/07/24 09/08/24 09/09/24 23:59 23:59 23:59 23:59 Intake Total 1492.000 / 8067.090 0451 / 1979 1200 / 1440 240 / 240 Output Total 4650 / 4650 1200 / 1200 1600 / 2500 1425 / 1425 Balance -3158.000 / -2918.000 780 / 780 -400 / -1060 -1185 / -1185 Weight 97.658 kg 95.118 kg 89.018 kg 85.871 kg Constitutional Constitutional: no acute distress, obese, chronically ill appearing and cooperative *Routine HEENT Exam Head: Present normocephalic Eye: Present EOMI and PERRL ENT: Present mucous membranes moist *Routine Neck Exam Neck: Present supple; Absent lymphadenopathy *Routine Respiratory Exam Respiratory: Present CTA bilaterally and crackles (Right base); Absent rhonchi or wheezes *Routine Cardiovascular Exam Cardiovascular: Present RRR *Routine Abdominal Exam Abdominal: Present soft and normoactive bowel sounds; Absent tenderness *Routine Rectal Exam Patient deferred: visual exam *Routine Exam Patient deferred: external exam *Routine Extremities Exam Extremities: Present edema; Absent cyanosis or clubbing *Routine Skin Exam Skin: Present intact and warm; Absent rash *Routine Neurological Exam Neurological: Present alert, oriented X3 and moving all extremities; Absent altered mental status Results Data Completed and Pending Labs on day of discharge: Labs from last 24 hours 09/09/24 09/08/24 06:20 06:15 WBC 4.5 L RBC 3.66 L Hgb 10.9 L Hct 33.0 L MCV 90.2 MCH 29.8 MCHC 33.0 RDW 12.8 Plt Count 97 L MPV 12.0 H Neut % (Auto) 64.4 Lymph % (Auto) 24.7 [place] % (Auto) 7.1 Eos % (Auto) 2.7 Baso % (Auto) 0.7 Neut # (Auto) 2.9 Lymph # (Auto) 1.1 [place] # (Auto) 0.3 Eos # (Auto) 0.1 Baso # (Auto) 0.0 Sodium 136 Potassium 4.6 Chloride 97 L Carbon Dioxide 38 H Anion Gap 5.6 BUN 36 H Creatinine 2.00 H Estimated Creat Clear 36 Estimated GFR 25 L Est GFR ( Amer) 30 L Glucose 163 H Calcium 8.3 L Magnesium 2.2 D Total Bilirubin 0.4 AST 32 ALT 13 Alkaline Phosphatase 100 Total Protein 5.3 L Albumin 2.6 L Globulin 2.7 Albumin/Globulin Ratio 1.0 L DS: Diagnosis Discharge Diagnosis (1) Pleural effusion, bilateral: Status: Resolved Code(s): J90 - Pleural effusion, not elsewhere classified (2) CHF exacerbation: Status: Acute Code(s): I50.9 - Heart failure, unspecified Qualifiers: Heart failure type: diastolic Qualified Code(s): I50.33 - Acute on chronic diastolic (congestive) heart failure (3) Edema of both lower extremities: Status: Acute Code(s): R60.0 - Localized edema (4) Obesity (BMI 30-39.9): Status: Chronic Code(s): E66.9 - Obesity, unspecified (5) Diabetes mellitus: Status: Chronic Code(s): E11.9 - Type 2 diabetes mellitus without complications Qualifiers: Diabetes mellitus complication status: without complication Diabetes mellitus fci insulin use: without fci use Diabetes mellitus type: type 2 Qualified Code(s): E11.9 - Type 2 diabetes mellitus without complications (6) Acute kidney injury: Status: Acute Code(s): N17.9 - Acute kidney failure, unspecified Meds Home Medications and Allergies Home Medications ?Medication ?Instructions ?Recorded ?Confirmed ?Type atorvastatin 40 mg tablet 40 mg PO HS #30 tabs 08/30/24 09/04/24 Rx dapagliflozin propanediol 10 mg 10 mg PO DAILY #30 tabs 08/30/24 09/04/24 Rx tablet (Farxiga) spironolactone 25 mg tablet 25 mg PO BIDL #60 tabs 08/30/24 09/04/24 Rx bumetanide 1 mg tablet 1 mg PO BID #60 tabs 09/04/24 09/05/24 Rx irbesartan 150 mg tablet 150 mg PO BID #60 tabs 09/04/24 09/05/24 Rx metoprolol succinate 100 mg 150 mg (1.5 x 100 mg) PO DAILY 30 09/09/24 Rx tablet,extended release 24 hr days #45 tabs (Toprol XL) New Prescriptions to Start Prescriptions: metoprolol succinate [Toprol XL] Jaziel Hancock Allergies Allergy/AdvReac Type Severity Reaction Status Date / Time pentazocine (From [facility]) Allergy Dizziness Verified 09/04/24 16:44 Discharge Plan Disposition Patient Disposition: Home, Self-Care Condition: Fair Discharge Order Discharge Orders: Discharge Order (Routine); Ordered 09/09/24 Ordered By: Jaziel Hancock Follow up Plan Follow up with: Marjorie Sim APRN [Nurse Practitioner, Cardiology] - 1 week Referral Note: Office will call with follow up appointment Catherine Morales APRN [Primary Care Provider, Medical] - 09/12/24 3:45 pm Prescriptions/Medication Reconciliation: Continued irbesartan 150 mg tablet 150 mg PO BID Qty: 60 5RF bumetanide 1 mg tablet 1 mg PO BID Qty: 60 5RF atorvastatin 40 mg tablet 40 mg PO HS Qty: 30 5RF dapagliflozin propanediol [Farxiga] 10 mg tablet 10 mg PO DAILY Qty: 30 5RF spironolactone 25 mg tablet 25 mg PO BIDL Qty: 60 5RF Changed metoprolol succinate [Toprol XL] 100 mg tablet extended release 24 hr 150 mg PO DAILY 30 Days Qty: 45 2RF Problem Reconciliation Problems Reviewed?: Yes Patient Discharge Instructions ACTIVITY: Continue current activity DIET: continue same diet Patient Instructions: Heart-Healthy Diet, DI for Heart Failure, DI for Pleural Effusion, Stop Light Heart Failure Print Language: [place] Providers Primary Care Provider: Catherine Morales Admit Provider: Jaziel Hancock Attending Provider: Jaziel Hancock
[2024-09-09] MEDS: METOPROLOL SUCCINATE XL 100MG TABLET 150 MG PO (08:47)
[2024-09-09] MEDS: SPIRONOLACTONE 25MG TABLET 25 MG PO (08:47)
[2024-09-09] MEDS: DAPAGLIFLOZIN PROPANEDIOL 10 MG TABLET PO (08:47)
[2024-09-09] MEDS: BUMETANIDE 1 MG TABLET PO (08:47)
[2024-09-09] MEDS: ACETAMINOPHEN 325MG TAB 650 MG PO (08:54)
[2024-09-09] MEDS: IRBESARTAN 150MG TAB 150 MG PO (09:42)
--- NOTE | 2024-09-10 10:42 | SW/DCPLANNER ---
Spoke with patient on the phone. Patient stated that she is doing well. Patient stated that she is aware of her upcoming appointments. Patient stated that she was not prescribed any new medicine. Patient stated that she has no concerns or questions at this time. Cheryle Lima
== END 2024-09-09 13:46 | disposition home or self-care (01) | DRG 291 ==
LOC: ER 17:39 → 2ND 20:20
PROVIDERS: Internal Medicine; Nurse Practitioner Family; Physician Assistant; Admitting Provider Internal Medicine Adolescent Medicine; Emergency Provider Student in an Organized Health Care Education/Training Program; PCP Nurse Practitioner; Visit Provider Internal Medicine Adolescent Medicine
DX: I11.0 Hypertensive heart disease with heart failure (principal); I50.33 Acute on chronic diastolic (congestive) heart failure; N17.9 Acute kidney failure, unspecified; E66.01 Morbid (severe) obesity due to excess calories; D72.819 Decreased white blood cell count, unspecified; I08.1 Rheumatic disorders of both mitral and tricuspid valves; Z68.34 Body mass index [BMI] 34.0-34.9, adult; E78.5 Hyperlipidemia, unspecified; E11.9 Type 2 diabetes mellitus without complications; Z79.899 Other long term (current) drug therapy; Z79.84 Long term (current) use of oral hypoglycemic drugs; Z88.8 Allergy status to other drugs, medicaments and biological substances; Z96.652 Presence of left artificial knee joint
CPT/HCPCS: 36415; 71045; 71275; 80048; 80053; 83036; 83735; 83880; 84436; 84443; 84479; 84484; 85007; 85025; 85378; 86140; 93306; 93970; J0780; J1100; J1200; J1650; J1939; J3475; J7030; Q9967

== ENCOUNTER 2024-09-20 11:29 | Outpatient (CLI) | payer BC, SELFPAY ==
--- OUTSIDE RECORDS SUMMARY | 2024-09-12 15:45 | XMS_ITS | Encounter Summary ---
[facility] Address [address] [place] [address] Care Team Providers Care Labour Market Economist Name Role Phone Catherine Morales PERSONNEL RECRUITER Primary Care Provider [phone] Reason for Visit * Reason Comments Hospital Follow Up Visit Encounter Details Date Type Department Care Team (Late st Contact Info) Description 09/12/2024 3:45 PM EDT Office Visit [facility] [address] [place] [address] [place] [phone] Catherine Morales, PERSONNEL RECRUITER [address] [place], [place] [id number] Controlled type 2 diabetes mellitus without complication, without long-term current use of insulin (Primary Dx); Morbid (severe) obesity due to excess calories; Primary hypertension; S/P TKR (total knee replacement), left; Stage 3a chronic kidney disease; Tricuspid valve insufficiency, unspecified etiology Social History Tobacco Use Types Packs/Day Years [...] on file documented as of this encounter Last Filed Vital Signs Vital Sign Reading Time Taken Comments Blood Pressure 140/82 09/12/2024 4:03 PM EDT Pulse 68 09/12/2024 4:03 PM EDT Temperature 36.9 C (98.4 F) 09/12/2024 4:03 PM EDT Respiratory Rate 18 09/12/2024 4:03 PM EDT Oxygen Saturation 98% 09/12/2024 4:03 PM EDT Inhaled Oxygen Concentration - - Weight 97.1 kg (214 lb) 09/12/2024 4:03 PM EDT Height 165.1 cm (5' 5 ) 09/12/2024 4:03 PM EDT Body Mass Index 35.61 09/12/2024 4:03 PM EDT documented in this encounter Progress Notes * Catherine Morales APRN - 09/19/2024 5:45 PM EDTAssociated Problem(s): Controlled type 2 diabetes mellitus without complication, without long-term c urrent use of insulin Since experiencing significant weight loss patient has been able to discontinue most of her glycemic medications. Currently only utilizing Farxiga 10 mg daily. Most recent available A1c was 4.3% * Catherine Morales APRN - 09/19/2024 5:44 PM EDTAssociated Problem(s): Tricuspid regurgitation Moderate tricuspid regurgitation noted on echocardiogram * Catherine Morales APRN - 09/19/2024 5:44 PM EDTAssociated Problem(s): Stage 3a chronic kidney disease Patient with longstanding stage IIIa chronic kidney disease with baseline creatinine of 1.2-1.3 * Catherine Morales APRN - 09/19/2024 5:43 PM EDTAssociated Problem(s): S/P TKR (total knee replacement), left Patient underwent left TKR 1 year ago. Since losing weight her appliance malfunctioned, causing repeat surgery couple of months ago * Catherine Morales APRN - 09/19/2024 5:43 PM EDTAssociated Problem(s): Hypertension Patient checks blood pressure regularly at home with averages of less than 120/60 to 70s. Her bloodpressure is noted to be 140/82 in office today. -Continue irbesartan 150 mg -Continue metoprolol XL 150 mg daily -Continue triamterene HCTZ 37.5-25 mg * Catherine Morales APRN - 09/19/2024 5:42 PM EDTAssociated Problem(s): Morbid (severe) obesity due to excess calories Patient's (Body mass index is 35.61 kg/m .) indicates that they are obese (BMI >30) with healthconditions that include hypertension . Weight is improving with lifestyle modifications. BMI is above average; BMI management plan is completed. We discussed portion control and increasing exercise. Over the last year patient has experienced a greater than 50 pound weight loss. Her weight loss began after having all of her teeth extracted, just after that she experienced a bout of gastritis causing further weight loss. After those episodes she states she was never really able to hold as much food as she once did * Catherine Morales APRN - 09/12/2024 3:45 PM EDT Images from the original note were not included. Office Note Name: Frances Reyes : 1955 Chief Complaint Hospital Follow Up Visit Subjective History of Present Illness: Frances Reyes is a 68 y.o. female who presents today for follow-up after hospitalization at [facility] 09[facility]04[facility]. Patient required surgical intervention of her previous left knee replacementon August 02. Patient states at time of discharge from her intervention she was told to hold her Bumex, spironolactone, Farxiga and irbesartan. She states over the next 6 weeks she began to retain significant amounts of fluid, ultimately developing shortness of breath and experiencing 40 pound weightgain. Patient presented to the emergency department where she was admitted for IV diuresis. At the time of discharge she had lost 26 pounds of fluid weight. Patient now back on her regular medication regimen of Farxiga 10 mg daily, irbesartan 150 mg daily, metoprolol 150 mg daily, spironolactone 25mg daily, triamterene-HCTZ 37.5-25 mg daily and bumetanide 1 mg daily. Patient's blood pressure in office today within acceptable range, 140/82. Review of Systems Constitutional: Negative for chills, fatigue and fever. Respiratory: Negative for cough, chest tightness, shortness of breath and wheezing. Cardiovascular: Positive for leg swelling. Negative for chest pain and palpitations. Gastrointestinal: Negative for abdominal pain, constipation, diarrhea, nausea and vomiting. Endocrine: Negative for polydipsia and polyuria. Musculoskeletal: Positive for arthralgias. Neurological: Negative for dizziness, weakness, light-headedness and headache. Objective Past Medical History: Diagnosis Date Chronic kidney disease, stage 3a Diabetes mellitus, type 2 Dysuria Elevated liver function tests Hyperglycemia Hyperlipidemia Hypertension Obesity Past Surgical History: Procedure Laterality Date SECTION with bilateral tubal ligation CHOLECYSTECTOMY complicated by common duct stones requiring ERCP TOTAL ABDOMINAL HYSTERECTOMY WITH SALPINGO OOPHORECTOMY Family History Problem Relation Age of Onset Other Mother Cancer Father Vital Signs BP 140/82 (BP Location: Left arm, Patient Position: Sitting, Cuff Size: Adult) Pulse 68 Temp 98.4 ??F (36.9 ??C) (Temporal) Resp 18 Ht 165.1 cm (65 ) Wt 97.1 kg (214 lb) SpO2 98% BMI 35.61 kg/m?? Estimated body mass index is 35.61 kg/m?? as calculated from the following: Height as of this encounter: 165.1 cm (65 ). Weight as of this encounter: 97.1 kg (214 lb). Facility age limit for growth %tru is 20 years. Physical Exam Vitals reviewed. Constitutional: Appearance: Normal appearance. HENT: Head: Normocephalic and atraumatic. Right Ear: Tympanic membrane, ear canal and external ear normal. Left Ear: Tympanic membrane, ear canal and external ear normal. Nose: Nose normal. Mouth/Throat: Mouth: Mucous membranes are moist. Pharynx: Oropharynx is clear. Eyes: Conjunctiva/sclera: Conjunctivae normal. Pupils: Pupils are equal, round, and reactive to light. Cardiovascular: Rate and Rhythm: Normal rate and regular rhythm. Pulses: Normal pulses. Heart sounds: Normal heart sounds. Comments: Right lower extremity with trace edema, left lower extremity with +1 edema Pulmonary: Effort: Pulmonary effort is normal. Breath sounds: Normal breath sounds. Abdominal: General: Bowel sounds are normal. Palpations: Abdomen is soft. Musculoskeletal: Cervical back: Neck supple. Skin: General: Skin is warm and dry. Neurological: Mental Status: She is alert and oriented to person, place, and time. Psychiatric: Mood and Affect: Mood normal. Behavior: Behavior normal. POCT Results (if applicable): Results for orders placed or performed in visit on 04/17/24 Adult Transthoracic Echo Complete W/ Cont if Necessary Per Protocol Collection Time: 04/17/24 9:42 AM Result Value Ref Range EF(MOD-bp) 66.9 % LVIDd 4.1 cm LVIDs 2.8 cm IVSd 1.63 cm LVPWd 1.35 cm FS 32.7 % IVS/LVPW 1.21 cm ESV(cubed) 21.0 ml LV Sys Vol (BSA corrected) 24.8 cm2 EDV(cubed) 68.9 ml LV Rosario Vol (BSA corrected) 69.5 cm2 LV mass(C)d 238.5 grams LVOT area 3.1 cm2 LVOT diam 2.00 cm EDV(MOD-sp2) 141.0 ml EDV(MOD-sp4) 141.0 ml ESV(MOD-sp2) 43.6 ml ESV(MOD-sp4) 50.3 ml SV(MOD-sp2) 97.4 ml SV(MOD-sp4) 90.7 ml SVi(MOD-SP2) 48.0 ml/m2 SVi(MOD-SP4) 44.7 ml/m2 SVi (LVOT) 53.6 ml/m2 EF(MOD-sp2) 69.1 % EF(MOD-sp4) 64.3 % MV E max chivo 134.0 cm/sec MV A max chivo 102.0 cm/sec MV dec time 0.24 sec MV E/A 1.31 LA ESV Index (BP) 35.6 ml/m2 Med Peak E' Chivo 6.3 cm/sec Lat Peak E' Chivo 7.0 cm/sec TR max chivo 326.0 cm/sec Avg E/e' ratio 20.15 SV(LVOT) 108.7 ml RVIDd 3.1 cm RV Base 3.0 cm RV Mid 2.37 cm RV Length 6.3 cm TAPSE (>1.6) 2.35 cm RV S' 17.4 cm/sec LA dimension (2D) 3.9 cm LV V1 max 152.0 cm/sec LV V1 max PG 9.2 mmHg LV V1 mean PG 5.0 mmHg LV V1 VTI 34.6 cm Ao pk chivo 177.0 cm/sec Ao max PG 12.5 mmHg Ao mean PG 7.0 mmHg Ao V2 VTI 42.9 cm HARINI(I,D) 2.5 cm2 MV max PG 6.3 mmHg MV mean PG 3.0 mmHg MV V2 VTI 32.9 cm MV P1/2t 84.8 msec MVA(P1/2t) 2.6 cm2 MVA(VTI) 3.3 cm2 MV dec slope 435.0 cm/sec2 TR max PG 42.5 mmHg Ao root diam 3.1 cm Sinus 2.9 cm RVSP(TR) 47 mmHg RAP systole 5 mmHg Assessment and Plan Diagnoses and all orders for this visit: 1. Controlled type 2 diabetes mellitus without complication, without long-term current use of insulin (Primary) Assessment & Plan: Since experiencing significant weight loss patient has been able to discontinue most of her glycemic medications. Currently only utilizing Farxiga 10 mg daily. Most recent available A1c was 4.3% 2. Morbid (severe) obesity due to excess calories Assessment & Plan: Patient's (Body mass index is 35.61 kg/m .) indicates that they are obese (BMI >30) with healthconditions that include hypertension . Weight is improving with lifestyle modifications. BMI is above average; BMI management plan is completed. We discussed portion control and increasing exercise. Over the last year patient has experienced a greater than 50 pound weight loss. Her weight loss began after having all of her teeth extracted, just after that she experienced a bout of gastritis causing further weight loss. After those episodes she states she was never really able to hold as much food as she once did 3. Primary hypertension Assessment & Plan: Patient checks blood pressure regularly at home with averages of less than 120/60 to 70s. Her bloodpressure is noted to be 140/82 in office today. -Continue irbesartan 150 mg -Continue metoprolol XL 150 mg daily -Continue triamterene HCTZ 37.5-25 mg 4. S/P TKR (total knee replacement), left Assessment & Plan: Patient underwent left TKR 1 year ago. Since losing weight her appliance malfunctioned, causing repeat surgery couple of months ago 5. Stage 3a chronic kidney disease Assessment & Plan: Patient with longstanding stage IIIa chronic kidney disease with baseline creatinine of 1.2-1.3 6. Tricuspid valve insufficiency, unspecified etiology Assessment & Plan: Moderate tricuspid regurgitation noted on echocardiogram Follow Up No follow-ups on file. Catherine Morales APRN documented in this encounter Plan of Treatment Not on file documented as of this encounter Visit Diagnoses Diagnosis Controlled type 2 diabetes mellitus without complication, without long-term current use of insulin- Primary Morbid (severe) obesity due to excess calories Primary hypertension Unspecified essential hypertension S/P TKR (total knee replacement), left Stage 3a chronic kidney disease Tricuspid valve insufficiency, unspecified etiology documented in this encounter Care Teams Labour Market Economist Relationship Specialty Start Date End Date Catherine Morales APRN [address] [place], [place] [id number] PCP - General Family Medicine 11/30/21 documented as of this encounter
--- OUTSIDE RECORDS SUMMARY | 2024-09-20 11:31 | XMS_ITS | Clinical Summary ---
Author Organization [facility] Address [address] [place] [address] Care Team Providers Care Physicist Astrophysics Name Role Phone AndrewCatherine moore Ayse ESCOBEDO Primary Care Provider [phone] Allergies Active Allergy Reactions Criticality Noted Date [...] (bumetanide) 90 tablet 3 04/19/19 25 Active Farxiga 10 MG tablet Take 10 mg by mouth Daily. 09/01/19 25 Active irbesartan (AVAPRO) 150 MG tablet Take 1 tablet by mouth Daily. 09/05/19 25 Active metoprolol succinate XL (TOPROL-XL) 100 MG 24 hr tablet Take 1 tablet by mouth Daily. 09/05/19 Active metoprolol succinate XL (TOPROL-XL) 50 MG 24 hr tablet Take 1 tablet by mouth Daily. 09/05/19 Active spironolactone (ALDACTONE) 25 MG tablet Take 1 tablet by mouth Daily. 09/04/19 Active Active Problems Problem Noted Date Diagnosed Date Impaired functional mobility, balance, gait, and endurance 07/04/2024 Perioral dermatitis 04/17/2024 Assessment & Plan (04/17/2024 11:23 AM EST): She recently developed a perioral dermatitis that will not heal. She stopped taking Bumex because she felt like it was drying her out and because the skin lesion. Tricuspid regurgitation 04/17/2024 Assessment & Plan (09/19/2024 5:44 PM EDT): Moderate tricuspid regurgitation noted on echocardiogram Assessment & Plan (04/17/2024 11:26 AM EST): [...] chronic kidney disease 03/02/2024 Assessment & Plan (09/19/2024 5:44 PM EDT): Patient with longstanding stage IIIa chronic kidney disease with baseline creatinine of 1.2-1.3 Assessment & Plan (03/05/2024 12:51 PM EST): [...] severe unilateral swelling, warmth and calf pain. [facility] unable to schedule patient for outpatient duplex today. Will contact her with first available spot. Patient advised if symptoms worsen or she develops shortness of breath report to the emergency department for immediate attention at which time they can do a Doppler at the bedside. S/P TKR (total knee replacement), left Assessment & Plan (09/19/2024 5:43 PM EDT): Patient underwent left TKR 1 year ago. Since losing weight her appliance malfunctioned, causing repeat surgery couple of months ago Assessment & Plan (2023 9:45 AM EDT): [...] use of insulin 12/25/2021 Assessment & Plan (09/19/2024 5:45 PM EDT): Since experiencing significant weight loss patient has been able to discontinue most of her glycemic medications. Currently only utilizing Farxiga 10 mg daily. Most recent available A1c was 4.3% Assessment & Plan (03/05/2024 12:50 PM EST): Patient has lost a significant amount of weight after some GI issues in the fall. She had resume checking her glucose at home regularly with readings in the 60s in recent days. She continues to take Janumet 50-1000 mg twice daily with meals. Her A1c in office today is 4.3%. Nory MANN'angie Assessment & Plan (2023 9:48 AM EDT): [...] for now Hypertension 12/25/2021 Assessment & Plan (09/19/2024 5:43 PM EDT): Patient checks blood pressure regularly at home with averages of less than 120/60 to 70s. Her blood pressure is noted to be 140/82 in office today. -Continue irbesartan 150 mg -Continue metoprolol XL 150 mg daily -Continue triamterene HCTZ 37.5-25 mg Assessment & Plan (03/05/2024 12:51 PM EST): Patient reports blood pressure 112/60 on average. Blood pressure obtained by SPRAY DRIER OPERATOR HELPER on presentation in office today is 180/80, [...] excess calories 1 02/24/2021 Assessment & Plan (09/19/2024 5:42 PM EDT): Patient's (Body mass index is 35.61 kg/m .) indicates that they are obese (BMI >30) with health conditions that include hypertension . Weight is improving [...] as much food as she once did Assessment & Plan (2023 9:47 AM EDT): [...] Encounters Date Type Department Care Team Description 09/12/2024 3:45 PM EDT Office Visit [facility] [address] [place] [address] [place] [phone] Catherine Morales, QC MANAGER Controlled type 2 diabetes mellitus without complication, without long-term current use of insulin (Primary Dx); Morbid (severe) obesity due to excess calories; Primary hypertension; S/P TKR (total knee replacement), left; Stage 3a chronic kidney disease; Tricuspid valve insufficiency, unspecified etiology 09/12/2024 Travel 07/26/2024 Telephone [facility] [address] [place] [address] [place] [phone] Taylor Pablo Appointment 07/04/2024 Telephone [facility] [address] [place] [phone] Catherine Morales, QC MANAGER from Last 3 Months Immunizations Immunization Administration [...] Mass Index 35.61 09/12/2024 4:03 PM EDT Plan of Treatment Health Maintenance Due Date [...] 04/0 02/2023, 07/09/2022 HEMOGLOBIN A1C 08/30/2024 03/02/2024, 07/1 06/2023, 05/16/2023, Additional history exists INFLUENZA VACCINE 11/14/2024 [...] Hemoglobin (Hb A1C) (03/02/2024 12:59 PM EST) Pathologist [facility] Hemoglobin A1C 4.9 4.5 - 5.7 % [facility] Lot Number [id number] [facility] Expiration Date [facility] Blood 03/02/2024 12:5 9 PM EST Catherine Morales APRN POINT OF CARE TEST ORDERABL ES Final Result [facility]
[address] [place] [address], * Lipid Panel (05/16/2023 9:57 AM EDT) [...] - 05/17/2023 8:08 AM EDT Performed at: [facility] [id number] Sales Store Checker: Manny Muñoz PhD, Phone: [phone] Catherine Ayse Morales APRN LAB BLOOD ORDERABLES Final Result Performing Organization Address [facility] Co de Phone Number [facility] [address] [place] [address], [place] [phone] [facility] [address] [place] [address], [place] [phone] * SCANNED - COLONOSCOPY (03/23/2023) Catherine Morales APRN CHART REVIEW TABS Final [...] 12:04 PM EDT 07/10/2022 Comment:Blood Release to [facility] i Narrative [facility] - 07/10/2022 8:09 AM EDT Performed at: [address] [id number] Sales Store Checker: Manny Muñoz PhD, Phone: [phone] Catherine Ayse Morales APRN LAB BLOOD ORDERABLES Final Result Performing Organization Address [facility] Co de Phone Number [facility] [address] [place] [address], [place] [phone] [facility] [address] [place] [address], [place] [phone] * DEXA Scan (08/04/2018) Anatomical Region Laterality Modality Other [facility] CHART REVIEW TABS Final Re sult * HM MAMMOGRAPHY (11/11/2017) Anatomical Region Laterality Modality Other [facility] HEALTH MAINTENANCE Final Resu lt from Last 3 Months or Most Recently Relevant to Health Maintenance Insurance [facility] [employer] PPO MEDICARE A & B Care Teams Physicist Astrophysics Relationship Specialty Start Date End Date Catherine Morales APRN [address] [place] [address] PCP - General Family Medicine 11/30/21
--- OUTSIDE RECORDS SUMMARY | 2024-09-20 11:31 | XMS_ITS | Encounter Summary ---
Author Organization [facility] Address [address] [place] [address] Care Team Providers Care Rn Managed Care Name Role Phone Catherine Morales FANNY Primary Care Provider [phone] Reason for Visit * Reason Onset Date Comments Appointment 07/26/2024 Encounter Details Date Type Department Care Team (Late st Contact Info) Description 07/26/2024 Telephone [facility] [address] [place] [address] [place] [phone] Taylor Pablo Appointment Social [...] on filedocumented in this encounter Care Teams Rn Managed Care Relationship Specialty Start Date End Date Catherine Morales APRN [address] [phone] PCP - General Family Medicine 11/30/21 documented as of this encounter
--- OUTSIDE RECORDS SUMMARY | 2024-09-20 11:31 | XMS_ITS | Encounter Summary ---
Author Organization [facility] Address [address] [id number] Care Team Providers Care Digital Experience Manager Name Role Phone Catherine Morales SERVICE AGENT Primary Care Provider [phone] Encounter Details Date Type Department Care Team (Latest Contact Info) Description 09/12/2024 Travel Social History Tobacco Use Types Packs/Day Years [...] on file documented as of this encounter Plan of Treatment Not on file documented as of this encounter Visit Diagnoses Not on filedocumented in this encounter Care Teams Digital Experience Manager Relationship Specialty Start Date End Date Catherine Morales APRN [address] [place] [id number] PCP - General Family Medicine 11/30/21 documented as of this encounter
[2024-09-20 12:06] LABS: Hematocrit 37.5 % (37.0-47.0); Hemoglobin 11.9 g/dL (12.2-16.2); Immature Granulocytes % 0.4 %; Mean Corpuscular HGB Conc 31.7 g/dL (31.8-35.4); Mean Corpuscular Hemoglobin 29.0 pg (27.0-31.2); Mean Corpuscular Volume 91.2 fl (81-99); Nucleated Red Blood Cells % 0 %; Platelet Count 123 K/mm3 (142-424); Red Blood Count 4.11 M/mm3 (4.20-5.40); Red Cell Distribution Width-SD 41.7 fL; White Blood Count 5.6 K/mm3 (4.8-10.8)
[2024-09-20 12:38] LABS: Chloride 98 mmol/L (98-107); Potassium 4.5 mmoL/L (3.5-5.1); Sodium 136 mmol/L (136-145)
[2024-09-20 12:41] LABS: Anion Gap 8.5 mEq/L (5-15); Blood Urea Nitrogen 29 mg/dl (7-17); Calcium 8.5 mg/dl (8.4-10.2); Carbon Dioxide 34 mmol/L (22.0-30.0); Creatinine,Serum 1.60 mg/dl (0.52-1.04); Estimated Glomerular Filt Rate 32 ml/min (>60); GFR (African American) 39 ML/MIN (>60); Glucose 149 mg/dl (74-100); Magnesium 1.4 mg/dl (1.6-2.3)
[2024-09-20 13:00] LABS: NT Pro Brain Natriuretic Pep. 2380 pg/mL (0-125)
[2024-09-20 13:09] LABS: Free Thyroxine Index 3.4 ug/dL (5.93-13.13); T4 (Thyroxine) 10.2 ug/dl (5.53-11.0); Triiodothryronine (T3) Uptake 33 % (23.5-40.5)
[2024-09-20 13:23] LABS: Thyroid Stimulating Hormone 7.19 uIU/mL (0.465-4.68)
== END 2024-09-20 23:59 | disposition home or self-care (01) ==
LOC: LAB 11:30
PROVIDERS: PCP Nurse Practitioner; Visit Provider Physician Assistant
DX: I11.0 Hypertensive heart disease with heart failure (principal); I50.9 Heart failure, unspecified; I25.10 Atherosclerotic heart disease of native coronary artery without angina pectoris; R60.0 Localized edema
CPT/HCPCS: 36415; 80048; 83735; 83880; 84436; 84443; 84479; 85025